=== PATIENT | female | born 1955 | race African-American/Black ===

== ENCOUNTER 2017-08-26 17:41 | Inpatient (IN) ==
[2017-08-26] MEDS ORDERED: VANCOMYCIN INJ 1,000 MG in SODIUM CHLORIDE 0.9% 250 ML IV STA (18:27)
[2017-08-26] MEDS ORDERED: hydrALAZINE 20 MG/1 ML VIAL IV STA (18:32)
[2017-08-26] MEDS ORDERED: ONDANSETRON 4 MG/2 ML VIAL IV STA (18:32)
[2017-08-26] MEDS ORDERED: MORPHINE 4 MG/1 ML VIAL IV STA (18:32)
[2017-08-26] MEDS ORDERED: FUROSEMIDE 100 MG/10 ML VIAL IV STA (18:32)
[2017-08-26] MEDS ORDERED: VANCOMYCIN 1,000 MG VIAL ONE (18:50)
[2017-08-26 19:29] LABS: Basophils % 0.1 % (0.0-0.8); Eosinophils # 0.1 10*3/uL (0.0-0.87); Eosinophils % 0.9 % (0.00-10.9); Hematocrit 36.9 VOL% (35.7-47.0); Hemoglobin 12.7 GM/DL (12.0-16.0); Immature Granulocytes % 0.4 %; Immature Granulocytes Absolute 0.03 #; Lymphocytes # 2.6 10*3/uL (1.4-4.0); Lymphocytes % 30.2 % (21.3-54.2); Mean Corpuscular HGB Conc 34.4 GM/DL (32-36); Mean Corpuscular Hemoglobin 32 PG (27-34); Mean Corpuscular Volume 91.6 FL (87-102); Mean Platelet Volume 13.3 FL (9.6-12.0); Monocytes # 0.8 10*3/uL (0.11-0.8); Monocytes % 9.1 % (1.7-12.7); Neutrophils # 5.1 10*3/uL (1.4-7.4); Neutrophils % 59.3 % (38.7-73.9); Platelet Count 223 T/CUMM (130-400); Red Blood Count 4.03 MC/CUMM (3.8-5.5); White Blood Count 8.6 T/CUMM (4-12)
[2017-08-26 19:38] LABS: INR 0.9; PT Patient Result 9.6 SECS
[2017-08-26 19:47] LABS: Apearance,Urine CLEAR (Clear); Bilirubin,Urine Negative (Negative); Blood, Urine Small mg/dL (Negative); Glucose,Urine (UA) >=500 mg/dL (Negative); Hyaline Casts,Urine 1 /LPF (0-3); Ketones,Urine Negative (Negative); Nitrite,Urine Negative (Negative); Protein,Urine 100 MG/DL; RBC,Urine 4 /HPF (0-4); Squamous Epithelial Cell,Urine Occasional /HPF (0-10); Urine Color Straw (Yellow); Urine Specific Gravity 1.015 (1.001-1.035); Urine Urobilinogen < 2.0 EU/DL (0.2-1.0); WBC,Urine 2 /HPF (0-6)
[2017-08-26 19:53] LABS: Alanine Aminotransferase 13 U/L (13-56); Albumin 2.9 G/DL (3.4-5.0); Alkaline Phosphatase 123 U/L (45-117); Aspartate Amino Transferase 9 U/L (0-37); Blood Urea Nitrogen 31 MG/DL (7-18); Calcium 9.2 MG/DL (8.5-10.1); Osmolality,Calculated 299.2 MOS/KG (273-304); Potassium 3.8 MMOL/L (3.5-5.1); Sodium 134 MMOL/L (136-145); Total Protein 7.8 G/DL (6.4-8.3); Troponin I Only < 0.015 NG/ML (0.00-0.045)
[2017-08-26 20:04] LABS: Glucose 547 MG/DL (74-106)
[2017-08-26] MEDS ORDERED: INSULIN REGULAR 100 UNIT/ML IV STA (20:08)
[2017-08-26] MEDS ORDERED: SODIUM CHLORIDE 0.9% 500 ML IV STA (20:09)
[2017-08-26] MEDS ORDERED: GLUCAGON 1 MG VIAL IM PRN (20:30)
[2017-08-26] MEDS ORDERED: DEXTROSE 50% 25 GM/50 ML VIAL IV PRN (20:30)
[2017-08-26] MEDS ORDERED: NITROGLYCERIN SL 0.4 MG TABLET SL PRN (20:32)
[2017-08-26] MEDS ORDERED: ENOXAPARIN 30 MG/0.3 ML SYRINGE SUBCUT SCH (21:00)
[2017-08-26] MEDS: SODIUM CHLORIDE 0.9% 1,000 ML IV SCH (21:45)
[2017-08-27] MEDS: INSULIN GLARGINE 100 UNIT/ML SUBCUT SCH ×2 (01:03→20:13)
[2017-08-27] MEDS: LOVASTATIN 20 MG TABLET PO SCH ×2 (01:10→20:12)
[2017-08-27] MEDS: CLINDAMYCIN INJ 600 MG in PREMIX 1 EACH IV SCH ×4 (01:10→20:11)
[2017-08-27] MEDS: INSULIN REGULAR 100 UNIT/ML SUBCUT SCH ×7 (01:11→22:14)
[2017-08-27] MEDS: CLOPIDOGREL 75 MG TABLET PO SCH ×2 (01:11→20:12)
[2017-08-27 05:49] LABS: Basophils % 0.2 % (0.0-0.8); Eosinophils # 0.1 10*3/uL (0.0-0.87); Eosinophils % 0.8 % (0.00-10.9); Hematocrit 34.5 VOL% (35.7-47.0); Hemoglobin 11.8 GM/DL (12.0-16.0); Immature Granulocytes % 0.5 %; Immature Granulocytes Absolute 0.04 #; Lymphocytes # 3.2 10*3/uL (1.4-4.0); Lymphocytes % 37.6 % (21.3-54.2); Mean Corpuscular HGB Conc 34.2 GM/DL (32-36); Mean Corpuscular Hemoglobin 31 PG (27-34); Mean Corpuscular Volume 91.5 FL (87-102); Mean Platelet Volume 13.3 FL (9.6-12.0); Monocytes # 0.7 10*3/uL (0.11-0.8); Monocytes % 8.5 % (1.7-12.7); Neutrophils # 4.5 10*3/uL (1.4-7.4); Neutrophils % 52.4 % (38.7-73.9); Platelet Count 227 T/CUMM (130-400); Red Blood Count 3.77 MC/CUMM (3.8-5.5); Red Cell Distribution Width 12.2 % (9.3-17.3); White Blood Count 8.6 T/CUMM (4-12)
[2017-08-27 06:08] LABS: Calcium 8.7 MG/DL (8.5-10.1); Osmolality,Calculated 292.5 MOS/KG (273-304); Potassium 3.6 MMOL/L (3.5-5.1)
[2017-08-27] MEDS: SODIUM CHLORIDE 0.9% 1,000 ML IV SCH ×4 (06:12→23:25)
[2017-08-27] MEDS: INSULIN LISPRO 100 UNIT/ML SUBCUT SCH ×3 (08:40→17:17)
[2017-08-27] MEDS: PANTOPRAZOLE 40 MG TABLET PO SCH (08:42)
[2017-08-27] MEDS: ISOSORBIDE MONONITRATE 30 MG TABLET PO SCH (08:42)
[2017-08-27] MEDS: ASPIRIN EC 81 MG TABLET PO SCH (08:42)
[2017-08-27] MEDS: ENOXAPARIN 40 MG/0.4 ML SYRINGE SUBCUT SCH (20:13)
[2017-08-28] MEDS: INSULIN REGULAR 100 UNIT/ML SUBCUT SCH ×6 (03:29→22:26)
[2017-08-28] MEDS: CLINDAMYCIN INJ 600 MG in PREMIX 1 EACH IV SCH ×3 (04:28→21:12)
[2017-08-28 06:26] LABS: Basophils % 0.1 % (0.0-0.8); Eosinophils # 0.1 10*3/uL (0.0-0.87); Eosinophils % 1.3 % (0.00-10.9); Hematocrit 33.8 VOL% (35.7-47.0); Hemoglobin 11.6 GM/DL (12.0-16.0); Immature Granulocytes % 0.2 %; Immature Granulocytes Absolute 0.02 #; Lymphocytes % 36.6 % (21.3-54.2); Mean Corpuscular HGB Conc 34.3 GM/DL (32-36); Mean Corpuscular Hemoglobin 31 PG (27-34); Mean Corpuscular Volume 90.9 FL (87-102); Mean Platelet Volume 13.6 FL (9.6-12.0); Monocytes # 0.8 10*3/uL (0.11-0.8); Monocytes % 9.3 % (1.7-12.7); NRBC # 0.02 10*3/uL; Neutrophils # 4.3 10*3/uL (1.4-7.4); Neutrophils % 52.5 % (38.7-73.9); Platelet Count 232 T/CUMM (130-400); Red Blood Count 3.72 MC/CUMM (3.8-5.5); Red Cell Distribution Width 12.6 % (9.3-17.3); White Blood Count 8.3 T/CUMM (4-12)
[2017-08-28 06:53] LABS: Calcium 8.4 MG/DL (8.5-10.1); Osmolality,Calculated 286.1 MOS/KG (273-304); Potassium 3.5 MMOL/L (3.5-5.1)
[2017-08-28] MEDS: ISOSORBIDE MONONITRATE 30 MG TABLET PO SCH (09:36)
[2017-08-28] MEDS: ASPIRIN EC 81 MG TABLET PO SCH (09:36)
[2017-08-28] MEDS: PANTOPRAZOLE 40 MG TABLET PO SCH (09:36)
[2017-08-28] MEDS: SODIUM CHLORIDE 0.9% 1,000 ML IV SCH (09:36)
[2017-08-28] MEDS: INSULIN LISPRO 100 UNIT/ML SUBCUT SCH ×3 (09:36→17:51)
[2017-08-28] MEDS: COLLAGENASE OINT 30 GM TUBE TOP SCH (12:58)
[2017-08-28] MEDS: LOVASTATIN 20 MG TABLET PO SCH (21:06)
[2017-08-28] MEDS: ENOXAPARIN 40 MG/0.4 ML SYRINGE SUBCUT SCH (21:06)
[2017-08-28] MEDS: CLOPIDOGREL 75 MG TABLET PO SCH (21:06)
[2017-08-28] MEDS: INSULIN GLARGINE 100 UNIT/ML SUBCUT SCH (21:07)
[2017-08-29] MEDS: INSULIN REGULAR 100 UNIT/ML SUBCUT SCH ×6 (02:22→22:12)
[2017-08-29] MEDS: CLINDAMYCIN INJ 600 MG in PREMIX 1 EACH IV SCH ×3 (04:41→20:40)
[2017-08-29 05:36] LABS: Basophils % 0.2 % (0.0-0.8); Eosinophils % 1.6 % (0.00-10.9); Hematocrit 33.7 VOL% (35.7-47.0); Hemoglobin 11.3 GM/DL (12.0-16.0); Immature Granulocytes % 0.4 %; Lymphocytes % 37.2 % (21.3-54.2); Mean Corpuscular HGB Conc 33.5 GM/DL (32-36); Mean Corpuscular Hemoglobin 31 PG (27-34); Mean Corpuscular Volume 93.4 FL (87-102); Mean Platelet Volume 13.2 FL (9.6-12.0); Monocytes % 8.9 % (1.7-12.7); Neutrophils % 51.7 % (38.7-73.9); Platelet Count 233 T/CUMM (130-400); Red Blood Count 3.61 MC/CUMM (3.8-5.5); Red Cell Distribution Width 12.5 % (9.3-17.3); White Blood Count 9.4 T/CUMM (4-12)
[2017-08-29 05:37] LABS: Eosinophils # 0.2 10*3/uL (0.0-0.87); Immature Granulocytes Absolute 0.04 #; Lymphocytes # 3.5 10*3/uL (1.4-4.0); Monocytes # 0.8 10*3/uL (0.11-0.8); Neutrophils # 4.8 10*3/uL (1.4-7.4)
[2017-08-29 06:05] LABS: Calcium 8.2 MG/DL (8.5-10.1); Osmolality,Calculated 286.8 MOS/KG (273-304); Potassium 3.2 MMOL/L (3.5-5.1)
[2017-08-29] MEDS: DEXTROSE 50% 25 GM/50 ML VIAL IV PRN (06:18)
[2017-08-29] MEDS: ASPIRIN EC 81 MG TABLET PO SCH (08:44)
[2017-08-29] MEDS: INSULIN LISPRO 100 UNIT/ML SUBCUT SCH ×3 (08:45→16:47)
[2017-08-29] MEDS: PANTOPRAZOLE 40 MG TABLET PO SCH (08:45)
[2017-08-29] MEDS: ISOSORBIDE MONONITRATE 30 MG TABLET PO SCH (08:45)
[2017-08-29] MEDS: COLLAGENASE OINT 30 GM TUBE TOP SCH (08:45)
[2017-08-29] MEDS: POTASSIUM CHLORIDE RIDER 10 MEQ in PREMIX 1 EACH IV SCH ×4 (11:51→16:46)
[2017-08-29] MEDS ORDERED: DOCUSATE SODIUM 100 MG CAPSULE PO PRN (19:34)
[2017-08-29] MEDS: CLOPIDOGREL 75 MG TABLET PO SCH (20:39)
[2017-08-29] MEDS: ENOXAPARIN 40 MG/0.4 ML SYRINGE SUBCUT SCH (20:39)
[2017-08-29] MEDS: LOVASTATIN 20 MG TABLET PO SCH (20:39)
[2017-08-29] MEDS: INSULIN GLARGINE 100 UNIT/ML SUBCUT SCH (20:41)
[2017-08-30] MEDS: INSULIN REGULAR 100 UNIT/ML SUBCUT SCH ×6 (01:25→21:12)
[2017-08-30] MEDS: CLINDAMYCIN INJ 600 MG in PREMIX 1 EACH IV SCH ×3 (05:35→21:09)
[2017-08-30 06:40] LABS: Basophils % 0.3 % (0.0-0.8); Eosinophils # 0.2 10*3/uL (0.0-0.87); Eosinophils % 2.8 % (0.00-10.9); Hematocrit 33.1 VOL% (35.7-47.0); Hemoglobin 11.3 GM/DL (12.0-16.0); Immature Granulocytes % 0.1 %; Immature Granulocytes Absolute 0.01 #; Lymphocytes # 3.1 10*3/uL (1.4-4.0); Mean Corpuscular HGB Conc 34.1 GM/DL (32-36); Mean Corpuscular Hemoglobin 31 PG (27-34); Mean Corpuscular Volume 90.4 FL (87-102); Mean Platelet Volume 12.9 FL (9.6-12.0); Monocytes # 0.7 10*3/uL (0.11-0.8); Monocytes % 10.4 % (1.7-12.7); Neutrophils % 42.4 % (38.7-73.9); Platelet Count 262 T/CUMM (130-400); Red Blood Count 3.66 MC/CUMM (3.8-5.5); Red Cell Distribution Width 12.8 % (9.3-17.3); White Blood Count 7.1 T/CUMM (4-12)
[2017-08-30 06:56] LABS: Calcium 8.4 MG/DL (8.5-10.1); Osmolality,Calculated 290.8 MOS/KG (273-304); Potassium 4.2 MMOL/L (3.5-5.1)
[2017-08-30] MEDS ORDERED: fentaNYL 100 MCG/2 ML VIAL IV ONE (08:29)
[2017-08-30] MEDS ORDERED: DIAZEPAM 5 MG TABLET PO ONE (08:29)
[2017-08-30] MEDS ORDERED: MIDAZOLAM 2 MG/2 ML VIAL IV ONE (08:29)
[2017-08-30] MEDS: INSULIN LISPRO 100 UNIT/ML SUBCUT SCH ×3 (08:52→17:13)
[2017-08-30] MEDS: ISOSORBIDE MONONITRATE 30 MG TABLET PO SCH (08:58)
[2017-08-30] MEDS: PANTOPRAZOLE 40 MG TABLET PO SCH (08:58)
[2017-08-30] MEDS ORDERED: HEPARIN/NACL 0.9% 2 UNITS/ML 2,000 ML IV ONE (10:48)
[2017-08-30] MEDS ORDERED: fentaNYL 100 MCG/2 ML VIAL ONE (10:57)
[2017-08-30] MEDS ORDERED: MIDAZOLAM 2 MG/2 ML VIAL ONE (10:58)
[2017-08-30] MEDS: COLLAGENASE OINT 30 GM TUBE TOP SCH (11:05)
[2017-08-30] MEDS: ASPIRIN EC 81 MG TABLET PO SCH (11:05)
[2017-08-30] MEDS ORDERED: HEPARIN 5,000 UNIT/1 ML VIAL ONE (11:51)
[2017-08-30] MEDS ORDERED: HEPARIN 5,000 UNIT/1 ML VIAL IV ONE (11:55)
[2017-08-30] MEDS ORDERED: hydrALAZINE 20 MG/1 ML VIAL ONE (12:20)
[2017-08-30] MEDS ORDERED: hydrALAZINE 20 MG/1 ML VIAL IV ONE (13:00)
[2017-08-30] MEDS: ACETAMINOPHEN 325 MG TABLET PO PRN (18:46)
[2017-08-30] MEDS: INSULIN GLARGINE 100 UNIT/ML SUBCUT SCH (21:07)
[2017-08-30] MEDS: CLOPIDOGREL 75 MG TABLET PO SCH (21:10)
[2017-08-30] MEDS: ENOXAPARIN 40 MG/0.4 ML SYRINGE SUBCUT SCH (21:11)
[2017-08-30] MEDS: LOVASTATIN 20 MG TABLET PO SCH (21:11)
[2017-08-31] MEDS: INSULIN REGULAR 100 UNIT/ML SUBCUT SCH ×6 (00:33→22:19)
[2017-08-31] MEDS: CLINDAMYCIN INJ 600 MG in PREMIX 1 EACH IV SCH ×3 (05:20→22:20)
[2017-08-31] MEDS ORDERED: ALBUTEROL/IPRATROPIUM 3 ML NEB RESP TX ONE ×2 (06:00→07:00)
[2017-08-31] MEDS ORDERED: FAMOTIDINE 20 MG TABLET PO ONE ×2 (06:00→06:30)
[2017-08-31 06:05] LABS: Basophils % 0.5 % (0.0-0.8); Eosinophils # 0.1 10*3/uL (0.0-0.87); Eosinophils % 1.4 % (0.00-10.9); Hematocrit 33.8 VOL% (35.7-47.0); Hemoglobin 11.5 GM/DL (12.0-16.0); Immature Granulocytes % 0.5 %; Immature Granulocytes Absolute 0.04 #; Lymphocytes # 1.8 10*3/uL (1.4-4.0); Lymphocytes % 21.2 % (21.3-54.2); Mean Corpuscular Hemoglobin 31 PG (27-34); Mean Corpuscular Volume 91.4 FL (87-102); Mean Platelet Volume 13.3 FL (9.6-12.0); Monocytes # 0.7 10*3/uL (0.11-0.8); Monocytes % 8.4 % (1.7-12.7); Neutrophils # 5.7 10*3/uL (1.4-7.4); Platelet Count 281 T/CUMM (130-400); Red Cell Distribution Width 13.2 % (9.3-17.3); White Blood Count 8.4 T/CUMM (4-12)
[2017-08-31 06:36] LABS: Calcium 8.4 MG/DL (8.5-10.1); Osmolality,Calculated 286.3 MOS/KG (273-304); Potassium 4.1 MMOL/L (3.5-5.1)
[2017-08-31] MEDS ORDERED: DIAZEPAM 5 MG TABLET PO ONE (07:00)
[2017-08-31] MEDS: ONDANSETRON 4 MG/2 ML VIAL IV PRN ×3 (08:12→22:34)
[2017-08-31] MEDS: FAMOTIDINE 20 MG/2 ML VIAL IV ONE ×2 (08:12→09:55)
[2017-08-31] MEDS ORDERED: LIDOCAINE 1% 20 ML VIAL ONE (08:30)
[2017-08-31] MEDS ORDERED: BUPIVACAINE 0.5% 50 ML VIAL ONE (09:11)
[2017-08-31] MEDS ORDERED: PROPOFOL 200 MG/20 ML VIAL IV ONE (09:46)
[2017-08-31] MEDS ORDERED: MIDAZOLAM 2 MG/2 ML VIAL ONE (09:47)
[2017-08-31] MEDS: INSULIN LISPRO 100 UNIT/ML SUBCUT SCH ×3 (09:56→17:16)
[2017-08-31] MEDS: ASPIRIN EC 81 MG TABLET PO SCH (10:46)
[2017-08-31] MEDS: PANTOPRAZOLE 40 MG TABLET PO SCH (10:46)
[2017-08-31] MEDS: ISOSORBIDE MONONITRATE 30 MG TABLET PO SCH (10:46)
[2017-08-31] MEDS: COLLAGENASE OINT 30 GM TUBE TOP SCH (10:46)
[2017-08-31] MEDS ORDERED: GLUCAGON 1 MG VIAL IM PRN (14:32)
[2017-08-31] MEDS ORDERED: DEXTROSE 50% 25 GM/50 ML VIAL IV PRN (14:32)
[2017-08-31] MEDS: LOVASTATIN 20 MG TABLET PO SCH (22:19)
[2017-08-31] MEDS: INSULIN GLARGINE 100 UNIT/ML SUBCUT SCH (22:20)
[2017-08-31] MEDS: ENOXAPARIN 40 MG/0.4 ML SYRINGE SUBCUT SCH (22:22)
[2017-08-31] MEDS: CLOPIDOGREL 75 MG TABLET PO SCH (22:22)
[2017-09-01] MEDS: INSULIN REGULAR 100 UNIT/ML SUBCUT SCH ×6 (00:33→21:04)
[2017-09-01] MEDS: ACETAMINOPHEN 325 MG TABLET PO PRN (00:33)
[2017-09-01 04:36] LABS: Basophils % 0.3 % (0.0-0.8); Eosinophils # 0.1 10*3/uL (0.0-0.87); Eosinophils % 0.9 % (0.00-10.9); Hemoglobin 9.8 GM/DL (12.0-16.0); Immature Granulocytes % 0.3 %; Immature Granulocytes Absolute 0.02 #; Lymphocytes # 1.4 10*3/uL (1.4-4.0); Lymphocytes % 20.3 % (21.3-54.2); Mean Corpuscular HGB Conc 32.7 GM/DL (32-36); Mean Corpuscular Hemoglobin 30 PG (27-34); Mean Corpuscular Volume 93.2 FL (87-102); Mean Platelet Volume 12.6 FL (9.6-12.0); Monocytes # 0.8 10*3/uL (0.11-0.8); Monocytes % 11.7 % (1.7-12.7); Neutrophils # 4.6 10*3/uL (1.4-7.4); Neutrophils % 66.5 % (38.7-73.9); Platelet Count 252 T/CUMM (130-400); Red Blood Count 3.22 MC/CUMM (3.8-5.5); White Blood Count 6.9 T/CUMM (4-12)
[2017-09-01] MEDS: CLINDAMYCIN INJ 600 MG in PREMIX 1 EACH IV SCH ×3 (05:31→21:21)
[2017-09-01] MEDS: ONDANSETRON 4 MG/2 ML VIAL IV PRN ×4 (06:54→21:18)
[2017-09-01 07:10] LABS: Calcium 8.2 MG/DL (8.5-10.1); Osmolality,Calculated 280.3 MOS/KG (273-304)
[2017-09-01] MEDS: DEXTROSE 50% 25 GM/50 ML VIAL IV PRN (07:33)
[2017-09-01] MEDS: INSULIN LISPRO 100 UNIT/ML SUBCUT SCH ×3 (08:06→16:57)
[2017-09-01] MEDS: PANTOPRAZOLE 40 MG TABLET PO SCH (08:12)
[2017-09-01] MEDS: ISOSORBIDE MONONITRATE 30 MG TABLET PO SCH (08:12)
[2017-09-01] MEDS: ASPIRIN EC 81 MG TABLET PO SCH (08:12)
[2017-09-01] MEDS: COLLAGENASE OINT 30 GM TUBE TOP SCH (09:03)
[2017-09-01] MEDS: SODIUM HYPOCHLORITE 0.25% IRRIG 473 ML BOTTLE TOP SCH (09:03)
[2017-09-01 13:01] LABS: Basophils % 0.2 % (0.0-0.8); Eosinophils # 0.1 10*3/uL (0.0-0.87); Eosinophils % 1.2 % (0.00-10.9); Hematocrit 29.6 VOL% (35.7-47.0); Hemoglobin 10.1 GM/DL (12.0-16.0); Immature Granulocytes % 0.4 %; Immature Granulocytes Absolute 0.03 #; Lymphocytes # 1.3 10*3/uL (1.4-4.0); Lymphocytes % 15.7 % (21.3-54.2); Mean Corpuscular HGB Conc 34.1 GM/DL (32-36); Mean Corpuscular Hemoglobin 31 PG (27-34); Mean Corpuscular Volume 90.5 FL (87-102); Monocytes % 11.8 % (1.7-12.7); Neutrophils # 5.9 10*3/uL (1.4-7.4); Neutrophils % 70.7 % (38.7-73.9); Platelet Count 251 T/CUMM (130-400); Red Blood Count 3.27 MC/CUMM (3.8-5.5); Red Cell Distribution Width 13.1 % (9.3-17.3); White Blood Count 8.4 T/CUMM (4-12)
[2017-09-01] MEDS: CLOPIDOGREL 75 MG TABLET PO SCH (21:16)
[2017-09-01] MEDS: LOVASTATIN 20 MG TABLET PO SCH (21:16)
[2017-09-01] MEDS: ENOXAPARIN 40 MG/0.4 ML SYRINGE SUBCUT SCH (21:18)
[2017-09-01] MEDS: INSULIN GLARGINE 100 UNIT/ML SUBCUT SCH (21:24)
[2017-09-02] MEDS: ONDANSETRON 4 MG/2 ML VIAL IV PRN ×2 (00:54→08:14)
[2017-09-02] MEDS: INSULIN REGULAR 100 UNIT/ML SUBCUT SCH ×4 (00:55→11:59)
[2017-09-02] MEDS: CLINDAMYCIN INJ 600 MG in PREMIX 1 EACH IV SCH ×2 (04:32→13:02)
[2017-09-02] MEDS: INSULIN LISPRO 100 UNIT/ML SUBCUT SCH ×2 (07:52→11:58)
[2017-09-02] MEDS: ASPIRIN EC 81 MG TABLET PO SCH (08:14)
[2017-09-02] MEDS: ISOSORBIDE MONONITRATE 30 MG TABLET PO SCH (08:14)
[2017-09-02] MEDS: PANTOPRAZOLE 40 MG TABLET PO SCH (08:14)
[2017-09-02] MEDS: COLLAGENASE OINT 30 GM TUBE TOP SCH (09:01)
[2017-09-02] MEDS: SODIUM HYPOCHLORITE 0.25% IRRIG 473 ML BOTTLE TOP SCH (09:01)
[2017-09-02 12:42] VITALS: BP 141/86
== END 2017-09-02 13:25 | disposition home or self-care (01) | DRG 364 ==
LOC: N.ED 17:41 → N.EDINP 17:41 → N.2E 21:21 → SUATTDRO 08-28 12:56
PROVIDERS: ADMIT Internal Medicine; ATTEND Internal Medicine Nephrology

== ENCOUNTER 2017-10-05 16:21 | Inpatient (IN) ==
[2017-10-05 18:20] LABS: Basophils % 0.2 % (0.0-0.8); Eosinophils # 0.1 10*3/uL (0.0-0.87); Eosinophils % 0.3 % (0.00-10.9); Hematocrit 26.5 VOL% (35.7-47.0); Immature Granulocytes % 0.9 %; Immature Granulocytes Absolute 0.16 #; Lymphocytes # 1.9 10*3/uL (1.4-4.0); Lymphocytes % 10.7 % (21.3-54.2); Mean Corpuscular Hemoglobin 31 PG (27-34); Mean Corpuscular Volume 89.8 FL (87-102); Mean Platelet Volume 13.2 FL (9.6-12.0); Monocytes # 1.3 10*3/uL (0.11-0.8); Monocytes % 7.6 % (1.7-12.7); Neutrophils # 14.1 10*3/uL (1.4-7.4); Neutrophils % 80.3 % (38.7-73.9); Platelet Count 319 T/CUMM (130-400); Red Blood Count 2.95 MC/CUMM (3.8-5.5); Red Cell Distribution Width 13.1 % (9.3-17.3); White Blood Count 17.5 T/CUMM (4-12)
[2017-10-05 18:41] LABS: Albumin 1.7 G/DL (3.4-5.0); Bilirubin,Total 0.6 MG/DL (0.2-1.0); Calcium 8.8 MG/DL (8.5-10.1); Osmolality,Calculated 282.1 MOS/KG (273-304); Potassium 3.4 MMOL/L (3.5-5.1); Total Protein 7.2 G/DL (6.4-8.3)
[2017-10-05] MEDS ORDERED: LABETALOL 20 MG/4 ML SYRINGE IV STA (19:46)
[2017-10-05] MEDS ORDERED: FUROSEMIDE 20 MG/2 ML VIAL IV STA (19:57)
[2017-10-05] MEDS ORDERED: FUROSEMIDE 40 MG/4 ML VIAL IV STA (20:01)
[2017-10-05] MEDS ORDERED: LABETALOL 100 MG/20 ML VIAL IV ONE (20:09)
[2017-10-05 20:46] LABS: Apearance,Urine Slightly Hazy (Clear); Bilirubin,Urine Negative (Negative); Blood, Urine Small mg/dL (Negative); Glucose,Urine (UA) >=500 mg/dL (Negative); Ketones,Urine Negative (Negative); Mucus,Urine Occasional /LPF (Occasional); Nitrite,Urine Negative (Negative); Protein,Urine >=500 MG/DL; RBC,Urine 1 /HPF (0-4); Squamous Epithelial Cell,Urine Occasional /HPF (0-10); Urine Color Yellow (Yellow); Urine Specific Gravity 1.017 (1.001-1.035); Urine Urobilinogen < 2.0 EU/DL (0.2-1.0); WBC,Urine 1 /HPF (0-6)
[2017-10-05] MEDS: ALBUTEROL/IPRATROPIUM 3 ML NEB RESP TX SCH (20:49)
[2017-10-05 21:03] LABS: Lactic Acid 2.4 MMOL/L (0.4-2.0)
[2017-10-05] MEDS ORDERED: MORPHINE 4 MG/1 ML VIAL IV STA (21:31)
[2017-10-05] MEDS ORDERED: ACETAMINOPHEN 325 MG TABLET PO ONE (21:31)
[2017-10-05] MEDS ORDERED: ACETAMINOPHEN 325 MG TABLET ONE (21:38)
[2017-10-05] MEDS ORDERED: LABETALOL 20 MG/4 ML SYRINGE IV PRN (21:38)
[2017-10-05] MEDS ORDERED: MORPHINE 4 MG/1 ML VIAL ONE (21:39)
[2017-10-05] MEDS ORDERED: GLUCAGON 1 MG VIAL IM PRN (22:41)
[2017-10-05] MEDS ORDERED: NITROGLYCERIN SL 0.4 MG TABLET SL PRN (22:41)
[2017-10-06] MEDS: CLOPIDOGREL 75 MG TABLET PO SCH ×2 (00:42→20:48)
[2017-10-06] MEDS: INSULIN GLARGINE 100 UNIT/ML SUBCUT SCH ×4 (00:42→20:56)
[2017-10-06] MEDS: GABAPENTIN 600 MG TABLET PO SCH ×2 (00:42→20:47)
[2017-10-06] MEDS: hydrALAZINE 25 MG TABLET PO SCH ×2 (00:42→08:42)
[2017-10-06] MEDS: FUROSEMIDE 40 MG/4 ML VIAL IV SCH ×2 (00:43→08:42)
[2017-10-06] MEDS: CARVEDILOL 12.5 MG TABLET PO SCH ×3 (00:43→20:48)
[2017-10-06] MEDS: LOVASTATIN 20 MG TABLET PO SCH ×2 (00:43→20:47)
[2017-10-06] MEDS: CLINDAMYCIN INJ 600 MG in PREMIX 1 EACH IV SCH ×4 (00:53→23:37)
[2017-10-06] MEDS: ALBUTEROL/IPRATROPIUM 3 ML NEB RESP TX SCH ×4 (01:07→19:32)
[2017-10-06] MEDS: MEROPENEM 500 MG in SODIUM CHLORIDE 0.9% 100 ML IV SCH ×3 (01:28→20:45)
[2017-10-06 05:34] LABS: Basophils % 0.1 % (0.0-0.8); Eosinophils % 0.2 % (0.00-10.9); Hematocrit 23.7 VOL% (35.7-47.0); Hemoglobin 7.9 GM/DL (12.0-16.0); Immature Granulocytes % 0.9 %; Immature Granulocytes Absolute 0.14 #; Lymphocytes % 13.5 % (21.3-54.2); Mean Corpuscular HGB Conc 33.3 GM/DL (32-36); Mean Corpuscular Hemoglobin 30 PG (27-34); Mean Corpuscular Volume 89.8 FL (87-102); Mean Platelet Volume 13.5 FL (9.6-12.0); Monocytes % 6.5 % (1.7-12.7); Neutrophils # 11.8 10*3/uL (1.4-7.4); Neutrophils % 78.8 % (38.7-73.9); Platelet Count 284 T/CUMM (130-400); Red Blood Count 2.64 MC/CUMM (3.8-5.5); Red Cell Distribution Width 12.9 % (9.3-17.3)
[2017-10-06 05:59] LABS: Hypochromasia 1+; Lymphocytes 10 % (20-55); Ovalocytes Slight; Platelet Estimate Adequate; Segmented Neutrophils 84 % (50-85); Total Cells Counted 100
[2017-10-06 06:27] LABS: Potassium 3.6 MMOL/L (3.5-5.1)
[2017-10-06 06:29] LABS: Calcium 8.2 MG/DL (8.5-10.1)
[2017-10-06 06:34] LABS: Osmolality,Calculated 285.1 MOS/KG (273-304)
[2017-10-06 06:57] LABS: Vitamin B12 1290 PG/ML (211-911)
[2017-10-06 07:20] LABS: Sedimentation Rate-Westergren 126 MM/HR (0-30)
[2017-10-06] MEDS ORDERED: hydrALAZINE 10 MG TABLET ONE (07:56)
[2017-10-06] MEDS: INSULIN LISPRO 100 UNIT/ML SUBCUT SCH ×3 (08:41→16:41)
[2017-10-06] MEDS: CITALOPRAM 20 MG TABLET PO SCH (08:42)
[2017-10-06] MEDS: ASPIRIN EC 325 MG TABLET PO SCH (08:42)
[2017-10-06] MEDS: ISOSORBIDE MONONITRATE 30 MG TABLET PO SCH (08:42)
[2017-10-06] MEDS ORDERED: CLOPIDOGREL 75 MG TABLET PO SCH (09:00)
[2017-10-06] MEDS ORDERED: ASPIRIN EC 81 MG TABLET PO SCH (09:00)
[2017-10-06] MEDS ORDERED: INSULIN GLARGINE 100 UNIT/ML SUBCUT ONE (11:00)
[2017-10-06] MEDS: SODIUM HYPOCHLORITE 0.25% IRRIG 473 ML BOTTLE TOP SCH (12:35)
[2017-10-06] MEDS: COLLAGENASE OINT 30 GM TUBE TOP SCH (12:35)
[2017-10-06] MEDS: ASCORBIC ACID 500 MG TABLET PO SCH ×2 (12:35→20:48)
[2017-10-06] MEDS: POTASSIUM CHLORIDE INJ 10 MEQ in SODIUM CHLORIDE 0.9% 1,000 ML IV SCH (13:02)
[2017-10-07] MEDS: ALBUTEROL/IPRATROPIUM 3 ML NEB RESP TX SCH ×5 (00:15→23:42)
[2017-10-07] MEDS: DEXTROSE 50% 25 GM/50 ML VIAL IV PRN ×2 (03:35→16:58)
[2017-10-07] MEDS: POTASSIUM CHLORIDE INJ 10 MEQ in SODIUM CHLORIDE 0.9% 1,000 ML IV SCH ×2 (03:54→21:37)
[2017-10-07 04:57] LABS: Basophils % 0.2 % (0.0-0.8); Eosinophils # 0.2 10*3/uL (0.0-0.87); Eosinophils % 1.3 % (0.00-10.9); Hematocrit 24.5 VOL% (35.7-47.0); Hemoglobin 8.3 GM/DL (12.0-16.0); Immature Granulocytes % 0.6 %; Immature Granulocytes Absolute 0.08 #; Lymphocytes # 1.6 10*3/uL (1.4-4.0); Lymphocytes % 12.2 % (21.3-54.2); Mean Corpuscular HGB Conc 33.9 GM/DL (32-36); Mean Corpuscular Hemoglobin 30 PG (27-34); Mean Corpuscular Volume 88.8 FL (87-102); Mean Platelet Volume 13.3 FL (9.6-12.0); Monocytes % 7.6 % (1.7-12.7); Neutrophils # 9.9 10*3/uL (1.4-7.4); Neutrophils % 78.1 % (38.7-73.9); Platelet Count 297 T/CUMM (130-400); Red Blood Count 2.76 MC/CUMM (3.8-5.5); Red Cell Distribution Width 13.4 % (9.3-17.3); White Blood Count 12.7 T/CUMM (4-12)
[2017-10-07 05:25] LABS: Calcium 8.2 MG/DL (8.5-10.1); Osmolality,Calculated 269.9 MOS/KG (273-304); Potassium 3.4 MMOL/L (3.5-5.1)
[2017-10-07] MEDS: CLINDAMYCIN INJ 600 MG in PREMIX 1 EACH IV SCH ×3 (05:27→22:10)
[2017-10-07 05:39] LABS: Band Neutrophils 3 % (0-10); Burr Cells Slight; Eosinophils 1 % (0-10); Hypochromasia 1+; Lymphocytes 12 % (20-55); Ovalocytes Slight; Platelet Estimate Adequate; Segmented Neutrophils 70 % (50-85); Total Cells Counted 100
[2017-10-07] MEDS ORDERED: INSULIN GLARGINE 100 UNIT/ML SUBCUT SCH (09:00)
[2017-10-07] MEDS: INSULIN LISPRO 100 UNIT/ML SUBCUT SCH ×4 (09:08→21:37)
[2017-10-07] MEDS: ASCORBIC ACID 500 MG TABLET PO SCH ×2 (09:08→21:36)
[2017-10-07] MEDS: ISOSORBIDE MONONITRATE 30 MG TABLET PO SCH (09:09)
[2017-10-07] MEDS: CARVEDILOL 12.5 MG TABLET PO SCH ×2 (09:09→21:36)
[2017-10-07] MEDS: CITALOPRAM 20 MG TABLET PO SCH (09:09)
[2017-10-07] MEDS: ASPIRIN EC 325 MG TABLET PO SCH (09:09)
[2017-10-07] MEDS: MEROPENEM 500 MG in SODIUM CHLORIDE 0.9% 100 ML IV SCH ×2 (10:08→21:37)
[2017-10-07] MEDS: COLLAGENASE OINT 30 GM TUBE TOP SCH (10:10)
[2017-10-07] MEDS: SODIUM HYPOCHLORITE 0.25% IRRIG 473 ML BOTTLE TOP SCH (10:10)
[2017-10-07] MEDS ORDERED: GLUCAGON 1 MG VIAL IM PRN (10:51)
[2017-10-07] MEDS ORDERED: DEXTROSE 50% 25 GM/50 ML VIAL IV PRN (10:51)
[2017-10-07] MEDS: LOVASTATIN 20 MG TABLET PO SCH (21:36)
[2017-10-07] MEDS: CLOPIDOGREL 75 MG TABLET PO SCH (21:36)
[2017-10-07] MEDS: GABAPENTIN 600 MG TABLET PO SCH (21:36)
[2017-10-07] MEDS: INSULIN GLARGINE 100 UNIT/ML SUBCUT SCH (21:37)
[2017-10-08 05:21] LABS: Calcium 7.8 MG/DL (8.5-10.1); Osmolality,Calculated 264.9 MOS/KG (273-304); Potassium 4.1 MMOL/L (3.5-5.1)
[2017-10-08] MEDS: CLINDAMYCIN INJ 600 MG in PREMIX 1 EACH IV SCH ×3 (05:45→23:35)
[2017-10-08] MEDS: ALBUTEROL/IPRATROPIUM 3 ML NEB RESP TX SCH ×3 (07:00→19:23)
[2017-10-08] MEDS: INSULIN LISPRO 100 UNIT/ML SUBCUT SCH ×3 (08:39→17:39)
[2017-10-08] MEDS: ASCORBIC ACID 500 MG TABLET PO SCH ×2 (08:40→22:04)
[2017-10-08] MEDS: CARVEDILOL 12.5 MG TABLET PO SCH ×2 (08:40→22:05)
[2017-10-08] MEDS: CITALOPRAM 20 MG TABLET PO SCH (08:40)
[2017-10-08] MEDS: ISOSORBIDE MONONITRATE 30 MG TABLET PO SCH (08:40)
[2017-10-08] MEDS: ASPIRIN EC 325 MG TABLET PO SCH (08:40)
[2017-10-08] MEDS: MEROPENEM 500 MG in SODIUM CHLORIDE 0.9% 100 ML IV SCH ×2 (08:43→22:04)
[2017-10-08] MEDS: SODIUM HYPOCHLORITE 0.25% IRRIG 473 ML BOTTLE TOP SCH (08:47)
[2017-10-08] MEDS ORDERED: INSULIN GLARGINE 100 UNIT/ML SUBCUT SCH (09:00)
[2017-10-08 09:30] LABS: Hemoglobin A1 (Alkaline) 97.8 % (96.5-98.5); Hemoglobin A2 (Alkaline) 2.2 % (1.5-3.5)
[2017-10-08] MEDS: COLLAGENASE OINT 30 GM TUBE TOP SCH (10:32)
[2017-10-08] MEDS: POTASSIUM CHLORIDE INJ 10 MEQ in SODIUM CHLORIDE 0.9% 1,000 ML IV SCH (15:34)
[2017-10-08] MEDS: INSULIN GLARGINE 100 UNIT/ML SUBCUT SCH (22:03)
[2017-10-08] MEDS: GABAPENTIN 600 MG TABLET PO SCH (22:04)
[2017-10-08] MEDS: CLOPIDOGREL 75 MG TABLET PO SCH (22:05)
[2017-10-08] MEDS: LOVASTATIN 20 MG TABLET PO SCH (22:05)
[2017-10-09] MEDS: ALBUTEROL/IPRATROPIUM 3 ML NEB RESP TX SCH ×4 (00:34→20:46)
[2017-10-09 03:54] LABS: Basophils % 0.1 % (0.0-0.8); Eosinophils # 0.1 10*3/uL (0.0-0.87); Eosinophils % 0.9 % (0.00-10.9); Immature Granulocytes % 0.7 %; Immature Granulocytes Absolute 0.09 #; Lymphocytes # 3.1 10*3/uL (1.4-4.0); Lymphocytes % 22.7 % (21.3-54.2); Mean Corpuscular HGB Conc 33.3 GM/DL (32-36); Mean Corpuscular Hemoglobin 30 PG (27-34); Mean Corpuscular Volume 89.7 FL (87-102); Mean Platelet Volume 12.8 FL (9.6-12.0); Monocytes # 1.2 10*3/uL (0.11-0.8); Monocytes % 8.4 % (1.7-12.7); Neutrophils # 9.2 10*3/uL (1.4-7.4); Neutrophils % 67.2 % (38.7-73.9); Platelet Count 301 T/CUMM (130-400); Red Blood Count 2.34 MC/CUMM (3.8-5.5); Red Cell Distribution Width 13.8 % (9.3-17.3); White Blood Count 13.6 T/CUMM (4-12)
[2017-10-09] MEDS: POTASSIUM CHLORIDE INJ 10 MEQ in SODIUM CHLORIDE 0.9% 1,000 ML IV SCH ×2 (04:06→21:38)
[2017-10-09 04:14] LABS: Osmolality,Calculated 266.1 MOS/KG (273-304); Potassium 4.5 MMOL/L (3.5-5.1)
[2017-10-09 04:56] LABS: Band Neutrophils 1 % (0-10); Eosinophils 1 % (0-10); Hypochromasia 1+; Lymphocytes 26 % (20-55); Ovalocytes Slight; Platelet Estimate Adequate; Segmented Neutrophils 62 % (50-85); Total Cells Counted 100
[2017-10-09] MEDS: ISOSORBIDE MONONITRATE 30 MG TABLET PO SCH (08:20)
[2017-10-09] MEDS: ASCORBIC ACID 500 MG TABLET PO SCH ×2 (08:20→21:37)
[2017-10-09] MEDS: ASPIRIN EC 81 MG TABLET PO SCH (08:20)
[2017-10-09] MEDS: CITALOPRAM 20 MG TABLET PO SCH (08:20)
[2017-10-09] MEDS: INSULIN LISPRO 100 UNIT/ML SUBCUT SCH ×3 (08:21→16:00)
[2017-10-09] MEDS: CLINDAMYCIN INJ 600 MG in PREMIX 1 EACH IV SCH ×3 (08:21→23:22)
[2017-10-09] MEDS: CARVEDILOL 12.5 MG TABLET PO SCH ×2 (08:21→21:32)
[2017-10-09] MEDS: SODIUM HYPOCHLORITE 0.25% IRRIG 473 ML BOTTLE TOP SCH (08:22)
[2017-10-09] MEDS ORDERED: SODIUM CHLORIDE 0.9% 1,000 ML IV PRN (08:50)
[2017-10-09] MEDS: MEROPENEM 500 MG in SODIUM CHLORIDE 0.9% 100 ML IV SCH ×2 (10:12→21:38)
[2017-10-09] MEDS: COLLAGENASE OINT 30 GM TUBE TOP SCH (10:12)
[2017-10-09] MEDS: INSULIN GLARGINE 100 UNIT/ML SUBCUT SCH (21:32)
[2017-10-09] MEDS: LOVASTATIN 20 MG TABLET PO SCH (21:38)
[2017-10-09] MEDS: GABAPENTIN 600 MG TABLET PO SCH (21:38)
[2017-10-09] MEDS: CLOPIDOGREL 75 MG TABLET PO SCH (21:38)
[2017-10-10] MEDS: ALBUTEROL/IPRATROPIUM 3 ML NEB RESP TX SCH ×4 (00:45→19:11)
[2017-10-10] MEDS: POTASSIUM CHLORIDE INJ 10 MEQ in SODIUM CHLORIDE 0.9% 1,000 ML IV SCH (03:59)
[2017-10-10 04:24] LABS: Basophils % 0.1 % (0.0-0.8); Eosinophils # 0.1 10*3/uL (0.0-0.87); Eosinophils % 0.6 % (0.00-10.9); Hemoglobin 8.1 GM/DL (12.0-16.0); Immature Granulocytes % 1.4 %; Lymphocytes # 2.4 10*3/uL (1.4-4.0); Lymphocytes % 17.2 % (21.3-54.2); Mean Corpuscular HGB Conc 33.8 GM/DL (32-36); Mean Corpuscular Hemoglobin 30 PG (27-34); Mean Corpuscular Volume 88.2 FL (87-102); Mean Platelet Volume 12.4 FL (9.6-12.0); Monocytes # 1.3 10*3/uL (0.11-0.8); Monocytes % 9.3 % (1.7-12.7); Neutrophils # 9.9 10*3/uL (1.4-7.4); Neutrophils % 71.4 % (38.7-73.9); Platelet Count 316 T/CUMM (130-400); Red Blood Count 2.72 MC/CUMM (3.8-5.5); White Blood Count 13.9 T/CUMM (4-12)
[2017-10-10 05:04] LABS: Calcium 7.9 MG/DL (8.5-10.1); Osmolality,Calculated 260.8 MOS/KG (273-304); Potassium 5.6 MMOL/L (3.5-5.1)
[2017-10-10] MEDS: CLINDAMYCIN INJ 600 MG in PREMIX 1 EACH IV SCH ×3 (05:13→21:23)
[2017-10-10] MEDS: ASPIRIN EC 81 MG TABLET PO SCH (09:15)
[2017-10-10] MEDS: MEROPENEM 500 MG in SODIUM CHLORIDE 0.9% 100 ML IV SCH ×2 (09:15→22:42)
[2017-10-10] MEDS: ASCORBIC ACID 500 MG TABLET PO SCH ×2 (09:15→21:25)
[2017-10-10] MEDS: CITALOPRAM 20 MG TABLET PO SCH (09:15)
[2017-10-10] MEDS: CARVEDILOL 12.5 MG TABLET PO SCH ×2 (09:15→21:25)
[2017-10-10] MEDS: ISOSORBIDE MONONITRATE 30 MG TABLET PO SCH (09:15)
[2017-10-10] MEDS: SODIUM HYPOCHLORITE 0.25% IRRIG 473 ML BOTTLE TOP SCH (12:03)
[2017-10-10] MEDS: COLLAGENASE OINT 30 GM TUBE TOP SCH (12:03)
[2017-10-10] MEDS: INSULIN LISPRO 100 UNIT/ML SUBCUT SCH ×2 (12:03→16:47)
[2017-10-10] MEDS: INSULIN GLARGINE 100 UNIT/ML SUBCUT SCH (20:58)
[2017-10-10] MEDS: CLOPIDOGREL 75 MG TABLET PO SCH (21:25)
[2017-10-10] MEDS: LOVASTATIN 20 MG TABLET PO SCH (21:25)
[2017-10-10] MEDS: GABAPENTIN 600 MG TABLET PO SCH (21:26)
[2017-10-10] MEDS ORDERED: SODIUM CHLORIDE 1 GM TABLET PO ONE (21:30)
[2017-10-10] MEDS ORDERED: ONDANSETRON 4 MG/2 ML VIAL ONE (21:40)
[2017-10-11] MEDS: ALBUTEROL/IPRATROPIUM 3 ML NEB RESP TX SCH ×4 (00:34→19:20)
[2017-10-11 05:15] LABS: Basophils % 0.2 % (0.0-0.8); Eosinophils # 0.2 10*3/uL (0.0-0.87); Eosinophils % 1.4 % (0.00-10.9); Hematocrit 24.7 VOL% (35.7-47.0); Hemoglobin 8.3 GM/DL (12.0-16.0); Immature Granulocytes % 2.2 %; Immature Granulocytes Absolute 0.28 #; Lymphocytes # 2.7 10*3/uL (1.4-4.0); Lymphocytes % 21.9 % (21.3-54.2); Mean Corpuscular HGB Conc 33.6 GM/DL (32-36); Mean Corpuscular Hemoglobin 30 PG (27-34); Mean Corpuscular Volume 89.5 FL (87-102); Monocytes # 1.3 10*3/uL (0.11-0.8); Monocytes % 10.2 % (1.7-12.7); Neutrophils % 64.1 % (38.7-73.9); Platelet Count 338 T/CUMM (130-400); Red Blood Count 2.76 MC/CUMM (3.8-5.5); Red Cell Distribution Width 13.8 % (9.3-17.3); White Blood Count 12.5 T/CUMM (4-12)
[2017-10-11 05:58] LABS: Osmolality,Calculated 261.9 MOS/KG (273-304); Potassium 5.9 MMOL/L (3.5-5.1)
[2017-10-11] MEDS: CLINDAMYCIN INJ 600 MG in PREMIX 1 EACH IV SCH ×3 (06:26→22:19)
[2017-10-11] MEDS: INSULIN LISPRO 100 UNIT/ML SUBCUT SCH ×3 (08:52→17:11)
[2017-10-11] MEDS: MEROPENEM 500 MG in SODIUM CHLORIDE 0.9% 100 ML IV SCH ×2 (10:23→21:36)
[2017-10-11] MEDS: SODIUM CHLORIDE 0.9% 1,000 ML IV SCH ×2 (10:23→21:36)
[2017-10-11] MEDS: CITALOPRAM 20 MG TABLET PO SCH (10:27)
[2017-10-11] MEDS: ASPIRIN EC 81 MG TABLET PO SCH (10:27)
[2017-10-11] MEDS: ASCORBIC ACID 500 MG TABLET PO SCH ×2 (10:27→21:34)
[2017-10-11] MEDS: ISOSORBIDE MONONITRATE 30 MG TABLET PO SCH (10:27)
[2017-10-11] MEDS: SODIUM POLYSTYRENE SULFATE 15 GM/60 ML BOTTLE PO SCH ×3 (10:27→22:42)
[2017-10-11] MEDS: CARVEDILOL 12.5 MG TABLET PO SCH ×2 (10:27→21:35)
[2017-10-11] MEDS: SODIUM HYPOCHLORITE 0.25% IRRIG 473 ML BOTTLE TOP SCH (10:28)
[2017-10-11] MEDS: COLLAGENASE OINT 30 GM TUBE TOP SCH (10:28)
[2017-10-11 11:17] LABS: Amorphous Crystals,Urine Occasional /HPF (Few); Apearance,Urine Slightly Hazy (Clear); Bilirubin,Urine Negative (Negative); Blood, Urine Negative (Negative); Glucose,Urine (UA) 50 mg/dL (Negative); Ketones,Urine Negative (Negative); Mucus,Urine Occasional /LPF (Occasional); Nitrite,Urine Negative (Negative); Protein,Urine 100 MG/DL; RBC,Urine 3 /HPF (0-4); Squamous Epithelial Cell,Urine Occasional /HPF (0-10); Urine Color Yellow (Yellow); Urine Specific Gravity 1.013 (1.001-1.035); Urine Urobilinogen < 2.0 EU/DL (0.2-1.0)
[2017-10-11] MEDS: ONDANSETRON 4 MG TABLET PO PRN ×2 (17:15→21:35)
[2017-10-11 17:50] LABS: Osmolality,Calculated 260.3 MOS/KG (273-304); Potassium 5.8 MMOL/L (3.5-5.1)
[2017-10-11] MEDS ORDERED: SODIUM CHLORIDE 1 GM TABLET PO ONE (20:53)
[2017-10-11 21:19] LABS: Calcium 7.5 MG/DL (8.5-10.1); Osmolality,Calculated 267.6 MOS/KG (273-304); Potassium 5.3 MMOL/L (3.5-5.1)
[2017-10-11 21:25] LABS: Apearance,Urine CLOUDY (Clear); Bacteria,Urine Moderate /HPF (Few); Bilirubin,Urine Negative (Negative); Blood, Urine Negative (Negative); Glucose,Urine (UA) 150 mg/dL (Negative); Ketones,Urine Negative (Negative); Nitrite,Urine Negative (Negative); Protein,Urine 100 MG/DL; RBC,Urine 4 /HPF (0-4); Squamous Epithelial Cell,Urine Occasional /HPF (0-10); Urine Color Yellow (Yellow); Urine Urobilinogen < 2.0 EU/DL (0.2-1.0); WBC,Urine 9 /HPF (0-6)
[2017-10-11] MEDS: CLOPIDOGREL 75 MG TABLET PO SCH (21:34)
[2017-10-11] MEDS: LOVASTATIN 20 MG TABLET PO SCH (21:34)
[2017-10-11] MEDS: INSULIN GLARGINE 100 UNIT/ML SUBCUT SCH (21:35)
[2017-10-11] MEDS: GABAPENTIN 600 MG TABLET PO SCH (21:35)
[2017-10-11 22:12] LABS: Hepatitis A Ab IgM Quant 0.25 Index; Hepatitis A Ab IgM Result Negative (Negative); Hepatitis B Core IgM Quant < 0.05 Index; Hepatitis B Core IgM Result Negative (Negative); Hepatitis B Surface Ag Quant < 0.10 Index; Hepatitis B Surface Ag Result Negative (Negative); Hepatitis C Virus Ab Quant 0.02 Index; Hepatitis C Virus Ab Result Negative (Negative)
[2017-10-12] MEDS: ALBUTEROL/IPRATROPIUM 3 ML NEB RESP TX SCH ×4 (00:33→19:37)
[2017-10-12] MEDS: SODIUM CHLORIDE 0.9% 1,000 ML IV SCH ×4 (01:56→23:03)
[2017-10-12] MEDS: SODIUM POLYSTYRENE SULFATE 15 GM/60 ML BOTTLE PO SCH ×2 (05:01→05:08)
[2017-10-12 05:43] LABS: Basophils % 0.1 % (0.0-0.8); Eosinophils # 0.1 10*3/uL (0.0-0.87); Eosinophils % 1.2 % (0.00-10.9); Hematocrit 24.1 VOL% (35.7-47.0); Hemoglobin 8.2 GM/DL (12.0-16.0); Immature Granulocytes % 1.8 %; Immature Granulocytes Absolute 0.19 #; Lymphocytes # 1.9 10*3/uL (1.4-4.0); Lymphocytes % 17.9 % (21.3-54.2); Mean Corpuscular Hemoglobin 30 PG (27-34); Mean Corpuscular Volume 88.3 FL (87-102); Mean Platelet Volume 11.7 FL (9.6-12.0); Monocytes # 0.9 10*3/uL (0.11-0.8); Monocytes % 8.1 % (1.7-12.7); Neutrophils # 7.6 10*3/uL (1.4-7.4); Neutrophils % 70.9 % (38.7-73.9); Platelet Count 394 T/CUMM (130-400); Red Blood Count 2.73 MC/CUMM (3.8-5.5); Red Cell Distribution Width 13.4 % (9.3-17.3); White Blood Count 10.7 T/CUMM (4-12)
[2017-10-12 05:59] LABS: Calcium 7.8 MG/DL (8.5-10.1); Osmolality,Calculated 266.6 MOS/KG (273-304); Potassium 4.7 MMOL/L (3.5-5.1)
[2017-10-12] MEDS: CLINDAMYCIN INJ 600 MG in PREMIX 1 EACH IV SCH ×3 (06:22→21:59)
[2017-10-12] MEDS: INSULIN LISPRO 100 UNIT/ML SUBCUT SCH ×3 (08:43→17:14)
[2017-10-12] MEDS: MEROPENEM 500 MG in SODIUM CHLORIDE 0.9% 100 ML IV SCH ×2 (10:09→21:01)
[2017-10-12] MEDS: ISOSORBIDE MONONITRATE 30 MG TABLET PO SCH (10:10)
[2017-10-12] MEDS: ASCORBIC ACID 500 MG TABLET PO SCH ×2 (10:10→21:00)
[2017-10-12] MEDS: CARVEDILOL 12.5 MG TABLET PO SCH ×2 (10:11→21:00)
[2017-10-12] MEDS: COLLAGENASE OINT 30 GM TUBE TOP SCH (10:11)
[2017-10-12] MEDS: ASPIRIN EC 81 MG TABLET PO SCH (10:11)
[2017-10-12] MEDS: CITALOPRAM 20 MG TABLET PO SCH (10:11)
[2017-10-12] MEDS: SODIUM HYPOCHLORITE 0.25% IRRIG 473 ML BOTTLE TOP SCH (10:11)
[2017-10-12] MEDS: FUROSEMIDE 40 MG/4 ML VIAL IV SCH (16:31)
[2017-10-12] MEDS: INSULIN GLARGINE 100 UNIT/ML SUBCUT SCH (20:14)
[2017-10-12] MEDS: GABAPENTIN 600 MG TABLET PO SCH (21:00)
[2017-10-12] MEDS: CLOPIDOGREL 75 MG TABLET PO SCH (21:00)
[2017-10-12] MEDS: LOVASTATIN 20 MG TABLET PO SCH (21:00)
[2017-10-12] MEDS ORDERED: ONDANSETRON 4 MG/2 ML VIAL ONE (21:11)
[2017-10-12] MEDS: ONDANSETRON 4 MG/2 ML VIAL IV PRN (21:13)
[2017-10-13] MEDS: ALBUTEROL/IPRATROPIUM 3 ML NEB RESP TX SCH ×4 (00:27→19:52)
[2017-10-13 04:15] LABS: Basophils % 0.1 % (0.0-0.8); Eosinophils # 0.2 10*3/uL (0.0-0.87); Eosinophils % 1.5 % (0.00-10.9); Hematocrit 23.7 VOL% (35.7-47.0); Immature Granulocytes Absolute 0.12 #; Lymphocytes # 2.1 10*3/uL (1.4-4.0); Lymphocytes % 18.7 % (21.3-54.2); Mean Corpuscular HGB Conc 33.8 GM/DL (32-36); Mean Corpuscular Hemoglobin 30 PG (27-34); Mean Corpuscular Volume 88.1 FL (87-102); Mean Platelet Volume 11.3 FL (9.6-12.0); Monocytes # 1.1 10*3/uL (0.11-0.8); Monocytes % 9.5 % (1.7-12.7); Neutrophils # 7.9 10*3/uL (1.4-7.4); Neutrophils % 69.2 % (38.7-73.9); Platelet Count 415 T/CUMM (130-400); Red Blood Count 2.69 MC/CUMM (3.8-5.5); Red Cell Distribution Width 13.7 % (9.3-17.3); White Blood Count 11.4 T/CUMM (4-12)
[2017-10-13 04:48] LABS: Calcium 7.5 MG/DL (8.5-10.1); Osmolality,Calculated 274.1 MOS/KG (273-304); Potassium 4.3 MMOL/L (3.5-5.1)
[2017-10-13] MEDS: CLINDAMYCIN INJ 600 MG in PREMIX 1 EACH IV SCH ×3 (05:30→22:52)
[2017-10-13] MEDS: CARVEDILOL 12.5 MG TABLET PO SCH ×2 (08:11→21:15)
[2017-10-13] MEDS: INSULIN LISPRO 100 UNIT/ML SUBCUT SCH ×3 (08:12→16:36)
[2017-10-13] MEDS: ASPIRIN EC 81 MG TABLET PO SCH (08:12)
[2017-10-13] MEDS: CITALOPRAM 20 MG TABLET PO SCH (08:12)
[2017-10-13] MEDS: ASCORBIC ACID 500 MG TABLET PO SCH ×2 (08:12→21:15)
[2017-10-13] MEDS: ISOSORBIDE MONONITRATE 30 MG TABLET PO SCH (08:12)
[2017-10-13] MEDS: FUROSEMIDE 40 MG/4 ML VIAL IV SCH (08:13)
[2017-10-13] MEDS: MEROPENEM 500 MG in SODIUM CHLORIDE 0.9% 100 ML IV SCH ×2 (08:18→21:15)
[2017-10-13] MEDS: COLLAGENASE OINT 30 GM TUBE TOP SCH (08:21)
[2017-10-13] MEDS: SODIUM HYPOCHLORITE 0.25% IRRIG 473 ML BOTTLE TOP SCH (08:21)
[2017-10-13] MEDS: SODIUM CHLORIDE 0.9% 1,000 ML IV SCH (12:49)
[2017-10-13] MEDS: INSULIN GLARGINE 100 UNIT/ML SUBCUT SCH (21:10)
[2017-10-13] MEDS: LOVASTATIN 20 MG TABLET PO SCH (21:14)
[2017-10-13] MEDS: CLOPIDOGREL 75 MG TABLET PO SCH (21:14)
[2017-10-13] MEDS: GABAPENTIN 600 MG TABLET PO SCH (21:15)
[2017-10-14] MEDS: ALBUTEROL/IPRATROPIUM 3 ML NEB RESP TX SCH ×4 (00:56→20:04)
[2017-10-14] MEDS: SODIUM CHLORIDE 0.9% 1,000 ML IV SCH (02:03)
[2017-10-14 05:03] LABS: Basophils % 0.2 % (0.0-0.8); Eosinophils # 0.2 10*3/uL (0.0-0.87); Eosinophils % 1.6 % (0.00-10.9); Hemoglobin 8.6 GM/DL (12.0-16.0); Immature Granulocytes % 1.5 %; Immature Granulocytes Absolute 0.15 #; Mean Corpuscular HGB Conc 34.4 GM/DL (32-36); Mean Corpuscular Hemoglobin 30 PG (27-34); Mean Corpuscular Volume 87.1 FL (87-102); Mean Platelet Volume 11.3 FL (9.6-12.0); Monocytes % 10.1 % (1.7-12.7); Neutrophils # 6.4 10*3/uL (1.4-7.4); Neutrophils % 65.6 % (38.7-73.9); Platelet Count 458 T/CUMM (130-400); Red Blood Count 2.87 MC/CUMM (3.8-5.5); Red Cell Distribution Width 13.6 % (9.3-17.3); White Blood Count 9.7 T/CUMM (4-12)
[2017-10-14 05:21] LABS: Calcium 7.6 MG/DL (8.5-10.1); Osmolality,Calculated 271.4 MOS/KG (273-304); Potassium 4.2 MMOL/L (3.5-5.1)
[2017-10-14] MEDS: CLINDAMYCIN INJ 600 MG in PREMIX 1 EACH IV SCH ×3 (05:36→22:53)
[2017-10-14] MEDS: ASCORBIC ACID 500 MG TABLET PO SCH ×2 (08:19→21:50)
[2017-10-14] MEDS: ISOSORBIDE MONONITRATE 30 MG TABLET PO SCH (08:19)
[2017-10-14] MEDS: CITALOPRAM 20 MG TABLET PO SCH (08:19)
[2017-10-14] MEDS: INSULIN LISPRO 100 UNIT/ML SUBCUT SCH ×3 (08:19→17:10)
[2017-10-14] MEDS: CARVEDILOL 12.5 MG TABLET PO SCH ×2 (08:20→21:50)
[2017-10-14] MEDS: ASPIRIN EC 81 MG TABLET PO SCH (08:20)
[2017-10-14] MEDS: MEROPENEM 500 MG in SODIUM CHLORIDE 0.9% 100 ML IV SCH ×2 (08:26→21:49)
[2017-10-14] MEDS ORDERED: FUROSEMIDE 40 MG/4 ML VIAL IV SCH (09:00)
[2017-10-14] MEDS: COLLAGENASE OINT 30 GM TUBE TOP SCH (09:17)
[2017-10-14] MEDS: SODIUM HYPOCHLORITE 0.25% IRRIG 473 ML BOTTLE TOP SCH (09:17)
[2017-10-14] MEDS: GABAPENTIN 600 MG TABLET PO SCH (21:49)
[2017-10-14] MEDS: CLOPIDOGREL 75 MG TABLET PO SCH (21:49)
[2017-10-14] MEDS: LOVASTATIN 20 MG TABLET PO SCH (21:50)
[2017-10-14] MEDS: INSULIN GLARGINE 100 UNIT/ML SUBCUT SCH (21:50)
[2017-10-15] MEDS: ALBUTEROL/IPRATROPIUM 3 ML NEB RESP TX SCH ×4 (00:15→18:57)
[2017-10-15] MEDS: LABETALOL 100 MG/20 ML VIAL IV PRN ×2 (00:59→16:50)
[2017-10-15] MEDS: hydrALAZINE 20 MG/1 ML VIAL IV PRN (02:23)
[2017-10-15] MEDS: SODIUM CHLORIDE 0.9% 1,000 ML IV SCH ×2 (02:31→21:43)
[2017-10-15 04:59] LABS: Basophils % 0.2 % (0.0-0.8); Eosinophils # 0.1 10*3/uL (0.0-0.87); Eosinophils % 1.2 % (0.00-10.9); Hemoglobin 7.9 GM/DL (12.0-16.0); Immature Granulocytes % 0.9 %; Immature Granulocytes Absolute 0.11 #; Lymphocytes # 2.3 10*3/uL (1.4-4.0); Lymphocytes % 19.5 % (21.3-54.2); Mean Corpuscular HGB Conc 32.9 GM/DL (32-36); Mean Corpuscular Hemoglobin 29 PG (27-34); Mean Corpuscular Volume 89.2 FL (87-102); Mean Platelet Volume 10.7 FL (9.6-12.0); Monocytes # 1.1 10*3/uL (0.11-0.8); Monocytes % 9.3 % (1.7-12.7); Neutrophils % 68.9 % (38.7-73.9); Platelet Count 474 T/CUMM (130-400); Red Blood Count 2.69 MC/CUMM (3.8-5.5); White Blood Count 11.6 T/CUMM (4-12)
[2017-10-15] MEDS: CLINDAMYCIN INJ 600 MG in PREMIX 1 EACH IV SCH ×3 (05:00→23:16)
[2017-10-15 05:06] LABS: Calcium 7.9 MG/DL (8.5-10.1); Osmolality,Calculated 275.8 MOS/KG (273-304); Potassium 4.2 MMOL/L (3.5-5.1)
[2017-10-15] MEDS: ISOSORBIDE MONONITRATE 30 MG TABLET PO SCH (09:27)
[2017-10-15] MEDS: ASCORBIC ACID 500 MG TABLET PO SCH ×2 (09:27→21:32)
[2017-10-15] MEDS: CITALOPRAM 20 MG TABLET PO SCH (09:27)
[2017-10-15] MEDS: CARVEDILOL 12.5 MG TABLET PO SCH ×2 (09:27→21:32)
[2017-10-15] MEDS: INSULIN LISPRO 100 UNIT/ML SUBCUT SCH ×3 (09:27→16:50)
[2017-10-15] MEDS: ASPIRIN EC 81 MG TABLET PO SCH (09:27)
[2017-10-15] MEDS: MEROPENEM 500 MG in SODIUM CHLORIDE 0.9% 100 ML IV SCH ×2 (09:28→21:31)
[2017-10-15] MEDS ORDERED: SODIUM CHLORIDE 0.9% 1,000 ML IV PRN (10:37)
[2017-10-15] MEDS: COLLAGENASE OINT 30 GM TUBE TOP SCH (14:25)
[2017-10-15] MEDS: SODIUM HYPOCHLORITE 0.25% IRRIG 473 ML BOTTLE TOP SCH (14:25)
[2017-10-15 18:22] LABS: Hematocrit 27.4 VOL% (35.7-47.0); Hemoglobin 9.3 GM/DL (12.0-16.0)
[2017-10-15] MEDS: INSULIN GLARGINE 100 UNIT/ML SUBCUT SCH (21:31)
[2017-10-15] MEDS: CLOPIDOGREL 75 MG TABLET PO SCH (21:32)
[2017-10-15] MEDS: LOVASTATIN 20 MG TABLET PO SCH (21:32)
[2017-10-15] MEDS: GABAPENTIN 600 MG TABLET PO SCH (21:33)
[2017-10-15] MEDS: ONDANSETRON 4 MG/2 ML VIAL IV PRN (23:35)
[2017-10-16] MEDS: ALBUTEROL/IPRATROPIUM 3 ML NEB RESP TX SCH ×4 (00:20→19:35)
[2017-10-16 05:26] LABS: Basophils % 0.3 % (0.0-0.8); Eosinophils # 0.2 10*3/uL (0.0-0.87); Eosinophils % 1.9 % (0.00-10.9); Hematocrit 25.3 VOL% (35.7-47.0); Hemoglobin 8.9 GM/DL (12.0-16.0); Immature Granulocytes % 1.1 %; Immature Granulocytes Absolute 0.11 #; Lymphocytes # 2.3 10*3/uL (1.4-4.0); Lymphocytes % 22.9 % (21.3-54.2); Mean Corpuscular HGB Conc 35.2 GM/DL (32-36); Mean Corpuscular Hemoglobin 31 PG (27-34); Mean Corpuscular Volume 87.2 FL (87-102); Monocytes # 0.9 10*3/uL (0.11-0.8); Monocytes % 9.2 % (1.7-12.7); Neutrophils # 6.4 10*3/uL (1.4-7.4); Neutrophils % 64.6 % (38.7-73.9); Platelet Count 482 T/CUMM (130-400); Red Cell Distribution Width 13.9 % (9.3-17.3); White Blood Count 9.9 T/CUMM (4-12)
[2017-10-16] MEDS: CLINDAMYCIN INJ 600 MG in PREMIX 1 EACH IV SCH (06:07)
[2017-10-16] MEDS: ISOSORBIDE MONONITRATE 30 MG TABLET PO SCH (09:29)
[2017-10-16] MEDS: ASPIRIN EC 81 MG TABLET PO SCH (09:29)
[2017-10-16] MEDS: INSULIN LISPRO 100 UNIT/ML SUBCUT SCH ×3 (09:29→16:54)
[2017-10-16] MEDS: MEROPENEM 500 MG in SODIUM CHLORIDE 0.9% 100 ML IV SCH (09:30)
[2017-10-16] MEDS: ASCORBIC ACID 500 MG TABLET PO SCH ×2 (09:30→21:17)
[2017-10-16] MEDS: CARVEDILOL 12.5 MG TABLET PO SCH ×2 (09:30→21:18)
[2017-10-16] MEDS: CITALOPRAM 20 MG TABLET PO SCH (09:30)
[2017-10-16] MEDS: COLLAGENASE OINT 30 GM TUBE TOP SCH (10:23)
[2017-10-16] MEDS: SODIUM CHLORIDE 0.9% 1,000 ML IV SCH (10:23)
[2017-10-16] MEDS: SODIUM HYPOCHLORITE 0.25% IRRIG 473 ML BOTTLE TOP SCH (10:23)
[2017-10-16] MEDS: GLIMEPIRIDE 4 MG TABLET PO SCH ×2 (14:07→16:54)
[2017-10-16] MEDS: DOXYCYCLINE HYCLATE 100 MG CAPSULE PO SCH (21:17)
[2017-10-16] MEDS: CLOPIDOGREL 75 MG TABLET PO SCH (21:17)
[2017-10-16] MEDS: LOVASTATIN 20 MG TABLET PO SCH (21:17)
[2017-10-16] MEDS: GABAPENTIN 600 MG TABLET PO SCH (21:17)
[2017-10-16] MEDS: INSULIN GLARGINE 100 UNIT/ML SUBCUT SCH (21:18)
[2017-10-16] MEDS: hydrALAZINE 20 MG/1 ML VIAL IV PRN (21:18)
[2017-10-17] MEDS: ALBUTEROL/IPRATROPIUM 3 ML NEB RESP TX SCH ×4 (00:41→19:12)
[2017-10-17] MEDS: SODIUM CHLORIDE 0.9% 1,000 ML IV SCH (07:29)
[2017-10-17] MEDS: INSULIN LISPRO 100 UNIT/ML SUBCUT SCH ×3 (07:45→16:37)
[2017-10-17] MEDS: ASCORBIC ACID 500 MG TABLET PO SCH ×2 (08:18→22:35)
[2017-10-17] MEDS: CARVEDILOL 12.5 MG TABLET PO SCH ×2 (08:18→22:35)
[2017-10-17] MEDS: CITALOPRAM 20 MG TABLET PO SCH (08:18)
[2017-10-17] MEDS: GLIMEPIRIDE 4 MG TABLET PO SCH ×2 (08:18→16:38)
[2017-10-17] MEDS: ISOSORBIDE MONONITRATE 30 MG TABLET PO SCH (08:18)
[2017-10-17] MEDS: ASPIRIN EC 81 MG TABLET PO SCH (08:18)
[2017-10-17] MEDS: DOXYCYCLINE HYCLATE 100 MG CAPSULE PO SCH ×2 (08:18→22:34)
[2017-10-17] MEDS: SODIUM HYPOCHLORITE 0.25% IRRIG 473 ML BOTTLE TOP SCH (08:19)
[2017-10-17] MEDS: COLLAGENASE OINT 30 GM TUBE TOP SCH (08:19)
[2017-10-17 10:44] LABS: Calcium 8.2 MG/DL (8.5-10.1)
[2017-10-17 10:45] LABS: Osmolality,Calculated 281.1 MOS/KG (273-304); Potassium 4.6 MMOL/L (3.5-5.1)
[2017-10-17] MEDS: INSULIN GLARGINE 100 UNIT/ML SUBCUT SCH (22:32)
[2017-10-17] MEDS: CLOPIDOGREL 75 MG TABLET PO SCH (22:35)
[2017-10-17] MEDS: LOVASTATIN 20 MG TABLET PO SCH (22:35)
[2017-10-17] MEDS: GABAPENTIN 600 MG TABLET PO SCH (22:35)
[2017-10-18] MEDS: ALBUTEROL/IPRATROPIUM 3 ML NEB RESP TX SCH ×4 (00:33→19:16)
[2017-10-18] MEDS: hydrALAZINE 25 MG TABLET PO SCH ×4 (01:26→22:16)
[2017-10-18] MEDS: COLLAGENASE OINT 30 GM TUBE TOP SCH (08:21)
[2017-10-18] MEDS: CARVEDILOL 12.5 MG TABLET PO SCH ×2 (08:21→22:16)
[2017-10-18] MEDS: DOXYCYCLINE HYCLATE 100 MG CAPSULE PO SCH ×2 (08:21→22:17)
[2017-10-18] MEDS: CITALOPRAM 20 MG TABLET PO SCH (08:21)
[2017-10-18] MEDS: ASPIRIN EC 81 MG TABLET PO SCH (08:21)
[2017-10-18] MEDS: ASCORBIC ACID 500 MG TABLET PO SCH ×2 (08:21→22:17)
[2017-10-18] MEDS: SODIUM HYPOCHLORITE 0.25% IRRIG 473 ML BOTTLE TOP SCH (08:21)
[2017-10-18] MEDS: INSULIN LISPRO 100 UNIT/ML SUBCUT SCH ×3 (08:22→17:13)
[2017-10-18] MEDS: GLIMEPIRIDE 4 MG TABLET PO SCH (08:23)
[2017-10-18] MEDS: ISOSORBIDE MONONITRATE 30 MG TABLET PO SCH (08:23)
[2017-10-18 09:29] LABS: Apearance,Urine Cloudy (Clear); Bilirubin,Urine Negative (Negative); Blood, Urine Large mg/dL (Negative); Glucose,Urine (UA) Negative (Negative); Ketones,Urine Negative (Negative); Nitrite,Urine Negative (Negative); Protein,Urine 100 MG/DL; RBC,Urine 1301 /HPF (0-4); Urine Color Amber (Yellow); Urine Urobilinogen 0.2 EU/DL (0.2-1.0); WBC,Urine 265 /HPF (0-6)
[2017-10-18 12:20] LABS: Basophils % 0.2 % (0.0-0.8); Eosinophils # 0.2 10*3/uL (0.0-0.87); Eosinophils % 1.5 % (0.00-10.9); Hematocrit 23.7 VOL% (35.7-47.0); Immature Granulocytes % 0.5 %; Immature Granulocytes Absolute 0.06 #; Lymphocytes # 1.7 10*3/uL (1.4-4.0); Lymphocytes % 14.6 % (21.3-54.2); Mean Corpuscular HGB Conc 33.8 GM/DL (32-36); Mean Corpuscular Hemoglobin 30 PG (27-34); Mean Corpuscular Volume 89.4 FL (87-102); Mean Platelet Volume 9.6 FL (9.6-12.0); Monocytes # 0.7 10*3/uL (0.11-0.8); Monocytes % 6.3 % (1.7-12.7); Neutrophils # 8.9 10*3/uL (1.4-7.4); Neutrophils % 76.9 % (38.7-73.9); Platelet Count 507 T/CUMM (130-400); Red Blood Count 2.65 MC/CUMM (3.8-5.5); Red Cell Distribution Width 14.4 % (9.3-17.3); White Blood Count 11.5 T/CUMM (4-12)
[2017-10-18] MEDS: LOVASTATIN 20 MG TABLET PO SCH (22:16)
[2017-10-18] MEDS: CLOPIDOGREL 75 MG TABLET PO SCH (22:16)
[2017-10-18] MEDS: GABAPENTIN 300 MG CAPSULE PO SCH (22:17)
[2017-10-18] MEDS: INSULIN GLARGINE 100 UNIT/ML SUBCUT SCH (22:28)
[2017-10-19] MEDS: ALBUTEROL/IPRATROPIUM 3 ML NEB RESP TX SCH ×4 (02:06→19:23)
[2017-10-19] MEDS: INSULIN LISPRO 100 UNIT/ML SUBCUT SCH ×3 (08:55→16:50)
[2017-10-19] MEDS: CITALOPRAM 20 MG TABLET PO SCH (09:39)
[2017-10-19] MEDS: GLIMEPIRIDE 4 MG TABLET PO SCH (09:39)
[2017-10-19] MEDS: hydrALAZINE 25 MG TABLET PO SCH ×3 (09:40→22:53)
[2017-10-19] MEDS: CARVEDILOL 12.5 MG TABLET PO SCH ×2 (09:40→22:54)
[2017-10-19] MEDS: DOXYCYCLINE HYCLATE 100 MG CAPSULE PO SCH ×2 (09:40→22:55)
[2017-10-19] MEDS: ISOSORBIDE MONONITRATE 30 MG TABLET PO SCH (09:41)
[2017-10-19] MEDS: ASCORBIC ACID 500 MG TABLET PO SCH ×2 (09:41→22:54)
[2017-10-19] MEDS: ASPIRIN EC 81 MG TABLET PO SCH (09:41)
[2017-10-19] MEDS: ONDANSETRON 4 MG TABLET PO PRN (09:49)
[2017-10-19] MEDS: COLLAGENASE OINT 30 GM TUBE TOP SCH (11:50)
[2017-10-19] MEDS: NYSTATIN 500,000 UNIT/5 ML UDCUP SWISH/SWAL SCH ×4 (11:50→22:53)
[2017-10-19] MEDS: CLINDAMYCIN 300 MG CAPSULE PO SCH ×4 (11:50→22:54)
[2017-10-19] MEDS: SODIUM HYPOCHLORITE 0.25% IRRIG 473 ML BOTTLE TOP SCH (11:50)
[2017-10-19] MEDS: LOVASTATIN 20 MG TABLET PO SCH (22:54)
[2017-10-19] MEDS: GABAPENTIN 300 MG CAPSULE PO SCH (22:54)
[2017-10-19] MEDS: CLOPIDOGREL 75 MG TABLET PO SCH (22:55)
[2017-10-19] MEDS: INSULIN GLARGINE 100 UNIT/ML SUBCUT SCH (23:05)
[2017-10-20] MEDS: ALBUTEROL/IPRATROPIUM 3 ML NEB RESP TX SCH ×3 (00:26→14:05)
[2017-10-20 04:55] LABS: Calcium 8.9 MG/DL (8.5-10.1); Osmolality,Calculated 290.4 MOS/KG (273-304); Potassium 4.7 MMOL/L (3.5-5.1)
[2017-10-20] MEDS: INSULIN LISPRO 100 UNIT/ML SUBCUT SCH ×2 (07:59→12:40)
[2017-10-20] MEDS: ASPIRIN EC 81 MG TABLET PO SCH (09:26)
[2017-10-20] MEDS: hydrALAZINE 25 MG TABLET PO SCH (09:27)
[2017-10-20] MEDS: GLIMEPIRIDE 4 MG TABLET PO SCH (09:27)
[2017-10-20] MEDS: CARVEDILOL 12.5 MG TABLET PO SCH (09:27)
[2017-10-20] MEDS: ISOSORBIDE MONONITRATE 30 MG TABLET PO SCH (09:27)
[2017-10-20] MEDS: ASCORBIC ACID 500 MG TABLET PO SCH (09:27)
[2017-10-20] MEDS: DOXYCYCLINE HYCLATE 100 MG CAPSULE PO SCH (09:27)
[2017-10-20] MEDS: CLINDAMYCIN 300 MG CAPSULE PO SCH ×2 (09:27→12:40)
[2017-10-20] MEDS: NYSTATIN 500,000 UNIT/5 ML UDCUP SWISH/SWAL SCH ×2 (09:27→12:40)
[2017-10-20] MEDS: CITALOPRAM 20 MG TABLET PO SCH (09:27)
[2017-10-20] MEDS: COLLAGENASE OINT 30 GM TUBE TOP SCH (12:40)
[2017-10-20] MEDS: SODIUM HYPOCHLORITE 0.25% IRRIG 473 ML BOTTLE TOP SCH (12:40)
[2017-10-20 13:10] VITALS: BP 140/60
== END 2017-10-20 14:56 | disposition home health service (06) | DRG 420 ==
LOC: N.ED 16:21 → SUATTDRO 20:25 → N.EDINP 20:25 → N.TELEN 21:36
PROVIDERS: ADMIT Internal Medicine; ATTEND Internal Medicine

== ENCOUNTER 2018-01-09 13:33 | Inpatient (IN) ==
[2018-01-09] MEDS ORDERED: SODIUM CHLORIDE 0.9% 500 ML IV STA (14:08)
[2018-01-09] MEDS ORDERED: ONDANSETRON 4 MG/2 ML VIAL IV STA ×2 (14:08→17:05)
[2018-01-09 15:33] LABS: Apearance,Urine CLEAR (Clear); Bacteria,Urine Occasional /HPF (Few); Bilirubin,Urine Negative (Negative); Blood, Urine Negative (Negative); Glucose,Urine (UA) 150 mg/dL (Negative); Hyaline Casts,Urine 29 /LPF (0-3); Ketones,Urine 5 mg/dL (Negative); Mucus,Urine Occasional /LPF (Occasional); Nitrite,Urine Negative (Negative); Protein,Urine >=500 MG/DL; RBC,Urine 4 /HPF (0-4); Squamous Epithelial Cell,Urine Occasional /HPF (0-10); Urine Color Yellow (Yellow); Urine Specific Gravity 1.014 (1.001-1.035); Urine Urobilinogen < 2.0 EU/DL (0.2-1.0); WBC,Urine 4 /HPF (0-6)
[2018-01-09 15:43] LABS: Basophils % 0.3 % (0.0-0.8); Eosinophils % 0.5 % (0.00-10.9); Hematocrit 27.2 VOL% (35.7-47.0); Hemoglobin 8.5 GM/DL (12.0-16.0); Immature Granulocytes % 0.5 %; Immature Granulocytes Absolute 0.03 #; Lymphocytes # 1.2 10*3/uL (1.4-4.0); Lymphocytes % 18.9 % (21.3-54.2); Mean Corpuscular HGB Conc 31.3 GM/DL (32-36); Mean Corpuscular Hemoglobin 30 PG (27-34); Mean Corpuscular Volume 94.4 FL (87-102); Mean Platelet Volume 10.8 FL (9.6-12.0); Monocytes # 0.6 10*3/uL (0.11-0.8); Monocytes % 10.1 % (1.7-12.7); Neutrophils # 4.3 10*3/uL (1.4-7.4); Neutrophils % 69.7 % (38.7-73.9); Platelet Count 344 T/CUMM (130-400); Red Blood Count 2.88 MC/CUMM (3.8-5.5); Red Cell Distribution Width 20.2 % (9.3-17.3); White Blood Count 6.1 T/CUMM (4-12)
[2018-01-09] MEDS ORDERED: hydrALAZINE 20 MG/1 ML VIAL IV STA ×3 (16:04→20:35)
[2018-01-09 16:07] LABS: Albumin 2.6 G/DL (3.4-5.0); Bilirubin,Total 0.7 MG/DL (0.2-1.0); Calcium 8.8 MG/DL (8.5-10.1); Osmolality,Calculated 296.7 MOS/KG (273-304); Potassium 3.8 MMOL/L (3.5-5.1); Total Protein 7.2 G/DL (6.4-8.3)
[2018-01-09] MEDS ORDERED: SODIUM CHLORIDE 0.9% 1,000 ML IV STA (16:23)
[2018-01-09] MEDS ORDERED: cloNIDine 0.1 MG TABLET PO STA (17:05)
[2018-01-09] MEDS ORDERED: PROMETHAZINE 25 MG/1 ML VIAL IM STA (17:23)
[2018-01-09] MEDS ORDERED: NITROGLYCERIN SL 0.4 MG TABLET SL PRN (22:00)
[2018-01-09] MEDS ORDERED: DEXTROSE 50% 25 GM/50 ML VIAL IV PRN (22:00)
[2018-01-09] MEDS ORDERED: ALBUTEROL 2.5 MG/3 ML NEB RESP TX PRN (22:00)
[2018-01-09] MEDS ORDERED: GLUCAGON 1 MG VIAL IM PRN (22:00)
[2018-01-09] MEDS ORDERED: ALBUTEROL/IPRATROPIUM 3 ML NEB RESP TX PRN (22:00)
[2018-01-09] MEDS ORDERED: ACETAMINOPHEN 325 MG TABLET PO PRN (22:00)
[2018-01-09] MEDS ORDERED: SODIUM CHLORIDE 0.9% 1,000 ML IV SCH (22:00)
[2018-01-09] MEDS ORDERED: ONDANSETRON 4 MG/2 ML VIAL IV PRN (22:00)
[2018-01-09] MEDS: ASCORBIC ACID 500 MG TABLET PO SCH (22:51)
[2018-01-09] MEDS: CARVEDILOL 25 MG TABLET PO SCH (22:51)
[2018-01-09] MEDS: cloNIDine 0.1 MG TABLET PO PRN (22:51)
[2018-01-10 01:04] LABS: Basophils % 0.3 % (0.0-0.8); Eosinophils # 0.1 10*3/uL (0.0-0.87); Eosinophils % 1.3 % (0.00-10.9); Hematocrit 25.3 VOL% (35.7-47.0); Hemoglobin 7.7 GM/DL (12.0-16.0); Immature Granulocytes % 0.3 %; Immature Granulocytes Absolute 0.02 #; Lymphocytes % 33.2 % (21.3-54.2); Mean Corpuscular HGB Conc 30.4 GM/DL (32-36); Mean Corpuscular Hemoglobin 29 PG (27-34); Mean Corpuscular Volume 94.1 FL (87-102); Mean Platelet Volume 10.7 FL (9.6-12.0); Monocytes # 0.8 10*3/uL (0.11-0.8); Monocytes % 13.2 % (1.7-12.7); Neutrophils # 3.1 10*3/uL (1.4-7.4); Neutrophils % 51.7 % (38.7-73.9); Platelet Count 322 T/CUMM (130-400); Red Blood Count 2.69 MC/CUMM (3.8-5.5); Red Cell Distribution Width 20.4 % (9.3-17.3); White Blood Count 6.1 T/CUMM (4-12)
[2018-01-10 01:30] LABS: Albumin 2.2 G/DL (3.4-5.0); Bilirubin,Total 0.5 MG/DL (0.2-1.0); Calcium 8.2 MG/DL (8.5-10.1); Osmolality,Calculated 298.3 MOS/KG (273-304); Potassium 3.6 MMOL/L (3.5-5.1); Risk Ratio 2.37; Total Protein 6.6 G/DL (6.4-8.3); VLDL CHOLESTEROL 15.8 MG/DL
[2018-01-10] MEDS: cloNIDine 0.1 MG TABLET PO PRN (05:53)
[2018-01-10] MEDS ORDERED: niCARdipine 25 MG/10 ML VIAL IV ONE (07:56)
[2018-01-10] MEDS ORDERED: niCARdipine INJ 25 MG in SODIUM CHLORIDE 0.9% 240 ML IV PRN (07:56)
[2018-01-10] MEDS: ASCORBIC ACID 500 MG TABLET PO SCH ×2 (09:50→20:27)
[2018-01-10] MEDS: CLOPIDOGREL 75 MG TABLET PO SCH (09:50)
[2018-01-10] MEDS: CARVEDILOL 25 MG TABLET PO SCH ×2 (09:50→20:27)
[2018-01-10] MEDS: METOCLOPRAMIDE 5 MG TABLET PO SCH ×3 (09:50→16:57)
[2018-01-10] MEDS: CITALOPRAM 20 MG TABLET PO SCH (09:50)
[2018-01-10] MEDS: NYSTATIN 500,000 UNIT/5 ML UDCUP SWISH/SWAL SCH ×4 (09:51→20:27)
[2018-01-10] MEDS: cloNIDine 0.1 MG TABLET PO SCH ×3 (09:51→20:28)
[2018-01-10] MEDS: ASPIRIN EC 81 MG TABLET PO SCH (09:51)
[2018-01-10] MEDS: SODIUM HYPOCHLORITE 0.25% IRRIG 473 ML BOTTLE TOP SCH (09:51)
[2018-01-10] MEDS: ENOXAPARIN 40 MG/0.4 ML SYRINGE SUBCUT SCH (09:52)
[2018-01-10] MEDS: INSULIN LISPRO 100 UNIT/ML SUBCUT SCH ×4 (09:53→22:19)
[2018-01-10] MEDS: ISOSORBIDE MONONITRATE 60 MG TABLET PO SCH (09:53)
[2018-01-10] MEDS: COLLAGENASE OINT 30 GM TUBE TOP SCH (09:54)
[2018-01-10] MEDS ORDERED: FUROSEMIDE 40 MG/4 ML VIAL IV ONE (15:06)
[2018-01-10 17:24] LABS: Apearance,Urine CLOUDY (Clear); Bacteria,Urine Many /HPF (Few); Bilirubin,Urine Negative (Negative); Blood, Urine Negative (Negative); Glucose,Urine (UA) Negative (Negative); Hyaline Casts,Urine 4 /LPF (0-3); Ketones,Urine 5 mg/dL (Negative); Mucus,Urine Occasional /LPF (Occasional); Nitrite,Urine Negative (Negative); Protein,Urine >=500 MG/DL; Squamous Epithelial Cell,Urine Occasional /HPF (0-10); Urine Color Amber (Yellow); Urine Specific Gravity 1.014 (1.001-1.035); Urine Urobilinogen < 2.0 EU/DL (0.2-1.0); WBC,Urine 3 /HPF (0-6)
[2018-01-10] MEDS: LOVASTATIN 20 MG TABLET PO SCH (20:27)
[2018-01-10] MEDS: GABAPENTIN 300 MG CAPSULE PO SCH (20:27)
[2018-01-11 03:47] LABS: Basophils % 0.6 % (0.0-0.8); Eosinophils # 0.2 10*3/uL (0.0-0.87); Eosinophils % 3.1 % (0.00-10.9); Hematocrit 24.8 VOL% (35.7-47.0); Hemoglobin 7.7 GM/DL (12.0-16.0); Immature Granulocytes % 0.2 %; Immature Granulocytes Absolute 0.01 #; Lymphocytes # 1.9 10*3/uL (1.4-4.0); Lymphocytes % 37.3 % (21.3-54.2); Mean Corpuscular Hemoglobin 29 PG (27-34); Mean Corpuscular Volume 94.7 FL (87-102); Mean Platelet Volume 11.2 FL (9.6-12.0); Monocytes # 0.8 10*3/uL (0.11-0.8); Monocytes % 14.9 % (1.7-12.7); Neutrophils # 2.3 10*3/uL (1.4-7.4); Neutrophils % 43.9 % (38.7-73.9); Platelet Count 321 T/CUMM (130-400); Red Blood Count 2.62 MC/CUMM (3.8-5.5); Red Cell Distribution Width 20.3 % (9.3-17.3); White Blood Count 5.2 T/CUMM (4-12)
[2018-01-11 03:59] LABS: Calcium 8.3 MG/DL (8.5-10.1); Osmolality,Calculated 293.4 MOS/KG (273-304); Potassium 3.2 MMOL/L (3.5-5.1)
[2018-01-11] MEDS: CARVEDILOL 25 MG TABLET PO SCH ×2 (08:16→20:44)
[2018-01-11] MEDS: CITALOPRAM 20 MG TABLET PO SCH (08:16)
[2018-01-11] MEDS: NYSTATIN 500,000 UNIT/5 ML UDCUP SWISH/SWAL SCH ×4 (08:16→20:42)
[2018-01-11] MEDS: ASPIRIN EC 81 MG TABLET PO SCH (08:16)
[2018-01-11] MEDS: ASCORBIC ACID 500 MG TABLET PO SCH ×2 (08:16→20:43)
[2018-01-11] MEDS: cloNIDine 0.1 MG TABLET PO SCH ×3 (08:16→20:44)
[2018-01-11] MEDS: INSULIN LISPRO 100 UNIT/ML SUBCUT SCH ×4 (08:17→20:43)
[2018-01-11] MEDS: METOCLOPRAMIDE 5 MG TABLET PO SCH ×3 (08:17→17:09)
[2018-01-11] MEDS: CLOPIDOGREL 75 MG TABLET PO SCH (08:17)
[2018-01-11] MEDS: ISOSORBIDE MONONITRATE 60 MG TABLET PO SCH (08:17)
[2018-01-11] MEDS: ENOXAPARIN 40 MG/0.4 ML SYRINGE SUBCUT SCH (08:18)
[2018-01-11] MEDS: SODIUM HYPOCHLORITE 0.25% IRRIG 473 ML BOTTLE TOP SCH (08:18)
[2018-01-11] MEDS: COLLAGENASE OINT 30 GM TUBE TOP SCH (08:26)
[2018-01-11 10:00] LABS: % Iron Saturation 19.9 % (18-50)
[2018-01-11] MEDS: POTASSIUM CHLORIDE 20 MEQ TABLET PO SCH ×4 (10:01→20:44)
[2018-01-11 11:04] LABS: Protein/Creatinine Ratio,Urine 8.4 RATIO
[2018-01-11] MEDS: LOVASTATIN 20 MG TABLET PO SCH (20:44)
[2018-01-11] MEDS: GABAPENTIN 300 MG CAPSULE PO SCH (20:44)
[2018-01-12 04:22] LABS: Calcium 8.1 MG/DL (8.5-10.1); Osmolality,Calculated 290.6 MOS/KG (273-304); Potassium 4.3 MMOL/L (3.5-5.1)
[2018-01-12] MEDS: INSULIN LISPRO 100 UNIT/ML SUBCUT SCH ×4 (07:38→21:35)
[2018-01-12] MEDS: CITALOPRAM 20 MG TABLET PO SCH (08:20)
[2018-01-12] MEDS: NYSTATIN 500,000 UNIT/5 ML UDCUP SWISH/SWAL SCH ×4 (08:20→21:34)
[2018-01-12] MEDS: SODIUM HYPOCHLORITE 0.25% IRRIG 473 ML BOTTLE TOP SCH (08:20)
[2018-01-12] MEDS: ISOSORBIDE MONONITRATE 60 MG TABLET PO SCH (08:20)
[2018-01-12] MEDS: METOCLOPRAMIDE 5 MG TABLET PO SCH ×3 (08:20→17:48)
[2018-01-12] MEDS: CLOPIDOGREL 75 MG TABLET PO SCH (08:20)
[2018-01-12] MEDS: ASCORBIC ACID 500 MG TABLET PO SCH ×2 (08:20→21:34)
[2018-01-12] MEDS: COLLAGENASE OINT 30 GM TUBE TOP SCH (08:20)
[2018-01-12] MEDS: ENOXAPARIN 40 MG/0.4 ML SYRINGE SUBCUT SCH (08:21)
[2018-01-12] MEDS: ASPIRIN EC 81 MG TABLET PO SCH (08:21)
[2018-01-12] MEDS: CARVEDILOL 25 MG TABLET PO SCH ×2 (08:21→21:35)
[2018-01-12] MEDS: cloNIDine 0.1 MG TABLET PO SCH ×3 (08:21→21:35)
[2018-01-12] MEDS: GABAPENTIN 300 MG CAPSULE PO SCH (21:35)
[2018-01-12] MEDS: LOVASTATIN 20 MG TABLET PO SCH (22:02)
[2018-01-13] MEDS: INSULIN LISPRO 100 UNIT/ML SUBCUT SCH ×4 (09:30→21:14)
[2018-01-13] MEDS: ISOSORBIDE MONONITRATE 60 MG TABLET PO SCH (09:30)
[2018-01-13] MEDS: METOCLOPRAMIDE 5 MG TABLET PO SCH ×3 (09:30→18:30)
[2018-01-13] MEDS: ASCORBIC ACID 500 MG TABLET PO SCH ×2 (09:31→21:12)
[2018-01-13] MEDS: CLOPIDOGREL 75 MG TABLET PO SCH (09:31)
[2018-01-13] MEDS: ASPIRIN EC 81 MG TABLET PO SCH (09:31)
[2018-01-13] MEDS: NYSTATIN 500,000 UNIT/5 ML UDCUP SWISH/SWAL SCH ×4 (09:31→21:12)
[2018-01-13] MEDS: cloNIDine 0.1 MG TABLET PO SCH ×3 (09:31→21:12)
[2018-01-13] MEDS: ENOXAPARIN 40 MG/0.4 ML SYRINGE SUBCUT SCH (09:32)
[2018-01-13] MEDS: CARVEDILOL 25 MG TABLET PO SCH ×2 (09:32→21:12)
[2018-01-13] MEDS: CITALOPRAM 20 MG TABLET PO SCH (09:33)
[2018-01-13] MEDS ORDERED: GLUCAGON 1 MG VIAL IM PRN (15:05)
[2018-01-13] MEDS ORDERED: DEXTROSE 50% 25 GM/50 ML VIAL IV PRN (15:05)
[2018-01-13] MEDS: SODIUM HYPOCHLORITE 0.25% IRRIG 473 ML BOTTLE TOP SCH (17:10)
[2018-01-13] MEDS: COLLAGENASE OINT 30 GM TUBE TOP SCH (17:10)
[2018-01-13] MEDS: LOVASTATIN 20 MG TABLET PO SCH (21:11)
[2018-01-13] MEDS: GABAPENTIN 300 MG CAPSULE PO SCH (21:12)
[2018-01-13] MEDS: INSULIN GLARGINE 100 UNIT/ML SUBCUT SCH (21:13)
[2018-01-14 03:14] LABS: Basophils % 0.4 % (0.0-0.8); Eosinophils # 0.2 10*3/uL (0.0-0.87); Eosinophils % 3.7 % (0.00-10.9); Hematocrit 26.1 VOL% (35.7-47.0); Hemoglobin 8.2 GM/DL (12.0-16.0); Immature Granulocytes % 0.4 %; Immature Granulocytes Absolute 0.02 #; Lymphocytes # 1.9 10*3/uL (1.4-4.0); Lymphocytes % 36.2 % (21.3-54.2); Mean Corpuscular HGB Conc 31.4 GM/DL (32-36); Mean Corpuscular Hemoglobin 30 PG (27-34); Mean Corpuscular Volume 96.3 FL (87-102); Mean Platelet Volume 11.1 FL (9.6-12.0); Monocytes # 0.6 10*3/uL (0.11-0.8); Monocytes % 11.9 % (1.7-12.7); Neutrophils # 2.5 10*3/uL (1.4-7.4); Neutrophils % 47.4 % (38.7-73.9); Platelet Count 314 T/CUMM (130-400); Red Blood Count 2.71 MC/CUMM (3.8-5.5); Red Cell Distribution Width 21.1 % (9.3-17.3); White Blood Count 5.2 T/CUMM (4-12)
[2018-01-14 03:29] LABS: % Iron Saturation 17.6 % (18-50); Ferritin 137.1 ng/ml (8-252); Osmolality,Calculated 293.8 MOS/KG (273-304); Potassium 3.9 MMOL/L (3.5-5.1)
[2018-01-14 03:39] LABS: Folate 12.1 NG/ML (5.4-24.0); Vitamin B12 1082 PG/ML (211-911)
[2018-01-14 04:33] LABS: Sedimentation Rate-Westergren 78 MM/HR (0-30)
[2018-01-14] MEDS: ISOSORBIDE MONONITRATE 60 MG TABLET PO SCH (09:14)
[2018-01-14] MEDS: ASPIRIN EC 81 MG TABLET PO SCH (09:15)
[2018-01-14] MEDS: CARVEDILOL 25 MG TABLET PO SCH ×2 (09:15→21:36)
[2018-01-14] MEDS: INSULIN LISPRO 100 UNIT/ML SUBCUT SCH ×4 (09:15→21:36)
[2018-01-14] MEDS: ASCORBIC ACID 500 MG TABLET PO SCH ×2 (09:15→21:36)
[2018-01-14] MEDS: NYSTATIN 500,000 UNIT/5 ML UDCUP SWISH/SWAL SCH ×4 (09:15→21:37)
[2018-01-14] MEDS: CITALOPRAM 20 MG TABLET PO SCH (09:15)
[2018-01-14] MEDS: cloNIDine 0.1 MG TABLET PO SCH (09:15)
[2018-01-14] MEDS: METOCLOPRAMIDE 5 MG TABLET PO SCH ×3 (09:15→17:26)
[2018-01-14] MEDS: CLOPIDOGREL 75 MG TABLET PO SCH (09:15)
[2018-01-14] MEDS: ENOXAPARIN 40 MG/0.4 ML SYRINGE SUBCUT SCH (09:16)
[2018-01-14] MEDS: SODIUM HYPOCHLORITE 0.25% IRRIG 473 ML BOTTLE TOP SCH (10:21)
[2018-01-14] MEDS: COLLAGENASE OINT 30 GM TUBE TOP SCH (10:21)
[2018-01-14 11:53] LABS: Hemoglobin A1 (Alkaline) 97.4 % (96.5-98.5); Hemoglobin A2 (Alkaline) 2.6 % (1.5-3.5)
[2018-01-14] MEDS ORDERED: ERGOCALCIFEROL 50,000 UNIT CAPSULE PO SCH (13:00)
[2018-01-14] MEDS: DOXAZOSIN 1 MG TABLET PO SCH ×2 (17:26→21:36)
[2018-01-14] MEDS: INSULIN GLARGINE 100 UNIT/ML SUBCUT SCH (21:36)
[2018-01-14] MEDS: GABAPENTIN 300 MG CAPSULE PO SCH (21:36)
[2018-01-14] MEDS: LOVASTATIN 20 MG TABLET PO SCH (21:53)
[2018-01-15 04:10] LABS: Basophils % 0.4 % (0.0-0.8); Eosinophils # 0.1 10*3/uL (0.0-0.87); Eosinophils % 1.7 % (0.00-10.9); Hematocrit 25.3 VOL% (35.7-47.0); Hemoglobin 7.9 GM/DL (12.0-16.0); Immature Granulocytes % 0.2 %; Immature Granulocytes Absolute 0.01 #; Lymphocytes # 1.5 10*3/uL (1.4-4.0); Lymphocytes % 28.2 % (21.3-54.2); Mean Corpuscular HGB Conc 31.2 GM/DL (32-36); Mean Corpuscular Hemoglobin 30 PG (27-34); Mean Corpuscular Volume 96.2 FL (87-102); Mean Platelet Volume 11.2 FL (9.6-12.0); Monocytes # 0.6 10*3/uL (0.11-0.8); Monocytes % 12.1 % (1.7-12.7); Neutrophils % 57.4 % (38.7-73.9); Platelet Count 283 T/CUMM (130-400); Red Blood Count 2.63 MC/CUMM (3.8-5.5); Red Cell Distribution Width 21.2 % (9.3-17.3); White Blood Count 5.3 T/CUMM (4-12)
[2018-01-15 04:37] LABS: Calcium 8.1 MG/DL (8.5-10.1); Potassium 3.7 MMOL/L (3.5-5.1)
[2018-01-15] MEDS: INSULIN LISPRO 100 UNIT/ML SUBCUT SCH ×4 (08:19→22:03)
[2018-01-15] MEDS: METOCLOPRAMIDE 5 MG TABLET PO SCH ×3 (08:20→17:12)
[2018-01-15] MEDS: DOXAZOSIN 1 MG TABLET PO SCH ×3 (08:21→22:01)
[2018-01-15] MEDS: ASPIRIN EC 81 MG TABLET PO SCH (08:21)
[2018-01-15] MEDS: CITALOPRAM 20 MG TABLET PO SCH (08:21)
[2018-01-15] MEDS: CARVEDILOL 25 MG TABLET PO SCH ×2 (08:22→22:03)
[2018-01-15] MEDS: ENOXAPARIN 40 MG/0.4 ML SYRINGE SUBCUT SCH (08:22)
[2018-01-15] MEDS: ISOSORBIDE MONONITRATE 60 MG TABLET PO SCH (08:22)
[2018-01-15] MEDS: NYSTATIN 500,000 UNIT/5 ML UDCUP SWISH/SWAL SCH ×4 (08:22→22:03)
[2018-01-15] MEDS: ASCORBIC ACID 500 MG TABLET PO SCH ×2 (08:23→22:03)
[2018-01-15] MEDS: CLOPIDOGREL 75 MG TABLET PO SCH (08:23)
[2018-01-15] MEDS: SODIUM HYPOCHLORITE 0.25% IRRIG 473 ML BOTTLE TOP SCH (11:28)
[2018-01-15] MEDS: COLLAGENASE OINT 30 GM TUBE TOP SCH (11:29)
[2018-01-15] MEDS ORDERED: MAGNESIUM CITRATE 300 ML BOTTLE PO ONE (12:19)
[2018-01-15] MEDS: DOCUSATE SODIUM 100 MG CAPSULE PO SCH ×2 (12:29→22:02)
[2018-01-15] MEDS: POLYETHYLENE GLYCOL POWDER 17 GM PACK PO SCH ×2 (12:29→22:01)
[2018-01-15] MEDS: LACTULOSE 20 GM/30 ML UDCUP PO SCH ×2 (14:58→22:01)
[2018-01-15] MEDS: INSULIN GLARGINE 100 UNIT/ML SUBCUT SCH (22:01)
[2018-01-15] MEDS: GABAPENTIN 300 MG CAPSULE PO SCH (22:01)
[2018-01-15] MEDS: LOVASTATIN 20 MG TABLET PO SCH (22:02)
[2018-01-16 04:07] LABS: Basophils % 0.3 % (0.0-0.8); Eosinophils # 0.1 10*3/uL (0.0-0.87); Eosinophils % 3.6 % (0.00-10.9); Hematocrit 25.4 VOL% (35.7-47.0); Hemoglobin 7.8 GM/DL (12.0-16.0); Immature Granulocytes % 0.3 %; Immature Granulocytes Absolute 0.01 #; Lymphocytes # 1.5 10*3/uL (1.4-4.0); Lymphocytes % 37.4 % (21.3-54.2); Mean Corpuscular HGB Conc 30.7 GM/DL (32-36); Mean Corpuscular Hemoglobin 30 PG (27-34); Mean Corpuscular Volume 96.9 FL (87-102); Mean Platelet Volume 11.3 FL (9.6-12.0); Monocytes # 0.7 10*3/uL (0.11-0.8); Monocytes % 17.3 % (1.7-12.7); Neutrophils # 1.6 10*3/uL (1.4-7.4); Neutrophils % 41.1 % (38.7-73.9); Platelet Count 256 T/CUMM (130-400); Red Blood Count 2.62 MC/CUMM (3.8-5.5); Red Cell Distribution Width 21.2 % (9.3-17.3); White Blood Count 3.9 T/CUMM (4-12)
[2018-01-16 04:34] LABS: Calcium 8.2 MG/DL (8.5-10.1); Osmolality,Calculated 287.1 MOS/KG (273-304); Potassium 4.1 MMOL/L (3.5-5.1)
[2018-01-16 04:52] LABS: Eosinophils 3 % (0-10); Hypochromasia 1+; Lymphocytes 31 % (20-55); Ovalocytes Slight; Platelet Estimate Adequate; Segmented Neutrophils 44 % (50-85); Total Cells Counted 100
[2018-01-16] MEDS: ISOSORBIDE MONONITRATE 60 MG TABLET PO SCH (09:12)
[2018-01-16] MEDS: DOXAZOSIN 1 MG TABLET PO SCH (09:12)
[2018-01-16] MEDS: CLOPIDOGREL 75 MG TABLET PO SCH (09:13)
[2018-01-16] MEDS: DOCUSATE SODIUM 100 MG CAPSULE PO SCH (09:14)
[2018-01-16] MEDS: ASCORBIC ACID 500 MG TABLET PO SCH (09:14)
[2018-01-16] MEDS: ASPIRIN EC 81 MG TABLET PO SCH (09:15)
[2018-01-16] MEDS: CARVEDILOL 25 MG TABLET PO SCH (09:15)
[2018-01-16] MEDS: METOCLOPRAMIDE 5 MG TABLET PO SCH ×2 (09:16→13:00)
[2018-01-16] MEDS: CITALOPRAM 20 MG TABLET PO SCH (09:16)
[2018-01-16] MEDS: ENOXAPARIN 40 MG/0.4 ML SYRINGE SUBCUT SCH (09:17)
[2018-01-16] MEDS: INSULIN LISPRO 100 UNIT/ML SUBCUT SCH ×2 (09:25→12:59)
[2018-01-16] MEDS: POLYETHYLENE GLYCOL POWDER 17 GM PACK PO SCH (09:26)
[2018-01-16] MEDS: LACTULOSE 20 GM/30 ML UDCUP PO SCH (09:26)
[2018-01-16] MEDS: NYSTATIN 500,000 UNIT/5 ML UDCUP SWISH/SWAL SCH ×2 (09:26→15:24)
[2018-01-16] MEDS ORDERED: DOXAZOSIN 1 MG TABLET PO SCH (10:53)
[2018-01-16 12:35] VITALS: BP 162/91
[2018-01-16] MEDS: COLLAGENASE OINT 30 GM TUBE TOP SCH (14:20)
[2018-01-16] MEDS: SODIUM HYPOCHLORITE 0.25% IRRIG 473 ML BOTTLE TOP SCH (14:20)
== END 2018-01-16 15:24 | DRG 199 ==
LOC: N.ED 13:33 → SUATTDRO 20:35 → N.EDINP 20:35 → N.CC 21:20 → N.TELES 01-12 10:46
PROVIDERS: ADMIT Family Medicine; ATTEND Hospitalist

== ENCOUNTER 2018-02-01 13:16 | Inpatient (IN) ==
[2018-02-01] MEDS ORDERED: ALBUTEROL/IPRATROPIUM 3 ML NEB RESP TX STA (14:00)
[2018-02-01] MEDS ORDERED: FUROSEMIDE 40 MG/4 ML VIAL IV STA (14:03)
[2018-02-01 15:30] LABS: Basophils % 0.2 % (0.0-0.8); Eosinophils % 0.5 % (0.00-10.9); Hematocrit 25.1 VOL% (35.7-47.0); Hemoglobin 7.7 GM/DL (12.0-16.0); Immature Granulocytes % 0.5 %; Immature Granulocytes Absolute 0.03 #; Lymphocytes # 0.7 10*3/uL (1.4-4.0); Lymphocytes % 11.1 % (21.3-54.2); Mean Corpuscular HGB Conc 30.7 GM/DL (32-36); Mean Corpuscular Hemoglobin 30 PG (27-34); Mean Corpuscular Volume 97.7 FL (87-102); Mean Platelet Volume 10.9 FL (9.6-12.0); Monocytes # 0.5 10*3/uL (0.11-0.8); Monocytes % 7.9 % (1.7-12.7); Neutrophils % 79.8 % (38.7-73.9); Platelet Count 342 T/CUMM (130-400); Red Blood Count 2.57 MC/CUMM (3.8-5.5); Red Cell Distribution Width 19.2 % (9.3-17.3); White Blood Count 6.3 T/CUMM (4-12)
[2018-02-01 15:39] LABS: INR 1.1; PT Patient Result 11.8 SECS; Partial Thromboplastin Time 27.2 SECS (0-40)
[2018-02-01 15:43] LABS: Alanine Aminotransferase 41 U/L (13-56); Albumin 2.4 G/DL (3.4-5.0); Alkaline Phosphatase 389 U/L (45-117); Aspartate Amino Transferase 42 U/L (0-37); Bilirubin,Total < 0.39 MG/DL (0.2-1.0); Blood Urea Nitrogen 37 MG/DL (7-18); Calcium 8.4 MG/DL (8.5-10.1); Glucose 413 MG/DL (74-106); Osmolality,Calculated 302.5 MOS/KG (273-304); Potassium 4.7 MMOL/L (3.5-5.1); Sodium 139 MMOL/L (136-145); Total Protein 7.5 G/DL (6.4-8.3); Troponin I < 0.015 NG/ML (0.00-0.045)
[2018-02-01 16:05] LABS: Amorphous Crystals,Urine Occasional /HPF (Few); Apearance,Urine CLOUDY (Clear); Bacteria,Urine Many /HPF (Few); Bilirubin,Urine Negative (Negative); Blood, Urine Negative (Negative); Glucose,Urine (UA) 50 mg/dL (Negative); Hyaline Casts,Urine 21 /LPF (0-3); Ketones,Urine Negative (Negative); Mucus,Urine Occasional /LPF (Occasional); Nitrite,Urine Negative (Negative); Protein,Urine 100 MG/DL; RBC,Urine 3 /HPF (0-4); Squamous Epithelial Cell,Urine Few /HPF (0-10); Urine Color Amber (Yellow); Urine Specific Gravity 1.016 (1.001-1.035); Urine Urobilinogen < 2.0 EU/DL (0.2-1.0); WBC,Urine 4 /HPF (0-6)
[2018-02-01] MEDS ORDERED: hydrALAZINE 20 MG/1 ML VIAL IV STA ×2 (16:38→16:39)
[2018-02-01] MEDS ORDERED: ACETAMINOPHEN 325 MG TABLET PO PRN (16:41)
[2018-02-01] MEDS ORDERED: NITROGLYCERIN SL 0.4 MG TABLET SL PRN (16:41)
[2018-02-01] MEDS ORDERED: MAGNESIUM SULF RIDER 4 GM in PREMIX 1 EACH IV PRN (16:41)
[2018-02-01] MEDS ORDERED: SODIUM CHLORIDE 0.9% 1,000 ML IV PRN (16:51)
[2018-02-01] MEDS ORDERED: GLUCAGON 1 MG VIAL IM PRN (16:56)
[2018-02-01] MEDS ORDERED: DEXTROSE 50% 25 GM/50 ML VIAL IV PRN (16:56)
[2018-02-01] MEDS ORDERED: FUROSEMIDE 40 MG/4 ML VIAL IV SCH (17:00)
[2018-02-01] MEDS ORDERED: INSULIN GLARGINE 100 UNIT/ML SUBCUT SCH (21:00)
[2018-02-01] MEDS: ERGOCALCIFEROL 50,000 UNIT CAPSULE PO SCH (21:38)
[2018-02-01] MEDS: DOCUSATE SODIUM 100 MG CAPSULE PO SCH (21:44)
[2018-02-01] MEDS: INSULIN REGULAR 100 UNIT/ML SUBCUT SCH (21:44)
[2018-02-01] MEDS: DOXAZOSIN 1 MG TABLET PO SCH (21:44)
[2018-02-01] MEDS: SIMVASTATIN 20 MG TABLET PO SCH (21:44)
[2018-02-01] MEDS: CARVEDILOL 25 MG TABLET PO SCH (21:44)
[2018-02-01] MEDS: ASCORBIC ACID 500 MG TABLET PO SCH (21:44)
[2018-02-01] MEDS: POLYETHYLENE GLYCOL POWDER 17 GM PACK PO SCH (21:45)
[2018-02-01] MEDS: INSULIN GLARGINE 100 UNIT/ML SUBCUT SCH (21:45)
[2018-02-01] MEDS: GABAPENTIN 300 MG CAPSULE PO SCH (21:45)
[2018-02-02 04:40] LABS: Basophils % 0.4 % (0.0-0.8); Eosinophils # 0.1 10*3/uL (0.0-0.87); Eosinophils % 2.2 % (0.00-10.9); Hematocrit 26.8 VOL% (35.7-47.0); Hemoglobin 8.5 GM/DL (12.0-16.0); Immature Granulocytes % 0.4 %; Immature Granulocytes Absolute 0.02 #; Lymphocytes # 1.6 10*3/uL (1.4-4.0); Lymphocytes % 29.7 % (21.3-54.2); Mean Corpuscular HGB Conc 31.7 GM/DL (32-36); Mean Corpuscular Hemoglobin 30 PG (27-34); Mean Corpuscular Volume 94.7 FL (87-102); Monocytes # 0.6 10*3/uL (0.11-0.8); Monocytes % 11.4 % (1.7-12.7); Neutrophils # 3.1 10*3/uL (1.4-7.4); Neutrophils % 55.9 % (38.7-73.9); Platelet Count 298 T/CUMM (130-400); Red Blood Count 2.83 MC/CUMM (3.8-5.5); Red Cell Distribution Width 18.6 % (9.3-17.3); White Blood Count 5.5 T/CUMM (4-12)
[2018-02-02] MEDS: INSULIN REGULAR 100 UNIT/ML SUBCUT SCH ×4 (07:22→20:35)
[2018-02-02 07:52] LABS: Calcium 8.6 MG/DL (8.5-10.1); Osmolality,Calculated 293.4 MOS/KG (273-304); Potassium 4.4 MMOL/L (3.5-5.1)
[2018-02-02] MEDS: SODIUM HYPOCHLORITE 0.25% IRRIG 473 ML BOTTLE TOP SCH (08:06)
[2018-02-02] MEDS: COLLAGENASE OINT 30 GM TUBE TOP SCH (08:06)
[2018-02-02] MEDS: INSULIN GLARGINE 100 UNIT/ML SUBCUT SCH ×2 (08:07→20:35)
[2018-02-02] MEDS: INSULIN NPH 100 UNIT/ML SUBCUT SCH ×3 (08:07→16:20)
[2018-02-02] MEDS: POLYETHYLENE GLYCOL POWDER 17 GM PACK PO SCH ×2 (08:07→20:33)
[2018-02-02] MEDS: CARVEDILOL 25 MG TABLET PO SCH ×2 (08:08→16:43)
[2018-02-02] MEDS: CITALOPRAM 20 MG TABLET PO SCH (08:08)
[2018-02-02] MEDS: ASCORBIC ACID 500 MG TABLET PO SCH ×2 (08:08→20:35)
[2018-02-02] MEDS: DOXAZOSIN 1 MG TABLET PO SCH ×2 (08:08→20:35)
[2018-02-02] MEDS: DOCUSATE SODIUM 100 MG CAPSULE PO SCH ×2 (08:08→20:35)
[2018-02-02] MEDS: CLOPIDOGREL 75 MG TABLET PO SCH (08:08)
[2018-02-02] MEDS: ISOSORBIDE MONONITRATE 30 MG TABLET PO SCH (08:09)
[2018-02-02] MEDS: METOCLOPRAMIDE 10 MG TABLET PO SCH ×3 (08:09→16:43)
[2018-02-02] MEDS: PANTOPRAZOLE 40 MG TABLET PO SCH (08:09)
[2018-02-02] MEDS: FUROSEMIDE 40 MG/4 ML VIAL IV SCH ×2 (08:11→16:44)
[2018-02-02] MEDS: ASPIRIN EC 81 MG TABLET PO SCH (11:02)
[2018-02-02] MEDS: GABAPENTIN 300 MG CAPSULE PO SCH (20:35)
[2018-02-02] MEDS: SIMVASTATIN 20 MG TABLET PO SCH (20:35)
[2018-02-03 05:04] LABS: Basophils % 0.4 % (0.0-0.8); Eosinophils # 0.2 10*3/uL (0.0-0.87); Eosinophils % 3.6 % (0.00-10.9); Hematocrit 25.8 VOL% (35.7-47.0); Hemoglobin 8.1 GM/DL (12.0-16.0); Immature Granulocytes % 0.4 %; Immature Granulocytes Absolute 0.02 #; Lymphocytes # 1.7 10*3/uL (1.4-4.0); Lymphocytes % 29.8 % (21.3-54.2); Mean Corpuscular HGB Conc 31.4 GM/DL (32-36); Mean Corpuscular Hemoglobin 30 PG (27-34); Mean Corpuscular Volume 94.9 FL (87-102); Mean Platelet Volume 10.8 FL (9.6-12.0); Monocytes # 0.7 10*3/uL (0.11-0.8); Monocytes % 12.3 % (1.7-12.7); Neutrophils % 53.5 % (38.7-73.9); Platelet Count 297 T/CUMM (130-400); Red Blood Count 2.72 MC/CUMM (3.8-5.5); Red Cell Distribution Width 18.5 % (9.3-17.3); White Blood Count 5.6 T/CUMM (4-12)
[2018-02-03 05:38] LABS: Calcium 8.5 MG/DL (8.5-10.1); Osmolality,Calculated 293.8 MOS/KG (273-304); Potassium 4.1 MMOL/L (3.5-5.1)
[2018-02-03] MEDS: INSULIN NPH 100 UNIT/ML SUBCUT SCH ×3 (07:33→15:53)
[2018-02-03] MEDS: INSULIN REGULAR 100 UNIT/ML SUBCUT SCH ×4 (07:33→21:27)
[2018-02-03] MEDS: CARVEDILOL 25 MG TABLET PO SCH ×2 (07:43→16:52)
[2018-02-03] MEDS: FUROSEMIDE 40 MG/4 ML VIAL IV SCH ×2 (07:43→16:02)
[2018-02-03] MEDS: METOCLOPRAMIDE 10 MG TABLET PO SCH ×3 (07:43→16:01)
[2018-02-03] MEDS: CLOPIDOGREL 75 MG TABLET PO SCH (09:14)
[2018-02-03] MEDS: POLYETHYLENE GLYCOL POWDER 17 GM PACK PO SCH ×2 (09:14→21:33)
[2018-02-03] MEDS: CITALOPRAM 20 MG TABLET PO SCH (09:14)
[2018-02-03] MEDS: ASCORBIC ACID 500 MG TABLET PO SCH ×2 (09:14→21:23)
[2018-02-03] MEDS: ASPIRIN EC 81 MG TABLET PO SCH (09:15)
[2018-02-03] MEDS: COLLAGENASE OINT 30 GM TUBE TOP SCH (09:15)
[2018-02-03] MEDS: DOCUSATE SODIUM 100 MG CAPSULE PO SCH ×2 (09:15→21:26)
[2018-02-03] MEDS: SODIUM HYPOCHLORITE 0.25% IRRIG 473 ML BOTTLE TOP SCH (09:15)
[2018-02-03] MEDS: PANTOPRAZOLE 40 MG TABLET PO SCH (09:15)
[2018-02-03] MEDS: ISOSORBIDE MONONITRATE 30 MG TABLET PO SCH (09:15)
[2018-02-03] MEDS: DOXAZOSIN 1 MG TABLET PO SCH ×2 (09:17→21:23)
[2018-02-03] MEDS: INSULIN GLARGINE 100 UNIT/ML SUBCUT SCH ×2 (09:26→21:33)
[2018-02-03] MEDS: SIMVASTATIN 20 MG TABLET PO SCH (21:22)
[2018-02-03] MEDS: GABAPENTIN 300 MG CAPSULE PO SCH (21:23)
[2018-02-04 05:29] LABS: Basophils % 0.3 % (0.0-0.8); Eosinophils # 0.2 10*3/uL (0.0-0.87); Eosinophils % 3.2 % (0.00-10.9); Hemoglobin 8.3 GM/DL (12.0-16.0); Immature Granulocytes % 0.2 %; Immature Granulocytes Absolute 0.01 #; Lymphocytes # 1.2 10*3/uL (1.4-4.0); Lymphocytes % 19.3 % (21.3-54.2); Mean Corpuscular HGB Conc 31.9 GM/DL (32-36); Mean Corpuscular Hemoglobin 30 PG (27-34); Mean Corpuscular Volume 95.2 FL (87-102); Mean Platelet Volume 10.8 FL (9.6-12.0); Monocytes # 0.7 10*3/uL (0.11-0.8); Monocytes % 11.1 % (1.7-12.7); Neutrophils # 4.1 10*3/uL (1.4-7.4); Neutrophils % 65.9 % (38.7-73.9); Platelet Count 303 T/CUMM (130-400); Red Blood Count 2.73 MC/CUMM (3.8-5.5); Red Cell Distribution Width 18.4 % (9.3-17.3); White Blood Count 6.2 T/CUMM (4-12)
[2018-02-04 06:10] LABS: Calcium 8.7 MG/DL (8.5-10.1); Osmolality,Calculated 296.1 MOS/KG (273-304); Potassium 4.4 MMOL/L (3.5-5.1)
[2018-02-04] MEDS: INSULIN NPH 100 UNIT/ML SUBCUT SCH ×3 (09:50→15:56)
[2018-02-04] MEDS: METOCLOPRAMIDE 10 MG TABLET PO SCH ×3 (09:51→17:11)
[2018-02-04] MEDS: INSULIN REGULAR 100 UNIT/ML SUBCUT SCH ×4 (09:51→21:59)
[2018-02-04] MEDS: CARVEDILOL 25 MG TABLET PO SCH ×2 (09:52→17:11)
[2018-02-04] MEDS: FUROSEMIDE 40 MG/4 ML VIAL IV SCH ×2 (09:52→17:11)
[2018-02-04] MEDS: ASPIRIN EC 81 MG TABLET PO SCH (09:53)
[2018-02-04] MEDS: DOXAZOSIN 1 MG TABLET PO SCH (09:53)
[2018-02-04] MEDS: CITALOPRAM 20 MG TABLET PO SCH (09:54)
[2018-02-04] MEDS: DOCUSATE SODIUM 100 MG CAPSULE PO SCH ×2 (09:54→21:59)
[2018-02-04] MEDS: SODIUM HYPOCHLORITE 0.25% IRRIG 473 ML BOTTLE TOP SCH (09:54)
[2018-02-04] MEDS: PANTOPRAZOLE 40 MG TABLET PO SCH (09:55)
[2018-02-04] MEDS: POLYETHYLENE GLYCOL POWDER 17 GM PACK PO SCH ×2 (09:55→21:59)
[2018-02-04] MEDS: CLOPIDOGREL 75 MG TABLET PO SCH (09:55)
[2018-02-04] MEDS: INSULIN GLARGINE 100 UNIT/ML SUBCUT SCH ×2 (09:55→21:59)
[2018-02-04] MEDS: ISOSORBIDE MONONITRATE 30 MG TABLET PO SCH (09:55)
[2018-02-04] MEDS: COLLAGENASE OINT 30 GM TUBE TOP SCH (09:56)
[2018-02-04] MEDS: ASCORBIC ACID 500 MG TABLET PO SCH ×2 (09:56→21:51)
[2018-02-04 20:04] LABS: ABG Base Excess 2.3 MMOL/L (-2.5-2.5); ABG HCO3 29.2 MMOL/L (20-26); ABG Oxygen Saturation 82.7 % (95-100); ABG PCO2 56.2 MM HG (35-48); ABG PH 7.333 (7.35-7.45); ABG PO2 54.4 MM HG (80-95); ABG TCO2 30.9 MMOL/L (23-27)
[2018-02-04] MEDS: GABAPENTIN 300 MG CAPSULE PO SCH (21:51)
[2018-02-04] MEDS: SIMVASTATIN 20 MG TABLET PO SCH (21:51)
[2018-02-05] MEDS: DOXAZOSIN 1 MG TABLET PO SCH ×3 (03:31→21:40)
[2018-02-05 05:06] LABS: Basophils % 0.2 % (0.0-0.8); Eosinophils # 0.1 10*3/uL (0.0-0.87); Eosinophils % 0.6 % (0.00-10.9); Hematocrit 27.6 VOL% (35.7-47.0); Hemoglobin 8.7 GM/DL (12.0-16.0); Immature Granulocytes % 0.5 %; Immature Granulocytes Absolute 0.04 #; Lymphocytes % 12.3 % (21.3-54.2); Mean Corpuscular HGB Conc 31.5 GM/DL (32-36); Mean Corpuscular Hemoglobin 30 PG (27-34); Mean Corpuscular Volume 95.2 FL (87-102); Monocytes # 0.6 10*3/uL (0.11-0.8); Monocytes % 7.8 % (1.7-12.7); Neutrophils # 6.5 10*3/uL (1.4-7.4); Neutrophils % 78.6 % (38.7-73.9); Platelet Count 329 T/CUMM (130-400); White Blood Count 8.2 T/CUMM (4-12)
[2018-02-05 05:39] LABS: Calcium 8.9 MG/DL (8.5-10.1); Osmolality,Calculated 290.3 MOS/KG (273-304); Potassium 4.3 MMOL/L (3.5-5.1)
[2018-02-05] MEDS: METOCLOPRAMIDE 10 MG TABLET PO SCH ×3 (10:09→17:06)
[2018-02-05] MEDS: INSULIN REGULAR 100 UNIT/ML SUBCUT SCH ×4 (10:09→22:06)
[2018-02-05] MEDS: ASPIRIN EC 81 MG TABLET PO SCH (10:10)
[2018-02-05] MEDS: CARVEDILOL 25 MG TABLET PO SCH ×2 (10:10→16:58)
[2018-02-05] MEDS: ASCORBIC ACID 500 MG TABLET PO SCH ×2 (10:10→21:41)
[2018-02-05] MEDS: metOLazone 5 MG TABLET PO SCH (10:10)
[2018-02-05] MEDS: FUROSEMIDE 40 MG/4 ML VIAL IV SCH ×2 (10:10→16:59)
[2018-02-05] MEDS: PANTOPRAZOLE 40 MG TABLET PO SCH (10:11)
[2018-02-05] MEDS: CITALOPRAM 20 MG TABLET PO SCH (10:11)
[2018-02-05] MEDS: CLOPIDOGREL 75 MG TABLET PO SCH (10:11)
[2018-02-05] MEDS: ISOSORBIDE MONONITRATE 30 MG TABLET PO SCH (10:11)
[2018-02-05] MEDS: DOCUSATE SODIUM 100 MG CAPSULE PO SCH ×2 (10:12→22:06)
[2018-02-05] MEDS: POLYETHYLENE GLYCOL POWDER 17 GM PACK PO SCH ×2 (10:12→22:06)
[2018-02-05] MEDS: INSULIN NPH 100 UNIT/ML SUBCUT SCH (11:11)
[2018-02-05] MEDS: COLLAGENASE OINT 30 GM TUBE TOP SCH (14:30)
[2018-02-05] MEDS: SODIUM HYPOCHLORITE 0.25% IRRIG 473 ML BOTTLE TOP SCH (14:30)
[2018-02-05] MEDS: SIMVASTATIN 20 MG TABLET PO SCH (21:41)
[2018-02-05] MEDS: GABAPENTIN 300 MG CAPSULE PO SCH (21:41)
[2018-02-06 04:56] LABS: Microalbum/Creat Ratio Random 667.3 RATIO (0-30)
[2018-02-06 05:11] LABS: Basophils % 0.4 % (0.0-0.8); Eosinophils # 0.2 10*3/uL (0.0-0.87); Eosinophils % 4.3 % (0.00-10.9); Hematocrit 24.9 VOL% (35.7-47.0); Hemoglobin 7.9 GM/DL (12.0-16.0); Immature Granulocytes % 0.5 %; Immature Granulocytes Absolute 0.03 #; Lymphocytes # 1.5 10*3/uL (1.4-4.0); Lymphocytes % 26.6 % (21.3-54.2); Mean Corpuscular HGB Conc 31.7 GM/DL (32-36); Mean Corpuscular Hemoglobin 30 PG (27-34); Mean Platelet Volume 11.1 FL (9.6-12.0); Monocytes # 0.6 10*3/uL (0.11-0.8); Monocytes % 10.6 % (1.7-12.7); Neutrophils # 3.2 10*3/uL (1.4-7.4); Neutrophils % 57.6 % (38.7-73.9); Platelet Count 292 T/CUMM (130-400); Red Blood Count 2.62 MC/CUMM (3.8-5.5); White Blood Count 5.6 T/CUMM (4-12)
[2018-02-06 05:25] LABS: Calcium 7.9 MG/DL (8.5-10.1); Osmolality,Calculated 294.3 MOS/KG (273-304)
[2018-02-06 05:34] LABS: Calcium 8.4 MG/DL (8.5-10.1); Osmolality,Calculated 290.5 MOS/KG (273-304)
[2018-02-06] MEDS: INSULIN REGULAR 100 UNIT/ML SUBCUT SCH ×4 (08:16→21:50)
[2018-02-06] MEDS: ASCORBIC ACID 500 MG TABLET PO SCH ×2 (08:17→21:43)
[2018-02-06] MEDS: CITALOPRAM 20 MG TABLET PO SCH (08:17)
[2018-02-06] MEDS: ISOSORBIDE MONONITRATE 30 MG TABLET PO SCH (08:17)
[2018-02-06] MEDS: DOCUSATE SODIUM 100 MG CAPSULE PO SCH ×2 (08:17→21:44)
[2018-02-06] MEDS: DOXAZOSIN 1 MG TABLET PO SCH ×2 (08:17→21:43)
[2018-02-06] MEDS: PANTOPRAZOLE 40 MG TABLET PO SCH (08:18)
[2018-02-06] MEDS: METOCLOPRAMIDE 10 MG TABLET PO SCH ×3 (08:18→16:25)
[2018-02-06] MEDS: CARVEDILOL 25 MG TABLET PO SCH ×2 (08:18→16:25)
[2018-02-06] MEDS: ASPIRIN EC 81 MG TABLET PO SCH (08:18)
[2018-02-06] MEDS: metOLazone 5 MG TABLET PO SCH (08:18)
[2018-02-06] MEDS: POLYETHYLENE GLYCOL POWDER 17 GM PACK PO SCH ×2 (08:18→21:44)
[2018-02-06] MEDS: CLOPIDOGREL 75 MG TABLET PO SCH (08:18)
[2018-02-06] MEDS: SODIUM HYPOCHLORITE 0.25% IRRIG 473 ML BOTTLE TOP SCH (08:19)
[2018-02-06] MEDS: COLLAGENASE OINT 30 GM TUBE TOP SCH (08:19)
[2018-02-06] MEDS: FUROSEMIDE 40 MG/4 ML VIAL IV SCH ×2 (09:11→16:26)
[2018-02-06] MEDS: SIMVASTATIN 20 MG TABLET PO SCH (21:44)
[2018-02-06] MEDS: GABAPENTIN 300 MG CAPSULE PO SCH (21:44)
[2018-02-07 05:07] LABS: Basophils % 0.2 % (0.0-0.8); Eosinophils # 0.3 10*3/uL (0.0-0.87); Eosinophils % 5.7 % (0.00-10.9); Hemoglobin 8.1 GM/DL (12.0-16.0); Immature Granulocytes % 0.4 %; Immature Granulocytes Absolute 0.02 #; Lymphocytes # 1.4 10*3/uL (1.4-4.0); Lymphocytes % 27.6 % (21.3-54.2); Mean Corpuscular HGB Conc 32.4 GM/DL (32-36); Mean Corpuscular Hemoglobin 30 PG (27-34); Mean Corpuscular Volume 93.6 FL (87-102); Mean Platelet Volume 11.1 FL (9.6-12.0); Monocytes # 0.6 10*3/uL (0.11-0.8); Monocytes % 12.7 % (1.7-12.7); Neutrophils # 2.6 10*3/uL (1.4-7.4); Neutrophils % 53.4 % (38.7-73.9); Platelet Count 282 T/CUMM (130-400); Red Blood Count 2.67 MC/CUMM (3.8-5.5); Red Cell Distribution Width 17.4 % (9.3-17.3); White Blood Count 4.9 T/CUMM (4-12)
[2018-02-07 05:26] LABS: Calcium 8.6 MG/DL (8.5-10.1); Osmolality,Calculated 288.7 MOS/KG (273-304); Potassium 3.6 MMOL/L (3.5-5.1)
[2018-02-07 05:29] LABS: Calcium 8.8 MG/DL (8.5-10.1); Osmolality,Calculated 291.5 MOS/KG (273-304); Potassium 3.6 MMOL/L (3.5-5.1)
[2018-02-07] MEDS: INSULIN REGULAR 100 UNIT/ML SUBCUT SCH ×4 (07:53→20:49)
[2018-02-07] MEDS: METOCLOPRAMIDE 10 MG TABLET PO SCH ×3 (07:54→16:13)
[2018-02-07] MEDS: FUROSEMIDE 40 MG/4 ML VIAL IV SCH ×2 (07:54→16:13)
[2018-02-07] MEDS: POLYETHYLENE GLYCOL POWDER 17 GM PACK PO SCH ×2 (08:01→20:49)
[2018-02-07] MEDS: ASPIRIN EC 81 MG TABLET PO SCH (08:01)
[2018-02-07] MEDS: DOXAZOSIN 1 MG TABLET PO SCH ×2 (08:01→20:48)
[2018-02-07] MEDS: CITALOPRAM 20 MG TABLET PO SCH (08:01)
[2018-02-07] MEDS: CLOPIDOGREL 75 MG TABLET PO SCH (08:02)
[2018-02-07] MEDS: DOCUSATE SODIUM 100 MG CAPSULE PO SCH ×2 (08:02→20:48)
[2018-02-07] MEDS: PANTOPRAZOLE 40 MG TABLET PO SCH (08:02)
[2018-02-07] MEDS: CARVEDILOL 25 MG TABLET PO SCH ×2 (08:02→16:13)
[2018-02-07] MEDS: ISOSORBIDE MONONITRATE 30 MG TABLET PO SCH (08:02)
[2018-02-07] MEDS: ASCORBIC ACID 500 MG TABLET PO SCH ×2 (08:02→20:48)
[2018-02-07] MEDS: COLLAGENASE OINT 30 GM TUBE TOP SCH (08:04)
[2018-02-07] MEDS: SODIUM HYPOCHLORITE 0.25% IRRIG 473 ML BOTTLE TOP SCH (08:04)
[2018-02-07] MEDS: POTASSIUM CHLORIDE 20 MEQ TABLET PO SCH (13:30)
[2018-02-07] MEDS: GABAPENTIN 300 MG CAPSULE PO SCH (20:48)
[2018-02-07] MEDS: SIMVASTATIN 20 MG TABLET PO SCH (20:49)
[2018-02-08 04:14] LABS: Basophils % 0.2 % (0.0-0.8); Eosinophils # 0.3 10*3/uL (0.0-0.87); Eosinophils % 5.8 % (0.00-10.9); Hematocrit 26.6 VOL% (35.7-47.0); Hemoglobin 8.7 GM/DL (12.0-16.0); Immature Granulocytes % 0.4 %; Immature Granulocytes Absolute 0.02 #; Lymphocytes # 1.2 10*3/uL (1.4-4.0); Lymphocytes % 21.8 % (21.3-54.2); Mean Corpuscular HGB Conc 32.7 GM/DL (32-36); Mean Corpuscular Hemoglobin 31 PG (27-34); Mean Corpuscular Volume 93.3 FL (87-102); Mean Platelet Volume 10.6 FL (9.6-12.0); Monocytes # 0.5 10*3/uL (0.11-0.8); Monocytes % 9.7 % (1.7-12.7); Neutrophils # 3.3 10*3/uL (1.4-7.4); Neutrophils % 62.1 % (38.7-73.9); Platelet Count 287 T/CUMM (130-400); Red Blood Count 2.85 MC/CUMM (3.8-5.5); Red Cell Distribution Width 17.2 % (9.3-17.3); White Blood Count 5.4 T/CUMM (4-12)
[2018-02-08 04:41] LABS: Osmolality,Calculated 286.7 MOS/KG (273-304); Potassium 3.6 MMOL/L (3.5-5.1)
[2018-02-08 04:42] LABS: Calcium 8.7 MG/DL (8.5-10.1); Osmolality,Calculated 290.5 MOS/KG (273-304); Potassium 3.6 MMOL/L (3.5-5.1)
[2018-02-08] MEDS: FUROSEMIDE 40 MG/4 ML VIAL IV SCH ×2 (09:00→17:00)
[2018-02-08] MEDS: INSULIN REGULAR 100 UNIT/ML SUBCUT SCH ×4 (09:02→22:10)
[2018-02-08] MEDS: DOXAZOSIN 1 MG TABLET PO SCH ×2 (09:02→22:09)
[2018-02-08] MEDS: ASCORBIC ACID 500 MG TABLET PO SCH ×2 (09:03→22:08)
[2018-02-08] MEDS: CLOPIDOGREL 75 MG TABLET PO SCH (09:03)
[2018-02-08] MEDS: CITALOPRAM 20 MG TABLET PO SCH (09:03)
[2018-02-08] MEDS: PANTOPRAZOLE 40 MG TABLET PO SCH (09:03)
[2018-02-08] MEDS: ISOSORBIDE MONONITRATE 30 MG TABLET PO SCH (09:03)
[2018-02-08] MEDS: ASPIRIN EC 81 MG TABLET PO SCH (09:03)
[2018-02-08] MEDS: DOCUSATE SODIUM 100 MG CAPSULE PO SCH ×2 (09:03→22:10)
[2018-02-08] MEDS: CARVEDILOL 25 MG TABLET PO SCH ×2 (09:03→17:00)
[2018-02-08] MEDS: POTASSIUM CHLORIDE 20 MEQ TABLET PO SCH (09:03)
[2018-02-08] MEDS: POLYETHYLENE GLYCOL POWDER 17 GM PACK PO SCH ×2 (09:04→22:08)
[2018-02-08] MEDS: METOCLOPRAMIDE 10 MG TABLET PO SCH ×3 (09:04→17:00)
[2018-02-08] MEDS: INSULIN GLARGINE 100 UNIT/ML SUBCUT SCH (12:46)
[2018-02-08] MEDS: COLLAGENASE OINT 30 GM TUBE TOP SCH (12:47)
[2018-02-08] MEDS: SODIUM HYPOCHLORITE 0.25% IRRIG 473 ML BOTTLE TOP SCH (12:47)
[2018-02-08] MEDS: ERGOCALCIFEROL 50,000 UNIT CAPSULE PO SCH (17:00)
[2018-02-08] MEDS: SIMVASTATIN 20 MG TABLET PO SCH (22:09)
[2018-02-08] MEDS: GABAPENTIN 300 MG CAPSULE PO SCH (22:09)
[2018-02-09 03:28] LABS: Basophils % 0.2 % (0.0-0.8); Eosinophils # 0.3 10*3/uL (0.0-0.87); Eosinophils % 5.1 % (0.00-10.9); Hematocrit 25.6 VOL% (35.7-47.0); Hemoglobin 8.3 GM/DL (12.0-16.0); Immature Granulocytes % 0.2 %; Immature Granulocytes Absolute 0.01 #; Lymphocytes # 1.3 10*3/uL (1.4-4.0); Lymphocytes % 26.3 % (21.3-54.2); Mean Corpuscular HGB Conc 32.4 GM/DL (32-36); Mean Corpuscular Hemoglobin 30 PG (27-34); Mean Corpuscular Volume 92.4 FL (87-102); Mean Platelet Volume 10.9 FL (9.6-12.0); Monocytes # 0.6 10*3/uL (0.11-0.8); Monocytes % 11.5 % (1.7-12.7); Neutrophils # 2.8 10*3/uL (1.4-7.4); Neutrophils % 56.7 % (38.7-73.9); Platelet Count 295 T/CUMM (130-400); Red Blood Count 2.77 MC/CUMM (3.8-5.5); White Blood Count 4.9 T/CUMM (4-12)
[2018-02-09 03:46] LABS: Calcium 8.7 MG/DL (8.5-10.1); Osmolality,Calculated 285.5 MOS/KG (273-304); Potassium 3.4 MMOL/L (3.5-5.1)
[2018-02-09 03:54] LABS: Calcium 9.4 MG/DL (8.5-10.1); Osmolality,Calculated 285.5 MOS/KG (273-304); Potassium 3.4 MMOL/L (3.5-5.1)
[2018-02-09] MEDS: INSULIN GLARGINE 100 UNIT/ML SUBCUT SCH (09:58)
[2018-02-09] MEDS: DOXAZOSIN 1 MG TABLET PO SCH (09:59)
[2018-02-09] MEDS: ASPIRIN EC 81 MG TABLET PO SCH (09:59)
[2018-02-09] MEDS: DOCUSATE SODIUM 100 MG CAPSULE PO SCH ×2 (09:59→22:25)
[2018-02-09] MEDS: POTASSIUM CHLORIDE 20 MEQ TABLET PO SCH ×2 (09:59→22:50)
[2018-02-09] MEDS: FUROSEMIDE 40 MG/4 ML VIAL IV SCH ×2 (09:59→17:26)
[2018-02-09] MEDS: ASCORBIC ACID 500 MG TABLET PO SCH ×2 (10:00→22:25)
[2018-02-09] MEDS: INSULIN REGULAR 100 UNIT/ML SUBCUT SCH ×4 (10:00→22:24)
[2018-02-09] MEDS: CITALOPRAM 20 MG TABLET PO SCH (10:00)
[2018-02-09] MEDS: CARVEDILOL 25 MG TABLET PO SCH ×2 (10:00→17:28)
[2018-02-09] MEDS: CLOPIDOGREL 75 MG TABLET PO SCH (10:00)
[2018-02-09] MEDS: PANTOPRAZOLE 40 MG TABLET PO SCH (10:00)
[2018-02-09] MEDS: ISOSORBIDE MONONITRATE 30 MG TABLET PO SCH (10:00)
[2018-02-09] MEDS: METOCLOPRAMIDE 10 MG TABLET PO SCH ×3 (10:01→17:27)
[2018-02-09] MEDS: COLLAGENASE OINT 30 GM TUBE TOP SCH (10:06)
[2018-02-09] MEDS: SODIUM HYPOCHLORITE 0.25% IRRIG 473 ML BOTTLE TOP SCH (10:06)
[2018-02-09] MEDS: POLYETHYLENE GLYCOL POWDER 17 GM PACK PO SCH ×2 (10:07→22:24)
[2018-02-09] MEDS: POTASSIUM CHLORIDE 20 MEQ TABLET PO PRN ×2 (12:10→14:30)
[2018-02-09] MEDS: GABAPENTIN 300 MG CAPSULE PO SCH (22:25)
[2018-02-09] MEDS: SIMVASTATIN 20 MG TABLET PO SCH (22:25)
[2018-02-10] MEDS: DOCUSATE SODIUM 100 MG CAPSULE PO SCH ×2 (08:24→21:54)
[2018-02-10] MEDS: CITALOPRAM 20 MG TABLET PO SCH (08:25)
[2018-02-10] MEDS: POTASSIUM CHLORIDE 20 MEQ TABLET PO SCH ×2 (08:25→21:55)
[2018-02-10] MEDS: ASCORBIC ACID 500 MG TABLET PO SCH ×2 (08:25→21:54)
[2018-02-10] MEDS: ASPIRIN EC 81 MG TABLET PO SCH (08:25)
[2018-02-10] MEDS: METOCLOPRAMIDE 10 MG TABLET PO SCH ×3 (08:25→17:37)
[2018-02-10] MEDS: PANTOPRAZOLE 40 MG TABLET PO SCH (08:26)
[2018-02-10] MEDS: CARVEDILOL 25 MG TABLET PO SCH ×2 (08:26→17:37)
[2018-02-10] MEDS: ISOSORBIDE MONONITRATE 30 MG TABLET PO SCH (08:26)
[2018-02-10] MEDS: FUROSEMIDE 40 MG/4 ML VIAL IV SCH ×2 (08:27→17:37)
[2018-02-10] MEDS: INSULIN REGULAR 100 UNIT/ML SUBCUT SCH ×4 (08:27→21:55)
[2018-02-10] MEDS: INSULIN GLARGINE 100 UNIT/ML SUBCUT SCH (08:28)
[2018-02-10] MEDS: POLYETHYLENE GLYCOL POWDER 17 GM PACK PO SCH ×2 (08:29→21:54)
[2018-02-10] MEDS: CLOPIDOGREL 75 MG TABLET PO SCH (08:32)
[2018-02-10] MEDS: COLLAGENASE OINT 30 GM TUBE TOP SCH (13:30)
[2018-02-10] MEDS: SODIUM HYPOCHLORITE 0.25% IRRIG 473 ML BOTTLE TOP SCH (13:30)
[2018-02-10] MEDS: GABAPENTIN 300 MG CAPSULE PO SCH (21:54)
[2018-02-10] MEDS: SIMVASTATIN 20 MG TABLET PO SCH (21:54)
[2018-02-11] MEDS: METOCLOPRAMIDE 10 MG TABLET PO SCH ×2 (08:37→12:12)
[2018-02-11] MEDS: CITALOPRAM 20 MG TABLET PO SCH (08:37)
[2018-02-11] MEDS: ASCORBIC ACID 500 MG TABLET PO SCH (08:37)
[2018-02-11] MEDS: ISOSORBIDE MONONITRATE 30 MG TABLET PO SCH (08:38)
[2018-02-11] MEDS: ASPIRIN EC 81 MG TABLET PO SCH (08:38)
[2018-02-11] MEDS: DOCUSATE SODIUM 100 MG CAPSULE PO SCH (08:38)
[2018-02-11] MEDS: POLYETHYLENE GLYCOL POWDER 17 GM PACK PO SCH (08:39)
[2018-02-11] MEDS: SODIUM HYPOCHLORITE 0.25% IRRIG 473 ML BOTTLE TOP SCH (08:39)
[2018-02-11] MEDS: CARVEDILOL 25 MG TABLET PO SCH (08:39)
[2018-02-11] MEDS: CLOPIDOGREL 75 MG TABLET PO SCH (08:39)
[2018-02-11] MEDS: PANTOPRAZOLE 40 MG TABLET PO SCH (08:39)
[2018-02-11] MEDS: POTASSIUM CHLORIDE 20 MEQ TABLET PO SCH (08:39)
[2018-02-11] MEDS: FUROSEMIDE 40 MG/4 ML VIAL IV SCH ×2 (08:40→16:26)
[2018-02-11] MEDS: INSULIN GLARGINE 100 UNIT/ML SUBCUT SCH (08:48)
[2018-02-11] MEDS: INSULIN REGULAR 100 UNIT/ML SUBCUT SCH ×2 (08:48→12:11)
[2018-02-11] MEDS: COLLAGENASE OINT 30 GM TUBE TOP SCH (08:49)
[2018-02-11 16:27] VITALS: BP 159/75
== END 2018-02-11 17:47 | disposition home health service (06) | DRG 194 ==
LOC: N.ED 13:16 → N.EDINP 16:57 → SUATTDRO 16:57 → N.TELES 19:25
PROVIDERS: ADMIT Hospitalist; ATTEND Internal Medicine

== ENCOUNTER 2018-03-19 15:14 | Inpatient (IN) ==
[2018-03-19 16:44] LABS: Basophils % 0.3 % (0.0-0.8); Eosinophils % 0.2 % (0.00-10.9); Hematocrit 30.2 VOL% (35.7-47.0); Hemoglobin 10.1 GM/DL (12.0-16.0); Immature Granulocytes % 0.3 %; Immature Granulocytes Absolute 0.03 #; Lymphocytes # 1.2 10*3/uL (1.4-4.0); Lymphocytes % 13.1 % (21.3-54.2); Mean Corpuscular HGB Conc 33.4 GM/DL (32-36); Mean Corpuscular Hemoglobin 31 PG (27-34); Mean Corpuscular Volume 92.4 FL (87-102); Mean Platelet Volume 11.7 FL (9.6-12.0); Monocytes # 0.3 10*3/uL (0.11-0.8); Monocytes % 2.9 % (1.7-12.7); Neutrophils # 7.5 10*3/uL (1.4-7.4); Neutrophils % 83.2 % (38.7-73.9); Platelet Count 386 T/CUMM (130-400); Red Blood Count 3.27 MC/CUMM (3.8-5.5); Red Cell Distribution Width 14.5 % (9.3-17.3)
[2018-03-19 17:07] LABS: Albumin 3.3 G/DL (3.4-5.0); Bilirubin,Total 1.2 MG/DL (0.2-1.0); Osmolality,Calculated 287.4 MOS/KG (273-304); Potassium 3.7 MMOL/L (3.5-5.1); Total Protein 9.5 G/DL (6.4-8.3)
[2018-03-19] MEDS ORDERED: ONDANSETRON 4 MG/2 ML VIAL IV ONE (17:25)
[2018-03-19] MEDS ORDERED: SODIUM CHLORIDE 0.9% 1,000 ML IV STA ×2 (17:25→19:03)
[2018-03-19] MEDS ORDERED: INSULIN REGULAR 100 UNIT/ML ONE (17:30)
[2018-03-19] MEDS ORDERED: LABETALOL 20 MG/4 ML SYRINGE IV STA (17:39)
[2018-03-19] MEDS ORDERED: INSULIN REGULAR 100 UNIT/ML SUBCUT STA (17:55)
[2018-03-19] MEDS ORDERED: LORazepam 2 MG/1 ML VIAL ONE ×2 (17:58→18:00)
[2018-03-19] MEDS ORDERED: LORazepam 2 MG/1 ML VIAL IV STA (18:07)
[2018-03-19] MEDS ORDERED: INSULIN REGULAR 100 UNIT/ML IV STA (19:03)
[2018-03-19] MEDS ORDERED: niCARdipine 25 MG/10 ML VIAL IV ONE (19:37)
[2018-03-19] MEDS: niCARdipine INJ 25 MG in SODIUM CHLORIDE 0.9% 240 ML IV PRN (19:45)
[2018-03-19] MEDS ORDERED: ENALAPRIL 2.5 MG/2 ML VIAL IV PRN (21:53)
[2018-03-19] MEDS ORDERED: METOPROLOL TARTRATE 5 MG/5 ML VIAL IV PRN (21:53)
[2018-03-19] MEDS ORDERED: DEXTROSE 50% 25 GM/50 ML VIAL IV PRN (21:53)
[2018-03-19] MEDS ORDERED: ACETAMINOPHEN 325 MG TABLET PO PRN (21:53)
[2018-03-19] MEDS ORDERED: GLUCAGON 1 MG VIAL IM PRN (21:53)
[2018-03-19] MEDS: INSULIN REGULAR 100 UNIT/ML SUBCUT SCH (23:32)
[2018-03-19] MEDS: SODIUM CHLORIDE 0.9% 1,000 ML IV SCH (23:32)
[2018-03-20] MEDS: niCARdipine INJ 25 MG in SODIUM CHLORIDE 0.9% 240 ML IV PRN (00:25)
[2018-03-20] MEDS: ONDANSETRON 4 MG/2 ML VIAL IV PRN ×2 (00:55→20:47)
[2018-03-20] MEDS ORDERED: niCARdipine INJ 50 MG in SODIUM CHLORIDE 0.9% 480 ML IV PRN ×2 (01:16→11:12)
[2018-03-20 06:35] LABS: Calcium 10.1 MG/DL (8.5-10.1); Osmolality,Calculated 296.3 MOS/KG (273-304); Potassium 3.4 MMOL/L (3.5-5.1)
[2018-03-20 06:38] LABS: Troponin I 1.48 NG/ML (0.00-0.045)
[2018-03-20] MEDS: ENOXAPARIN 40 MG/0.4 ML SYRINGE SUBCUT SCH (08:41)
[2018-03-20] MEDS: PANTOPRAZOLE 40 MG TABLET PO SCH (08:41)
[2018-03-20] MEDS: INSULIN REGULAR 100 UNIT/ML SUBCUT SCH ×4 (08:42→20:42)
[2018-03-20 12:55] LABS: CKMB % 4.1 %
[2018-03-20 12:57] LABS: Troponin I 1.21 NG/ML (0.00-0.045)
[2018-03-20] MEDS: ASPIRIN EC 81 MG TABLET PO SCH (13:03)
[2018-03-20] MEDS: ASCORBIC ACID 500 MG TABLET PO SCH ×2 (13:03→20:40)
[2018-03-20] MEDS: ISOSORBIDE MONONITRATE 60 MG TABLET PO SCH (13:05)
[2018-03-20] MEDS: CARVEDILOL 25 MG TABLET PO SCH ×2 (13:05→20:40)
[2018-03-20] MEDS: CLOPIDOGREL 75 MG TABLET PO SCH (13:27)
[2018-03-20] MEDS: SODIUM CHLORIDE 0.9% 1,000 ML IV SCH ×3 (13:27→23:27)
[2018-03-20 15:30] LABS: Troponin I 0.784 NG/ML (0.00-0.045)
[2018-03-20] MEDS ORDERED: PHENYTOIN INJ 1,000 MG in SODIUM CHLORIDE 0.9% 100 ML IV ONE (16:27)
[2018-03-20] MEDS: POTASSIUM CHLORIDE 20 MEQ TABLET PO SCH (20:39)
[2018-03-20] MEDS: LOVASTATIN 20 MG TABLET PO SCH (20:39)
[2018-03-20] MEDS: PHENYTOIN ER 100 MG CAPSULE PO SCH (20:41)
[2018-03-20] MEDS ORDERED: CARVEDILOL 25 MG TABLET PO SCH (21:00)
[2018-03-20] MEDS ORDERED: INSULIN GLARGINE 100 UNIT/ML SUBCUT SCH (21:00)
[2018-03-20 23:09] LABS: Amorphous Crystals,Urine Occasional /HPF (Few); Apearance,Urine CLOUDY (Clear); Bacteria,Urine Occasional /HPF (Few); Bilirubin,Urine Negative (Negative); Blood, Urine Negative (Negative); Glucose,Urine (UA) 50 mg/dL (Negative); Hyaline Casts,Urine 61 /LPF (0-3); Ketones,Urine Negative (Negative); Mucus,Urine Occasional /LPF (Occasional); Nitrite,Urine Negative (Negative); Protein,Urine >=500 MG/DL; RBC,Urine 37 /HPF (0-4); Squamous Epithelial Cell,Urine Occasional /HPF (0-10); Urine Color Amber (Yellow); Urine Specific Gravity 1.018 (1.001-1.035); Urine Urobilinogen < 2.0 EU/DL (0.2-1.0); WBC,Urine 16 /HPF (0-6)
[2018-03-21 06:07] LABS: Basophils % 0.2 % (0.0-0.8); Hematocrit 22.5 VOL% (35.7-47.0); Immature Granulocytes % 0.4 %; Immature Granulocytes Absolute 0.04 #; Lymphocytes # 2.7 10*3/uL (1.4-4.0); Lymphocytes % 27.2 % (21.3-54.2); Mean Corpuscular Hemoglobin 31 PG (27-34); Mean Corpuscular Volume 97.8 FL (87-102); Mean Platelet Volume 11.2 FL (9.6-12.0); Monocytes # 0.8 10*3/uL (0.11-0.8); Monocytes % 8.4 % (1.7-12.7); Neutrophils # 6.4 10*3/uL (1.4-7.4); Neutrophils % 63.8 % (38.7-73.9); Red Cell Distribution Width 15.3 % (9.3-17.3)
[2018-03-21 06:23] LABS: Calcium 9.3 MG/DL (8.5-10.1); Potassium 3.7 MMOL/L (3.5-5.1)
[2018-03-21 06:28] LABS: Hemoglobin 7.2 GM/DL (12.0-16.0); Platelet Count 284 T/CUMM (130-400)
[2018-03-21] MEDS: SODIUM CHLORIDE 0.9% 1,000 ML IV SCH (06:37)
[2018-03-21] MEDS: INSULIN REGULAR 100 UNIT/ML SUBCUT SCH ×4 (08:01→20:33)
[2018-03-21] MEDS: ENOXAPARIN 40 MG/0.4 ML SYRINGE SUBCUT SCH (08:01)
[2018-03-21] MEDS: PHENYTOIN ER 100 MG CAPSULE PO SCH ×3 (08:02→20:32)
[2018-03-21] MEDS: TORSEMIDE 20 MG TABLET PO SCH (08:02)
[2018-03-21] MEDS: CLOPIDOGREL 75 MG TABLET PO SCH (08:02)
[2018-03-21] MEDS: ASCORBIC ACID 500 MG TABLET PO SCH ×2 (08:02→20:33)
[2018-03-21] MEDS: ISOSORBIDE MONONITRATE 60 MG TABLET PO SCH (08:02)
[2018-03-21] MEDS: CARVEDILOL 25 MG TABLET PO SCH ×2 (08:02→20:32)
[2018-03-21] MEDS: POTASSIUM CHLORIDE 20 MEQ TABLET PO SCH ×2 (08:02→20:33)
[2018-03-21] MEDS: PANTOPRAZOLE 40 MG TABLET PO SCH (08:02)
[2018-03-21] MEDS: ASPIRIN EC 81 MG TABLET PO SCH (08:02)
[2018-03-21] MEDS: INSULIN GLARGINE 100 UNIT/ML SUBCUT SCH (20:34)
[2018-03-21] MEDS: LOVASTATIN 20 MG TABLET PO SCH (20:34)
[2018-03-22] MEDS: hydrALAZINE 20 MG/1 ML VIAL IV PRN ×3 (04:01→16:10)
[2018-03-22 04:10] LABS: Basophils % 0.3 % (0.0-0.8); Eosinophils # 0.1 10*3/uL (0.0-0.87); Eosinophils % 1.4 % (0.00-10.9); Hematocrit 27.3 VOL% (35.7-47.0); Hemoglobin 8.6 GM/DL (12.0-16.0); Immature Granulocytes % 0.3 %; Immature Granulocytes Absolute 0.02 #; Lymphocytes # 3.1 10*3/uL (1.4-4.0); Mean Corpuscular HGB Conc 31.5 GM/DL (32-36); Mean Corpuscular Hemoglobin 31 PG (27-34); Mean Corpuscular Volume 97.8 FL (87-102); Mean Platelet Volume 11.9 FL (9.6-12.0); Monocytes # 0.7 10*3/uL (0.11-0.8); Neutrophils # 3.1 10*3/uL (1.4-7.4); Platelet Count 303 T/CUMM (130-400); Red Blood Count 2.79 MC/CUMM (3.8-5.5); Red Cell Distribution Width 14.6 % (9.3-17.3); White Blood Count 7.1 T/CUMM (4-12)
[2018-03-22 04:11] LABS: ABG Base Excess 0.2 MMOL/L (-2.5-2.5); ABG HCO3 23.3 MMOL/L (20-26); ABG Oxygen Saturation 95.5 % (95-100); ABG PCO2 31.4 MM HG (35-48); ABG PH 7.488 (7.35-7.45); ABG PO2 79.4 MM HG (80-95); ABG TCO2 24.2 MMOL/L (23-27); Allen Test Positive
[2018-03-22 04:27] LABS: Calcium 9.3 MG/DL (8.5-10.1); Osmolality,Calculated 289.3 MOS/KG (273-304); Potassium 3.4 MMOL/L (3.5-5.1)
[2018-03-22] MEDS: INSULIN REGULAR 100 UNIT/ML SUBCUT SCH ×4 (07:30→22:12)
[2018-03-22] MEDS: ASPIRIN EC 81 MG TABLET PO SCH (09:07)
[2018-03-22] MEDS: CARVEDILOL 25 MG TABLET PO SCH ×2 (09:08→22:11)
[2018-03-22] MEDS: PHENYTOIN ER 100 MG CAPSULE PO SCH ×3 (09:08→22:11)
[2018-03-22] MEDS: TORSEMIDE 20 MG TABLET PO SCH (09:08)
[2018-03-22] MEDS: POTASSIUM CHLORIDE 20 MEQ TABLET PO SCH ×2 (09:09→22:11)
[2018-03-22] MEDS: CLOPIDOGREL 75 MG TABLET PO SCH (09:09)
[2018-03-22] MEDS: ISOSORBIDE MONONITRATE 60 MG TABLET PO SCH (09:09)
[2018-03-22] MEDS: ASCORBIC ACID 500 MG TABLET PO SCH ×2 (09:10→22:11)
[2018-03-22] MEDS: PANTOPRAZOLE 40 MG TABLET PO SCH (09:10)
[2018-03-22] MEDS: ENOXAPARIN 40 MG/0.4 ML SYRINGE SUBCUT SCH (09:17)
[2018-03-22] MEDS ORDERED: MAGNESIUM SULF RIDER 50 ML IV ONE (18:48)
[2018-03-22] MEDS ORDERED: MAGNESIUM SULF RIDER 2 GM in PREMIX 1 EACH IV ONE (18:51)
[2018-03-22] MEDS: INSULIN GLARGINE 100 UNIT/ML SUBCUT SCH (22:11)
[2018-03-22] MEDS: LOVASTATIN 20 MG TABLET PO SCH ×2 (22:12→22:28)
[2018-03-22] MEDS: SIMVASTATIN 20 MG TABLET PO SCH (23:39)
[2018-03-23] MEDS ORDERED: SODIUM CHLORIDE 0.9% 500 ML IV ONE (02:55)
[2018-03-23 04:07] LABS: Basophils % 0.3 % (0.0-0.8); Eosinophils # 0.2 10*3/uL (0.0-0.87); Eosinophils % 2.7 % (0.00-10.9); Hemoglobin 8.7 GM/DL (12.0-16.0); Immature Granulocytes % 0.3 %; Immature Granulocytes Absolute 0.02 #; Lymphocytes # 2.6 10*3/uL (1.4-4.0); Lymphocytes % 38.2 % (21.3-54.2); Mean Corpuscular HGB Conc 32.2 GM/DL (32-36); Mean Corpuscular Hemoglobin 31 PG (27-34); Mean Corpuscular Volume 95.1 FL (87-102); Mean Platelet Volume 11.6 FL (9.6-12.0); Monocytes # 0.9 10*3/uL (0.11-0.8); Monocytes % 12.6 % (1.7-12.7); Neutrophils # 3.1 10*3/uL (1.4-7.4); Neutrophils % 45.9 % (38.7-73.9); Platelet Count 335 T/CUMM (130-400); Red Blood Count 2.84 MC/CUMM (3.8-5.5); Red Cell Distribution Width 14.5 % (9.3-17.3); White Blood Count 6.7 T/CUMM (4-12)
[2018-03-23 04:18] LABS: Calcium 9.3 MG/DL (8.5-10.1); Osmolality,Calculated 285.5 MOS/KG (273-304); Potassium 3.4 MMOL/L (3.5-5.1)
[2018-03-23] MEDS: INSULIN REGULAR 100 UNIT/ML SUBCUT SCH ×4 (07:25→21:34)
[2018-03-23] MEDS ORDERED: amLODIPine 10 MG TABLET PO SCH (09:00)
[2018-03-23] MEDS: POTASSIUM CHLORIDE 20 MEQ TABLET PO SCH ×2 (09:43→21:35)
[2018-03-23] MEDS: ASPIRIN EC 81 MG TABLET PO SCH (09:43)
[2018-03-23] MEDS: ASCORBIC ACID 500 MG TABLET PO SCH ×2 (09:43→21:36)
[2018-03-23] MEDS: CLOPIDOGREL 75 MG TABLET PO SCH (09:44)
[2018-03-23] MEDS: ISOSORBIDE MONONITRATE 60 MG TABLET PO SCH (09:44)
[2018-03-23] MEDS: TORSEMIDE 20 MG TABLET PO SCH (09:44)
[2018-03-23] MEDS: CARVEDILOL 25 MG TABLET PO SCH ×2 (09:45→21:34)
[2018-03-23] MEDS: LISINOPRIL 5 MG TABLET PO SCH (09:47)
[2018-03-23] MEDS: PANTOPRAZOLE 40 MG TABLET PO SCH (09:48)
[2018-03-23] MEDS: ENOXAPARIN 40 MG/0.4 ML SYRINGE SUBCUT SCH (09:52)
[2018-03-23] MEDS ORDERED: POTASSIUM CHLORIDE 20 MEQ TABLET PO ONE (11:04)
[2018-03-23] MEDS: POTASSIUM CHLORIDE RIDER 10 MEQ in PREMIX 1 EACH IV SCH (14:32)
[2018-03-23] MEDS: PHENYTOIN ER 100 MG CAPSULE PO SCH (21:34)
[2018-03-23] MEDS: INSULIN GLARGINE 100 UNIT/ML SUBCUT SCH (21:35)
[2018-03-23] MEDS: SIMVASTATIN 20 MG TABLET PO SCH (21:36)
[2018-03-23 23:18] LABS: HIV Antigen/Antibody Result Nonreactive (Nonreactive); Hepatitis B Surface Ag Quant 0.41 Index; Hepatitis B Surface Ag Result Negative (Negative); Hepatitis C Virus Ab Quant 0.08 Index; Hepatitis C Virus Ab Result Negative (Negative)
[2018-03-24 03:55] LABS: Basophils % 0.3 % (0.0-0.8); Eosinophils # 0.2 10*3/uL (0.0-0.87); Eosinophils % 2.8 % (0.00-10.9); Hematocrit 26.7 VOL% (35.7-47.0); Hemoglobin 8.6 GM/DL (12.0-16.0); Immature Granulocytes % 0.1 %; Immature Granulocytes Absolute 0.01 #; Lymphocytes # 2.1 10*3/uL (1.4-4.0); Lymphocytes % 28.8 % (21.3-54.2); Mean Corpuscular HGB Conc 32.2 GM/DL (32-36); Mean Corpuscular Hemoglobin 31 PG (27-34); Mean Corpuscular Volume 95.4 FL (87-102); Mean Platelet Volume 11.6 FL (9.6-12.0); Monocytes % 13.3 % (1.7-12.7); Neutrophils # 4.1 10*3/uL (1.4-7.4); Neutrophils % 54.7 % (38.7-73.9); Platelet Count 328 T/CUMM (130-400); Red Cell Distribution Width 14.7 % (9.3-17.3); White Blood Count 7.4 T/CUMM (4-12)
[2018-03-24 04:13] LABS: Calcium 9.1 MG/DL (8.5-10.1); Osmolality,Calculated 283.7 MOS/KG (273-304); Potassium 3.7 MMOL/L (3.5-5.1)
[2018-03-24] MEDS: INSULIN REGULAR 100 UNIT/ML SUBCUT SCH ×4 (07:40→21:29)
[2018-03-24] MEDS: CARVEDILOL 25 MG TABLET PO SCH ×2 (09:03→21:18)
[2018-03-24] MEDS: ASPIRIN EC 81 MG TABLET PO SCH (09:03)
[2018-03-24] MEDS: TORSEMIDE 20 MG TABLET PO SCH (09:04)
[2018-03-24] MEDS: POTASSIUM CHLORIDE 20 MEQ TABLET PO SCH ×2 (09:04→21:18)
[2018-03-24] MEDS: ISOSORBIDE MONONITRATE 60 MG TABLET PO SCH (09:04)
[2018-03-24] MEDS: CLOPIDOGREL 75 MG TABLET PO SCH (09:05)
[2018-03-24] MEDS: LISINOPRIL 5 MG TABLET PO SCH (09:05)
[2018-03-24] MEDS: PANTOPRAZOLE 40 MG TABLET PO SCH (09:06)
[2018-03-24] MEDS: ENOXAPARIN 40 MG/0.4 ML SYRINGE SUBCUT SCH (09:06)
[2018-03-24] MEDS: ASCORBIC ACID 500 MG TABLET PO SCH ×2 (09:06→21:18)
[2018-03-24] MEDS ORDERED: LORazepam 2 MG/1 ML VIAL IV PRN (10:22)
[2018-03-24] MEDS ORDERED: hydrALAZINE 25 MG TABLET ONE (12:18)
[2018-03-24] MEDS: POTASSIUM CHLORIDE RIDER 10 MEQ in PREMIX 1 EACH IV SCH (12:29)
[2018-03-24] MEDS: PHENYTOIN ER 100 MG CAPSULE PO SCH (21:17)
[2018-03-24] MEDS: SIMVASTATIN 20 MG TABLET PO SCH (21:18)
[2018-03-24] MEDS: INSULIN GLARGINE 100 UNIT/ML SUBCUT SCH (21:28)
[2018-03-24] MEDS: PROMETHAZINE 25 MG/1 ML VIAL IM PRN (22:02)
[2018-03-24] MEDS: ONDANSETRON 4 MG/2 ML VIAL IV PRN (23:58)
[2018-03-25 04:24] LABS: Basophils % 0.3 % (0.0-0.8); Eosinophils # 0.2 10*3/uL (0.0-0.87); Eosinophils % 2.6 % (0.00-10.9); Hemoglobin 9.2 GM/DL (12.0-16.0); Immature Granulocytes % 0.3 %; Immature Granulocytes Absolute 0.02 #; Lymphocytes # 1.9 10*3/uL (1.4-4.0); Lymphocytes % 30.4 % (21.3-54.2); Mean Corpuscular HGB Conc 31.7 GM/DL (32-36); Mean Corpuscular Hemoglobin 30 PG (27-34); Mean Corpuscular Volume 95.4 FL (87-102); Mean Platelet Volume 11.3 FL (9.6-12.0); Monocytes # 0.8 10*3/uL (0.11-0.8); Monocytes % 12.9 % (1.7-12.7); Neutrophils # 3.3 10*3/uL (1.4-7.4); Neutrophils % 53.5 % (38.7-73.9); Platelet Count 352 T/CUMM (130-400); Red Blood Count 3.04 MC/CUMM (3.8-5.5); Red Cell Distribution Width 14.7 % (9.3-17.3); White Blood Count 6.2 T/CUMM (4-12)
[2018-03-25 04:52] LABS: Calcium 9.1 MG/DL (8.5-10.1); Osmolality,Calculated 282.5 MOS/KG (273-304); Potassium 3.9 MMOL/L (3.5-5.1)
[2018-03-25] MEDS: INSULIN REGULAR 100 UNIT/ML SUBCUT SCH ×4 (08:20→21:20)
[2018-03-25] MEDS ORDERED: BISACODYL 5 MG TABLET PO ONE (08:46)
[2018-03-25] MEDS: LISINOPRIL 5 MG TABLET PO SCH (09:55)
[2018-03-25] MEDS: ASCORBIC ACID 500 MG TABLET PO SCH ×2 (09:55→21:11)
[2018-03-25] MEDS: ISOSORBIDE MONONITRATE 60 MG TABLET PO SCH (09:55)
[2018-03-25] MEDS: CLOPIDOGREL 75 MG TABLET PO SCH (09:55)
[2018-03-25] MEDS: POTASSIUM CHLORIDE 20 MEQ TABLET PO SCH ×2 (09:55→21:11)
[2018-03-25] MEDS: CARVEDILOL 25 MG TABLET PO SCH ×2 (09:55→21:11)
[2018-03-25] MEDS: PANTOPRAZOLE 40 MG TABLET PO SCH (09:55)
[2018-03-25] MEDS: TORSEMIDE 20 MG TABLET PO SCH (09:56)
[2018-03-25] MEDS: ENOXAPARIN 40 MG/0.4 ML SYRINGE SUBCUT SCH (09:56)
[2018-03-25] MEDS: ASPIRIN EC 81 MG TABLET PO SCH (09:56)
[2018-03-25] MEDS: LINEZOLID 600 MG TABLET PO SCH ×2 (12:33→21:49)
[2018-03-25] MEDS: PHENYTOIN ER 100 MG CAPSULE PO SCH (21:11)
[2018-03-25] MEDS: SIMVASTATIN 20 MG TABLET PO SCH (21:11)
[2018-03-25] MEDS: INSULIN GLARGINE 100 UNIT/ML SUBCUT SCH (21:20)
[2018-03-25] MEDS: ONDANSETRON 4 MG/2 ML VIAL IV PRN (21:49)
[2018-03-26] MEDS: ONDANSETRON 4 MG/2 ML VIAL IV PRN ×2 (04:23→08:39)
[2018-03-26 05:02] LABS: Basophils % 0.5 % (0.0-0.8); Eosinophils # 0.2 10*3/uL (0.0-0.87); Eosinophils % 3.3 % (0.00-10.9); Hematocrit 29.4 VOL% (35.7-47.0); Hemoglobin 9.5 GM/DL (12.0-16.0); Immature Granulocytes % 0.5 %; Immature Granulocytes Absolute 0.03 #; Lymphocytes % 30.8 % (21.3-54.2); Mean Corpuscular HGB Conc 32.3 GM/DL (32-36); Mean Corpuscular Hemoglobin 31 PG (27-34); Mean Corpuscular Volume 95.1 FL (87-102); Mean Platelet Volume 10.7 FL (9.6-12.0); Monocytes # 0.8 10*3/uL (0.11-0.8); Monocytes % 12.3 % (1.7-12.7); Neutrophils # 3.4 10*3/uL (1.4-7.4); Neutrophils % 52.6 % (38.7-73.9); Platelet Count 360 T/CUMM (130-400); Red Blood Count 3.09 MC/CUMM (3.8-5.5); Red Cell Distribution Width 15.1 % (9.3-17.3); White Blood Count 6.4 T/CUMM (4-12)
[2018-03-26 05:18] LABS: Calcium 9.3 MG/DL (8.5-10.1); Osmolality,Calculated 282.8 MOS/KG (273-304); Osmolality,Calculated 283.8 MOS/KG (273-304); Potassium 4.1 MMOL/L (3.5-5.1); Potassium 4.2 MMOL/L (3.5-5.1)
[2018-03-26] MEDS ORDERED: LACTULOSE 20 GM/30 ML UDCUP PO PRN (12:25)
[2018-03-26] MEDS: INSULIN REGULAR 100 UNIT/ML SUBCUT SCH ×4 (12:39→21:57)
[2018-03-26] MEDS: CARVEDILOL 25 MG TABLET PO SCH ×2 (12:40→21:51)
[2018-03-26] MEDS: DOCUSATE SODIUM 100 MG CAPSULE PO SCH ×2 (12:40→21:53)
[2018-03-26] MEDS: CLOPIDOGREL 75 MG TABLET PO SCH (12:40)
[2018-03-26] MEDS: PANTOPRAZOLE 40 MG TABLET PO SCH (12:40)
[2018-03-26] MEDS: ISOSORBIDE MONONITRATE 60 MG TABLET PO SCH (12:41)
[2018-03-26] MEDS: LINEZOLID 600 MG TABLET PO SCH ×2 (12:41→22:03)
[2018-03-26] MEDS: ENOXAPARIN 40 MG/0.4 ML SYRINGE SUBCUT SCH (12:41)
[2018-03-26] MEDS: ASPIRIN EC 81 MG TABLET PO SCH (12:41)
[2018-03-26] MEDS: ASCORBIC ACID 500 MG TABLET PO SCH ×2 (12:41→21:53)
[2018-03-26] MEDS: TORSEMIDE 20 MG TABLET PO SCH (12:41)
[2018-03-26] MEDS: LISINOPRIL 5 MG TABLET PO SCH (12:52)
[2018-03-26] MEDS: POTASSIUM CHLORIDE 20 MEQ TABLET PO SCH (12:56)
[2018-03-26] MEDS: PROMETHAZINE 25 MG/1 ML VIAL IM PRN (13:21)
[2018-03-26] MEDS ORDERED: LISINOPRIL 5 MG TABLET PO SCH (21:00)
[2018-03-26] MEDS ORDERED: INSULIN GLARGINE 100 UNIT/ML SUBCUT SCH (21:00)
[2018-03-26] MEDS: PHENYTOIN ER 100 MG CAPSULE PO SCH (21:51)
[2018-03-26] MEDS: SIMVASTATIN 20 MG TABLET PO SCH (21:51)
[2018-03-26] MEDS: INSULIN GLARGINE 100 UNIT/ML SUBCUT SCH (21:57)
[2018-03-27] MEDS: ONDANSETRON 4 MG/2 ML VIAL IV PRN ×3 (00:45→20:00)
[2018-03-27] MEDS: PROMETHAZINE 25 MG/1 ML VIAL IM PRN ×2 (02:49→09:59)
[2018-03-27 04:54] LABS: Basophils # 0.1 10*3/uL (0.0-0.2); Basophils % 0.8 % (0.0-0.8); Eosinophils # 0.1 10*3/uL (0.0-0.87); Hematocrit 31.7 VOL% (35.7-47.0); Hemoglobin 10.5 GM/DL (12.0-16.0); Immature Granulocytes % 0.2 %; Immature Granulocytes Absolute 0.01 #; Lymphocytes # 1.5 10*3/uL (1.4-4.0); Lymphocytes % 24.7 % (21.3-54.2); Mean Corpuscular HGB Conc 33.1 GM/DL (32-36); Mean Corpuscular Hemoglobin 31 PG (27-34); Mean Corpuscular Volume 93.5 FL (87-102); Mean Platelet Volume 11.4 FL (9.6-12.0); Monocytes # 0.8 10*3/uL (0.11-0.8); Monocytes % 13.7 % (1.7-12.7); Neutrophils # 3.6 10*3/uL (1.4-7.4); Neutrophils % 58.6 % (38.7-73.9); Platelet Count 430 T/CUMM (130-400); Red Blood Count 3.39 MC/CUMM (3.8-5.5); Red Cell Distribution Width 14.9 % (9.3-17.3); White Blood Count 6.1 T/CUMM (4-12)
[2018-03-27 05:05] LABS: Potassium 3.5 MMOL/L (3.5-5.1)
[2018-03-27] MEDS: CARVEDILOL 25 MG TABLET PO SCH ×2 (06:40→10:30)
[2018-03-27] MEDS ORDERED: LISINOPRIL 5 MG TABLET PO SCH (09:00)
[2018-03-27] MEDS: INSULIN REGULAR 100 UNIT/ML SUBCUT SCH ×4 (10:09→23:23)
[2018-03-27] MEDS: ENOXAPARIN 40 MG/0.4 ML SYRINGE SUBCUT SCH (10:09)
[2018-03-27] MEDS: ISOSORBIDE MONONITRATE 60 MG TABLET PO SCH (10:32)
[2018-03-27] MEDS: PANTOPRAZOLE 40 MG TABLET PO SCH (10:36)
[2018-03-27] MEDS: CLOPIDOGREL 75 MG TABLET PO SCH (10:39)
[2018-03-27] MEDS: ASPIRIN EC 81 MG TABLET PO SCH (10:40)
[2018-03-27] MEDS: DOXAZOSIN 1 MG TABLET PO SCH (10:49)
[2018-03-27] MEDS: TORSEMIDE 20 MG TABLET PO SCH (10:52)
[2018-03-27] MEDS: DOCUSATE SODIUM 100 MG CAPSULE PO SCH (10:55)
[2018-03-27] MEDS: LINEZOLID 600 MG TABLET PO SCH (10:55)
[2018-03-27] MEDS: ASCORBIC ACID 500 MG TABLET PO SCH (10:55)
[2018-03-27] MEDS ORDERED: MINERAL OIL ENEMA 133 ML BOTTLE RECTAL ONE (13:56)
[2018-03-27] MEDS ORDERED: LACTULOSE 20 GM/30 ML UDCUP PO ONE (13:57)
[2018-03-27] MEDS ORDERED: METOCLOPRAMIDE 10 MG/2 ML VIAL IV ONE (13:58)
[2018-03-27] MEDS: amLODIPine 5 MG TABLET PO SCH (14:45)
[2018-03-27] MEDS: PHENYTOIN ER 100 MG CAPSULE PO SCH (23:23)
[2018-03-27] MEDS: INSULIN GLARGINE 100 UNIT/ML SUBCUT SCH (23:23)
[2018-03-28] MEDS: DOXAZOSIN 1 MG TABLET PO SCH ×3 (01:00→23:40)
[2018-03-28] MEDS: SIMVASTATIN 20 MG TABLET PO SCH ×2 (01:00→23:41)
[2018-03-28] MEDS: DOCUSATE SODIUM 100 MG CAPSULE PO SCH ×3 (01:00→23:40)
[2018-03-28] MEDS: CARVEDILOL 25 MG TABLET PO SCH ×3 (01:00→23:41)
[2018-03-28] MEDS: LINEZOLID 600 MG TABLET PO SCH ×3 (01:00→23:41)
[2018-03-28] MEDS: ASCORBIC ACID 500 MG TABLET PO SCH ×3 (01:00→23:39)
[2018-03-28] MEDS: amLODIPine 5 MG TABLET PO SCH (01:44)
[2018-03-28 04:05] LABS: Basophils % 0.5 % (0.0-0.8); Eosinophils % 0.5 % (0.00-10.9); Hematocrit 27.7 VOL% (35.7-47.0); Hemoglobin 8.9 GM/DL (12.0-16.0); Immature Granulocytes % 0.4 %; Immature Granulocytes Absolute 0.02 #; Lymphocytes # 1.6 10*3/uL (1.4-4.0); Lymphocytes % 28.7 % (21.3-54.2); Mean Corpuscular HGB Conc 32.1 GM/DL (32-36); Mean Corpuscular Hemoglobin 31 PG (27-34); Mean Corpuscular Volume 97.2 FL (87-102); Mean Platelet Volume 11.2 FL (9.6-12.0); Monocytes # 0.9 10*3/uL (0.11-0.8); Monocytes % 16.8 % (1.7-12.7); Neutrophils % 53.1 % (38.7-73.9); Platelet Count 356 T/CUMM (130-400); Red Blood Count 2.85 MC/CUMM (3.8-5.5); Red Cell Distribution Width 15.7 % (9.3-17.3); White Blood Count 5.6 T/CUMM (4-12)
[2018-03-28 04:19] LABS: Calcium 9.5 MG/DL (8.5-10.1); Osmolality,Calculated 287.4 MOS/KG (273-304); Potassium 3.6 MMOL/L (3.5-5.1)
[2018-03-28 04:56] LABS: Hypochromasia 1+; Lymphocytes 27 % (20-55); Platelet Estimate Adequate; Segmented Neutrophils 61 % (50-85); Total Cells Counted 100
[2018-03-28] MEDS: INSULIN REGULAR 100 UNIT/ML SUBCUT SCH ×4 (08:30→23:47)
[2018-03-28] MEDS: ASPIRIN EC 81 MG TABLET PO SCH (12:46)
[2018-03-28] MEDS: ISOSORBIDE MONONITRATE 60 MG TABLET PO SCH (12:47)
[2018-03-28] MEDS: ENOXAPARIN 40 MG/0.4 ML SYRINGE SUBCUT SCH (12:47)
[2018-03-28] MEDS: TORSEMIDE 20 MG TABLET PO SCH (12:47)
[2018-03-28] MEDS: CLOPIDOGREL 75 MG TABLET PO SCH (12:48)
[2018-03-28] MEDS: PANTOPRAZOLE 40 MG TABLET PO SCH (12:48)
[2018-03-28] MEDS: PHENYTOIN ER 100 MG CAPSULE PO SCH (23:40)
[2018-03-28] MEDS: INSULIN GLARGINE 100 UNIT/ML SUBCUT SCH (23:47)
[2018-03-29 05:29] LABS: Basophils % 0.7 % (0.0-0.8); Eosinophils % 0.5 % (0.00-10.9); Hematocrit 28.7 VOL% (35.7-47.0); Hemoglobin 9.1 GM/DL (12.0-16.0); Immature Granulocytes % 0.2 %; Immature Granulocytes Absolute 0.01 #; Lymphocytes # 1.9 10*3/uL (1.4-4.0); Lymphocytes % 33.3 % (21.3-54.2); Mean Corpuscular HGB Conc 31.7 GM/DL (32-36); Mean Corpuscular Hemoglobin 31 PG (27-34); Mean Platelet Volume 11.3 FL (9.6-12.0); Monocytes # 0.7 10*3/uL (0.11-0.8); Monocytes % 12.7 % (1.7-12.7); Neutrophils % 52.6 % (38.7-73.9); Platelet Count 366 T/CUMM (130-400); Red Blood Count 2.93 MC/CUMM (3.8-5.5); Red Cell Distribution Width 15.2 % (9.3-17.3); White Blood Count 5.8 T/CUMM (4-12)
[2018-03-29 05:46] LABS: Calcium 9.4 MG/DL (8.5-10.1); Osmolality,Calculated 288.1 MOS/KG (273-304); Potassium 3.2 MMOL/L (3.5-5.1)
[2018-03-29] MEDS: INSULIN REGULAR 100 UNIT/ML SUBCUT SCH ×3 (08:19→16:32)
[2018-03-29] MEDS ORDERED: PROPOFOL 200 MG/20 ML VIAL IV ONE (09:00)
[2018-03-29] MEDS ORDERED: LIDOCAINE 2% 5 ML VIAL ONE (09:00)
[2018-03-29] MEDS ORDERED: ONDANSETRON 4 MG/2 ML VIAL ONE (09:00)
[2018-03-29] MEDS ORDERED: LABETALOL 20 MG/4 ML SYRINGE IV PRN (11:33)
[2018-03-29] MEDS: ENOXAPARIN 40 MG/0.4 ML SYRINGE SUBCUT SCH (11:35)
[2018-03-29] MEDS: POTASSIUM CHLORIDE RIDER 10 MEQ in PREMIX 1 EACH IV PRN ×4 (11:35→18:34)
[2018-03-29] MEDS: ONDANSETRON 4 MG/2 ML VIAL IV PRN ×3 (11:49→20:41)
[2018-03-29] MEDS: LINEZOLID 600 MG TABLET PO SCH (15:59)
[2018-03-29] MEDS: ASCORBIC ACID 500 MG TABLET PO SCH (15:59)
[2018-03-29] MEDS: DOXAZOSIN 1 MG TABLET PO SCH ×2 (16:02→23:50)
[2018-03-29] MEDS: CARVEDILOL 25 MG TABLET PO SCH ×2 (16:31→23:51)
[2018-03-29] MEDS: ASPIRIN EC 81 MG TABLET PO SCH (16:31)
[2018-03-29] MEDS: TORSEMIDE 20 MG TABLET PO SCH (16:31)
[2018-03-29] MEDS: DOCUSATE SODIUM 100 MG CAPSULE PO SCH (16:31)
[2018-03-29] MEDS: CLOPIDOGREL 75 MG TABLET PO SCH (16:32)
[2018-03-29] MEDS: ISOSORBIDE MONONITRATE 60 MG TABLET PO SCH (16:32)
[2018-03-29] MEDS: POTASSIUM CHLORIDE 20 MEQ TABLET PO SCH (16:32)
[2018-03-29] MEDS: PANTOPRAZOLE 40 MG TABLET PO SCH (16:33)
[2018-03-29] MEDS: PROMETHAZINE 25 MG/1 ML VIAL IM PRN (23:50)
[2018-03-29] MEDS: SIMVASTATIN 20 MG TABLET PO SCH (23:51)
[2018-03-29] MEDS: PHENYTOIN ER 100 MG CAPSULE PO SCH (23:51)
[2018-03-30] MEDS: INSULIN REGULAR 100 UNIT/ML SUBCUT SCH ×5 (00:03→22:54)
[2018-03-30] MEDS: ASCORBIC ACID 500 MG TABLET PO SCH ×3 (00:06→22:45)
[2018-03-30] MEDS: LINEZOLID 600 MG TABLET PO SCH ×2 (00:06→09:18)
[2018-03-30] MEDS: DOCUSATE SODIUM 100 MG CAPSULE PO SCH ×3 (00:06→22:45)
[2018-03-30] MEDS: PANTOPRAZOLE 40 MG VIAL IV SCH ×3 (00:08→22:45)
[2018-03-30] MEDS: INSULIN GLARGINE 100 UNIT/ML SUBCUT SCH ×2 (00:10→22:54)
[2018-03-30 06:25] LABS: Basophils % 0.4 % (0.0-0.8); Calcium 8.9 MG/DL (8.5-10.1); Eosinophils % 0.5 % (0.00-10.9); Hemoglobin 9.2 GM/DL (12.0-16.0); Immature Granulocytes % 0.3 %; Immature Granulocytes Absolute 0.02 #; Lymphocytes # 2.2 10*3/uL (1.4-4.0); Lymphocytes % 29.2 % (21.3-54.2); Mean Corpuscular HGB Conc 31.7 GM/DL (32-36); Mean Corpuscular Hemoglobin 31 PG (27-34); Mean Corpuscular Volume 96.7 FL (87-102); Mean Platelet Volume 11.1 FL (9.6-12.0); Monocytes # 0.7 10*3/uL (0.11-0.8); Monocytes % 8.9 % (1.7-12.7); Neutrophils # 4.6 10*3/uL (1.4-7.4); Neutrophils % 60.7 % (38.7-73.9); Osmolality,Calculated 287.5 MOS/KG (273-304); Platelet Count 366 T/CUMM (130-400); Potassium 3.7 MMOL/L (3.5-5.1); White Blood Count 7.5 T/CUMM (4-12)
[2018-03-30] MEDS ORDERED: DAPTOMYCIN IV SCH (09:00)
[2018-03-30] MEDS: POTASSIUM CHLORIDE RIDER 10 MEQ in PREMIX 1 EACH IV PRN ×2 (09:00→11:04)
[2018-03-30] MEDS ORDERED: SODIUM CHLORIDE 0.9% IV SCH (09:00)
[2018-03-30] MEDS: DOXAZOSIN 1 MG TABLET PO SCH (09:13)
[2018-03-30] MEDS: ISOSORBIDE MONONITRATE 60 MG TABLET PO SCH (09:13)
[2018-03-30] MEDS: POTASSIUM CHLORIDE 20 MEQ TABLET PO SCH (09:13)
[2018-03-30] MEDS: ASPIRIN EC 81 MG TABLET PO SCH (09:13)
[2018-03-30] MEDS: CARVEDILOL 25 MG TABLET PO SCH (09:13)
[2018-03-30] MEDS: CLOPIDOGREL 75 MG TABLET PO SCH (09:13)
[2018-03-30] MEDS: ENOXAPARIN 40 MG/0.4 ML SYRINGE SUBCUT SCH (09:14)
[2018-03-30] MEDS: TORSEMIDE 20 MG TABLET PO SCH (09:18)
[2018-03-30] MEDS ORDERED: SODIUM PHOSPHATE ENEMA 133 ML BOTTLE RECTAL ONE (11:29)
[2018-03-30] MEDS: POLYETHYLENE GLYCOL POWDER 17 GM PACK PO SCH (12:33)
[2018-03-30] MEDS: OXYBUTYNIN 5 MG TABLET PO SCH ×2 (12:33→22:44)
[2018-03-30] MEDS: PHENYTOIN ER 100 MG CAPSULE PO SCH (22:45)
[2018-03-31] MEDS: DOXAZOSIN 1 MG TABLET PO SCH ×3 (00:15→23:09)
[2018-03-31] MEDS: CARVEDILOL 25 MG TABLET PO SCH ×3 (00:15→23:09)
[2018-03-31 03:42] LABS: Basophils % 0.5 % (0.0-0.8); Eosinophils # 0.1 10*3/uL (0.0-0.87); Eosinophils % 1.1 % (0.00-10.9); Hematocrit 26.8 VOL% (35.7-47.0); Hemoglobin 8.6 GM/DL (12.0-16.0); Immature Granulocytes % 0.3 %; Immature Granulocytes Absolute 0.02 #; Lymphocytes # 2.1 10*3/uL (1.4-4.0); Mean Corpuscular HGB Conc 32.1 GM/DL (32-36); Mean Corpuscular Hemoglobin 31 PG (27-34); Mean Corpuscular Volume 96.4 FL (87-102); Mean Platelet Volume 11.1 FL (9.6-12.0); Monocytes # 0.6 10*3/uL (0.11-0.8); Monocytes % 8.9 % (1.7-12.7); Neutrophils # 3.8 10*3/uL (1.4-7.4); Neutrophils % 57.2 % (38.7-73.9); Platelet Count 357 T/CUMM (130-400); Red Blood Count 2.78 MC/CUMM (3.8-5.5); Red Cell Distribution Width 14.8 % (9.3-17.3); White Blood Count 6.6 T/CUMM (4-12)
[2018-03-31 04:05] LABS: Calcium 8.9 MG/DL (8.5-10.1); Osmolality,Calculated 286.7 MOS/KG (273-304)
[2018-03-31] MEDS: ISOSORBIDE MONONITRATE 60 MG TABLET PO SCH (09:08)
[2018-03-31] MEDS: CLOPIDOGREL 75 MG TABLET PO SCH (09:10)
[2018-03-31] MEDS: TORSEMIDE 20 MG TABLET PO SCH (09:10)
[2018-03-31] MEDS: DOCUSATE SODIUM 100 MG CAPSULE PO SCH ×2 (09:11→23:09)
[2018-03-31] MEDS: OXYBUTYNIN 5 MG TABLET PO SCH ×2 (09:11→23:11)
[2018-03-31] MEDS: POTASSIUM CHLORIDE 20 MEQ TABLET PO SCH (09:13)
[2018-03-31] MEDS: ASPIRIN EC 81 MG TABLET PO SCH (09:14)
[2018-03-31] MEDS: PANTOPRAZOLE 40 MG VIAL IV SCH ×2 (09:15→23:14)
[2018-03-31] MEDS: POLYETHYLENE GLYCOL POWDER 17 GM PACK PO SCH (09:15)
[2018-03-31] MEDS: ENOXAPARIN 40 MG/0.4 ML SYRINGE SUBCUT SCH (09:15)
[2018-03-31] MEDS: INSULIN REGULAR 100 UNIT/ML SUBCUT SCH ×4 (09:54→23:58)
[2018-03-31] MEDS: ASCORBIC ACID 500 MG TABLET PO SCH (09:54)
[2018-03-31] MEDS: PHENYTOIN ER 100 MG CAPSULE PO SCH (23:09)
[2018-03-31] MEDS: INSULIN GLARGINE 100 UNIT/ML SUBCUT SCH (23:59)
[2018-04-01] MEDS: ASCORBIC ACID 500 MG TABLET PO SCH ×2 (00:26→09:44)
[2018-04-01 06:29] LABS: Basophils % 0.3 % (0.0-0.8); Eosinophils # 0.2 10*3/uL (0.0-0.87); Eosinophils % 2.4 % (0.00-10.9); Hematocrit 26.8 VOL% (35.7-47.0); Hemoglobin 8.5 GM/DL (12.0-16.0); Immature Granulocytes % 0.2 %; Immature Granulocytes Absolute 0.01 #; Lymphocytes # 2.5 10*3/uL (1.4-4.0); Lymphocytes % 39.1 % (21.3-54.2); Mean Corpuscular HGB Conc 31.7 GM/DL (32-36); Mean Corpuscular Hemoglobin 31 PG (27-34); Mean Corpuscular Volume 98.2 FL (87-102); Mean Platelet Volume 11.2 FL (9.6-12.0); Monocytes # 0.6 10*3/uL (0.11-0.8); Monocytes % 9.3 % (1.7-12.7); Neutrophils # 3.1 10*3/uL (1.4-7.4); Neutrophils % 48.7 % (38.7-73.9); Platelet Count 343 T/CUMM (130-400); Red Blood Count 2.73 MC/CUMM (3.8-5.5); Red Cell Distribution Width 14.7 % (9.3-17.3); White Blood Count 6.3 T/CUMM (4-12)
[2018-04-01 06:52] LABS: Calcium 8.8 MG/DL (8.5-10.1); Osmolality,Calculated 277.4 MOS/KG (273-304); Potassium 4.2 MMOL/L (3.5-5.1)
[2018-04-01] MEDS: INSULIN REGULAR 100 UNIT/ML SUBCUT SCH ×2 (09:40→13:14)
[2018-04-01] MEDS: ASPIRIN EC 81 MG TABLET PO SCH (09:41)
[2018-04-01] MEDS: TORSEMIDE 20 MG TABLET PO SCH (09:42)
[2018-04-01] MEDS: DOCUSATE SODIUM 100 MG CAPSULE PO SCH (09:42)
[2018-04-01] MEDS: CARVEDILOL 25 MG TABLET PO SCH (09:42)
[2018-04-01] MEDS: ISOSORBIDE MONONITRATE 60 MG TABLET PO SCH (09:42)
[2018-04-01] MEDS: OXYBUTYNIN 5 MG TABLET PO SCH (09:42)
[2018-04-01] MEDS: ENOXAPARIN 40 MG/0.4 ML SYRINGE SUBCUT SCH (09:43)
[2018-04-01] MEDS: CLOPIDOGREL 75 MG TABLET PO SCH (09:43)
[2018-04-01] MEDS: POLYETHYLENE GLYCOL POWDER 17 GM PACK PO SCH (09:43)
[2018-04-01] MEDS: POTASSIUM CHLORIDE 20 MEQ TABLET PO SCH (09:43)
[2018-04-01] MEDS: DOXAZOSIN 1 MG TABLET PO SCH (09:46)
[2018-04-01] MEDS: PANTOPRAZOLE 40 MG VIAL IV SCH (09:58)
[2018-04-01 12:13] VITALS: BP 112/56
[2018-04-04] MEDS ORDERED: cloNIDine 0.2 MG/24 HR PATCH TRANSDERM SCH (09:00)
== END 2018-04-01 14:30 | disposition swing bed (61) | DRG 58 ==
LOC: N.ED 15:14 → SUATTDRO 18:49 → N.EDINP 18:49 → N.CC 21:18 → N.TELES 03-24 12:28
PROVIDERS: ADMIT Internal Medicine; ATTEND Internal Medicine Geriatric Medicine

== ENCOUNTER 2018-05-01 11:11 | Inpatient (IN) ==
[2018-05-01] MEDS ORDERED: SODIUM CHLORIDE 0.9% 500 ML IV STA (11:35)
[2018-05-01] MEDS ORDERED: ONDANSETRON 4 MG/2 ML VIAL IV STA (11:35)
[2018-05-01] MEDS ORDERED: INSULIN REGULAR 100 UNIT/ML SUBCUT STA (11:35)
[2018-05-01 12:37] LABS: Basophils % 0.2 % (0.0-0.8); Hematocrit 24.1 VOL% (35.7-47.0); Hemoglobin 7.7 GM/DL (12.0-16.0); Immature Granulocytes % 0.8 %; Lymphocytes # 1.9 10*3/uL (1.4-4.0); Lymphocytes % 14.2 % (21.3-54.2); Mean Corpuscular Hemoglobin 31 PG (27-34); Mean Corpuscular Volume 98.4 FL (87-102); Mean Platelet Volume 10.4 FL (9.6-12.0); Monocytes # 0.5 10*3/uL (0.11-0.8); Neutrophils # 10.7 10*3/uL (1.4-7.4); Neutrophils % 80.8 % (38.7-73.9); Platelet Count 599 T/CUMM (130-400); Red Blood Count 2.45 MC/CUMM (3.8-5.5); Red Cell Distribution Width 14.9 % (9.3-17.3); White Blood Count 13.3 T/CUMM (4-12)
[2018-05-01 12:52] LABS: Osmolality,Calculated 296.4 MOS/KG (273-304); Potassium 5.2 MMOL/L (3.5-5.1)
[2018-05-01] MEDS ORDERED: cloNIDine 0.1 MG TABLET PO STA (13:01)
[2018-05-01] MEDS ORDERED: ACETAMINOPHEN 325 MG TABLET PO PRN (13:24)
[2018-05-01] MEDS ORDERED: GLUCAGON 1 MG VIAL IM PRN (13:26)
[2018-05-01] MEDS ORDERED: DEXTROSE 50% 25 GM/50 ML VIAL IV PRN (13:26)
[2018-05-01] MEDS ORDERED: ENOXAPARIN 40 MG/0.4 ML SYRINGE SUBCUT SCH (13:30)
[2018-05-01 13:44] LABS: Albumin 2.9 G/DL (3.4-5.0); Bilirubin,Direct 0.19 MG/DL (0.0-0.20); Bilirubin,Indirect 0.3 MG/DL (0.0-1.0); Bilirubin,Total 0.5 MG/DL (0.2-1.0); Total Protein 8.4 G/DL (6.4-8.3)
[2018-05-01] MEDS ORDERED: NITROGLYCERIN SL 0.4 MG TABLET SL PRN (14:17)
[2018-05-01] MEDS ORDERED: LACTULOSE 20 GM/30 ML UDCUP PO PRN (14:17)
[2018-05-01] MEDS: SODIUM CHLORIDE 0.45% 1,000 ML IV SCH ×2 (15:46→23:46)
[2018-05-01] MEDS: ONDANSETRON 4 MG/2 ML VIAL IV PRN ×2 (15:51→21:25)
[2018-05-01] MEDS: cloNIDine 0.2 MG/24 HR PATCH TRANSDERM SCH (15:53)
[2018-05-01] MEDS: METOCLOPRAMIDE 5 MG TABLET PO SCH (16:11)
[2018-05-01] MEDS: niCARdipine INJ 25 MG in SODIUM CHLORIDE 0.9% 240 ML IV PRN ×2 (16:42→21:00)
[2018-05-01 16:46] LABS: Amorphous Crystals,Urine Occasional /HPF (Few); Apearance,Urine CLOUDY (Clear); Bacteria,Urine Many /HPF (Few); Bilirubin,Urine Negative (Negative); Blood, Urine Negative (Negative); Glucose,Urine (UA) 50 mg/dL (Negative); Ketones,Urine 5 mg/dL (Negative); Nitrite,Urine Negative (Negative); Protein,Urine >=500 MG/DL; RBC,Urine 6 /HPF (0-4); Squamous Epithelial Cell,Urine Occasional /HPF (0-10); Urine Color Yellow (Yellow); Urine Specific Gravity 1.008 (1.001-1.035); Urine Urobilinogen < 2.0 EU/DL (0.2-1.0); WBC,Urine 235 /HPF (0-6)
[2018-05-01 16:50] LABS: Calcium 9.8 MG/DL (8.5-10.1); Osmolality,Calculated 295.8 MOS/KG (273-304); Potassium 3.7 MMOL/L (3.5-5.1)
[2018-05-01] MEDS ORDERED: DEXTROSE 50% 25 GM/50 ML SYRINGE IV PRN (18:00)
[2018-05-01] MEDS: INSULIN LISPRO 100 UNIT/ML SUBCUT SCH (18:18)
[2018-05-01] MEDS: CARVEDILOL 25 MG TABLET PO SCH (20:39)
[2018-05-01] MEDS: PHENYTOIN ER 100 MG CAPSULE PO SCH (20:39)
[2018-05-01] MEDS: ASCORBIC ACID 500 MG TABLET PO SCH (20:39)
[2018-05-01] MEDS: DOXAZOSIN 1 MG TABLET PO SCH (20:39)
[2018-05-01] MEDS: GABAPENTIN 300 MG CAPSULE PO SCH (20:39)
[2018-05-01] MEDS: SIMVASTATIN 20 MG TABLET PO SCH (20:39)
[2018-05-01] MEDS: niCARdipine INJ 50 MG in SODIUM CHLORIDE 0.9% 480 ML IV PRN (21:00)
[2018-05-01] MEDS: INSULIN GLARGINE 100 UNIT/ML SUBCUT SCH (23:04)
[2018-05-02] MEDS: INSULIN LISPRO 100 UNIT/ML SUBCUT SCH ×4 (00:32→17:18)
[2018-05-02] MEDS: SODIUM CHLORIDE 0.45% 1,000 ML IV SCH ×5 (01:58→23:24)
[2018-05-02] MEDS: niCARdipine INJ 50 MG in SODIUM CHLORIDE 0.9% 480 ML IV PRN ×3 (02:47→18:59)
[2018-05-02] MEDS: ONDANSETRON 4 MG/2 ML VIAL IV PRN ×3 (05:40→22:19)
[2018-05-02 05:53] LABS: Calcium 8.9 MG/DL (8.5-10.1); Osmolality,Calculated 296.7 MOS/KG (273-304); Potassium 3.6 MMOL/L (3.5-5.1)
[2018-05-02 06:05] LABS: Basophils % 0.1 % (0.0-0.8); Eosinophils % 0.1 % (0.00-10.9); Hematocrit 20.7 VOL% (35.7-47.0); Hemoglobin 6.5 GM/DL (12.0-16.0); Immature Granulocytes % 0.7 %; Lymphocytes # 1.8 10*3/uL (1.4-4.0); Mean Corpuscular HGB Conc 31.4 GM/DL (32-36); Mean Corpuscular Hemoglobin 31 PG (27-34); Mean Platelet Volume 10.5 FL (9.6-12.0); Monocytes # 0.9 10*3/uL (0.11-0.8); Monocytes % 6.8 % (1.7-12.7); Neutrophils # 10.8 10*3/uL (1.4-7.4); Neutrophils % 79.3 % (38.7-73.9); Platelet Count 535 T/CUMM (130-400); Red Blood Count 2.07 MC/CUMM (3.8-5.5); Red Cell Distribution Width 15.3 % (9.3-17.3); White Blood Count 13.6 T/CUMM (4-12)
[2018-05-02] MEDS ORDERED: SODIUM CHLORIDE 0.9% 1,000 ML IV PRN (07:37)
[2018-05-02] MEDS ORDERED: FUROSEMIDE 40 MG/4 ML VIAL IV ONE (07:38)
[2018-05-02] MEDS: LEVOFLOXACIN INJ 500 MG in PREMIX 1 EACH IV SCH (08:55)
[2018-05-02] MEDS: ASPIRIN EC 81 MG TABLET PO SCH (10:57)
[2018-05-02] MEDS: CITALOPRAM 20 MG TABLET PO SCH (10:58)
[2018-05-02] MEDS: CARVEDILOL 25 MG TABLET PO SCH ×2 (10:58→22:09)
[2018-05-02] MEDS: CLOPIDOGREL 75 MG TABLET PO SCH (10:58)
[2018-05-02] MEDS: METOCLOPRAMIDE 5 MG TABLET PO SCH ×2 (10:58→17:11)
[2018-05-02] MEDS: DOXAZOSIN 1 MG TABLET PO SCH ×2 (10:58→22:09)
[2018-05-02] MEDS: ISOSORBIDE MONONITRATE 60 MG TABLET PO SCH (10:58)
[2018-05-02] MEDS: VENLAFAXINE XR 75 MG CAPSULE PO SCH (10:58)
[2018-05-02] MEDS: ASCORBIC ACID 500 MG TABLET PO SCH ×2 (10:58→22:09)
[2018-05-02] MEDS: POTASSIUM CHLORIDE 20 MEQ TABLET PO SCH (10:59)
[2018-05-02] MEDS: POLYETHYLENE GLYCOL POWDER 17 GM PACK PO SCH (10:59)
[2018-05-02] MEDS: TORSEMIDE 20 MG TABLET PO SCH (10:59)
[2018-05-02] MEDS ORDERED: FUROSEMIDE 40 MG/4 ML VIAL ONE (14:05)
[2018-05-02] MEDS ORDERED: ALBUTEROL/IPRATROPIUM 3 ML NEB RESP TX PRN (14:23)
[2018-05-02 18:46] LABS: Hematocrit 25.8 VOL% (35.7-47.0)
[2018-05-02 18:47] LABS: Hemoglobin 8.2 GM/DL (12.0-16.0)
[2018-05-02] MEDS: PHENYTOIN ER 100 MG CAPSULE PO SCH (22:08)
[2018-05-02] MEDS: SIMVASTATIN 20 MG TABLET PO SCH (22:09)
[2018-05-02] MEDS: GABAPENTIN 300 MG CAPSULE PO SCH (22:09)
[2018-05-02] MEDS: INSULIN GLARGINE 100 UNIT/ML SUBCUT SCH (22:10)
[2018-05-03] MEDS: niCARdipine INJ 50 MG in SODIUM CHLORIDE 0.9% 480 ML IV PRN ×3 (00:21→14:51)
[2018-05-03] MEDS: INSULIN LISPRO 100 UNIT/ML SUBCUT SCH ×4 (01:46→18:07)
[2018-05-03] MEDS: SODIUM CHLORIDE 0.45% 1,000 ML IV SCH ×3 (03:58→13:32)
[2018-05-03 04:17] LABS: Basophils % 0.2 % (0.0-0.8); Eosinophils # 0.1 10*3/uL (0.0-0.87); Eosinophils % 0.5 % (0.00-10.9); Hematocrit 25.5 VOL% (35.7-47.0); Immature Granulocytes % 0.6 %; Immature Granulocytes Absolute 0.07 #; Lymphocytes # 1.8 10*3/uL (1.4-4.0); Lymphocytes % 15.4 % (21.3-54.2); Mean Corpuscular HGB Conc 31.4 GM/DL (32-36); Mean Corpuscular Hemoglobin 30 PG (27-34); Mean Corpuscular Volume 94.1 FL (87-102); Mean Platelet Volume 10.2 FL (9.6-12.0); Monocytes # 1.1 10*3/uL (0.11-0.8); Monocytes % 9.5 % (1.7-12.7); Neutrophils # 8.8 10*3/uL (1.4-7.4); Neutrophils % 73.8 % (38.7-73.9); Platelet Count 440 T/CUMM (130-400); Red Blood Count 2.71 MC/CUMM (3.8-5.5); Red Cell Distribution Width 19.4 % (9.3-17.3); White Blood Count 11.9 T/CUMM (4-12)
[2018-05-03 04:47] LABS: Calcium 8.1 MG/DL (8.5-10.1); Potassium 3.3 MMOL/L (3.5-5.1)
[2018-05-03] MEDS: METOCLOPRAMIDE 5 MG TABLET PO SCH ×2 (07:26→16:31)
[2018-05-03] MEDS: LEVOFLOXACIN INJ 500 MG in PREMIX 1 EACH IV SCH (08:50)
[2018-05-03] MEDS ORDERED: PROPOFOL 200 MG/20 ML VIAL IV ONE (10:00)
[2018-05-03] MEDS ORDERED: LIDOCAINE 2% 5 ML VIAL ONE (10:00)
[2018-05-03] MEDS: DOXAZOSIN 1 MG TABLET PO SCH (13:33)
[2018-05-03] MEDS: VENLAFAXINE XR 75 MG CAPSULE PO SCH (14:24)
[2018-05-03] MEDS: POLYETHYLENE GLYCOL POWDER 17 GM PACK PO SCH (14:32)
[2018-05-03] MEDS: ASCORBIC ACID 500 MG TABLET PO SCH ×2 (14:32→21:46)
[2018-05-03] MEDS: ASPIRIN EC 81 MG TABLET PO SCH (14:32)
[2018-05-03] MEDS: CLOPIDOGREL 75 MG TABLET PO SCH (14:33)
[2018-05-03] MEDS: POTASSIUM CHLORIDE 20 MEQ TABLET PO SCH ×2 (14:33)
[2018-05-03] MEDS: CARVEDILOL 25 MG TABLET PO SCH ×2 (14:33→21:47)
[2018-05-03] MEDS: ISOSORBIDE MONONITRATE 60 MG TABLET PO SCH (14:33)
[2018-05-03] MEDS: CITALOPRAM 20 MG TABLET PO SCH (14:33)
[2018-05-03] MEDS: TORSEMIDE 20 MG TABLET PO SCH (15:25)
[2018-05-03] MEDS: INSULIN GLARGINE 100 UNIT/ML SUBCUT SCH (21:45)
[2018-05-03] MEDS: DOXAZOSIN 4 MG TABLET PO SCH (21:46)
[2018-05-03] MEDS: GABAPENTIN 300 MG CAPSULE PO SCH (21:46)
[2018-05-03] MEDS: PHENYTOIN ER 100 MG CAPSULE PO SCH (21:46)
[2018-05-03] MEDS: SIMVASTATIN 20 MG TABLET PO SCH (21:47)
[2018-05-04] MEDS: SODIUM CHLORIDE 0.45% 1,000 ML IV SCH ×3 (01:10→19:17)
[2018-05-04] MEDS: INSULIN LISPRO 100 UNIT/ML SUBCUT SCH ×5 (01:53→23:46)
[2018-05-04 03:46] LABS: Basophils % 0.1 % (0.0-0.8); Eosinophils # 0.1 10*3/uL (0.0-0.87); Eosinophils % 1.4 % (0.00-10.9); Hematocrit 24.4 VOL% (35.7-47.0); Hemoglobin 7.8 GM/DL (12.0-16.0); Immature Granulocytes % 0.4 %; Immature Granulocytes Absolute 0.04 #; Lymphocytes % 20.9 % (21.3-54.2); Mean Corpuscular Hemoglobin 30 PG (27-34); Mean Corpuscular Volume 94.2 FL (87-102); Mean Platelet Volume 9.7 FL (9.6-12.0); Monocytes # 0.9 10*3/uL (0.11-0.8); Monocytes % 9.8 % (1.7-12.7); Neutrophils # 6.3 10*3/uL (1.4-7.4); Neutrophils % 67.4 % (38.7-73.9); Platelet Count 412 T/CUMM (130-400); Red Blood Count 2.59 MC/CUMM (3.8-5.5); Red Cell Distribution Width 19.2 % (9.3-17.3); White Blood Count 9.3 T/CUMM (4-12)
[2018-05-04 04:04] LABS: Calcium 7.5 MG/DL (8.5-10.1); Osmolality,Calculated 284.3 MOS/KG (273-304); Potassium 3.4 MMOL/L (3.5-5.1)
[2018-05-04 04:06] LABS: Albumin 2.2 G/DL (3.4-5.0); Total Protein 5.7 G/DL (6.4-8.3)
[2018-05-04 07:31] LABS: Protein/Creatinine Ratio,Urine 3.5 RATIO
[2018-05-04] MEDS: LEVOFLOXACIN INJ 500 MG in PREMIX 1 EACH IV SCH (08:25)
[2018-05-04] MEDS: ASCORBIC ACID 500 MG TABLET PO SCH ×2 (08:26→20:34)
[2018-05-04] MEDS: TORSEMIDE 20 MG TABLET PO SCH (08:26)
[2018-05-04] MEDS: CLOPIDOGREL 75 MG TABLET PO SCH (08:26)
[2018-05-04] MEDS: POTASSIUM CHLORIDE 20 MEQ TABLET PO SCH ×4 (08:26→15:34)
[2018-05-04] MEDS: POLYETHYLENE GLYCOL POWDER 17 GM PACK PO SCH (08:26)
[2018-05-04] MEDS: DOXAZOSIN 4 MG TABLET PO SCH ×2 (08:26→20:35)
[2018-05-04] MEDS: ASPIRIN EC 81 MG TABLET PO SCH (08:27)
[2018-05-04] MEDS: VENLAFAXINE XR 75 MG CAPSULE PO SCH (08:27)
[2018-05-04] MEDS: ISOSORBIDE MONONITRATE 60 MG TABLET PO SCH (08:27)
[2018-05-04] MEDS: METOCLOPRAMIDE 5 MG TABLET PO SCH ×2 (08:27→15:34)
[2018-05-04] MEDS: CITALOPRAM 20 MG TABLET PO SCH (08:27)
[2018-05-04] MEDS: CARVEDILOL 25 MG TABLET PO SCH ×2 (08:27→20:35)
[2018-05-04] MEDS: MAGNESIUM SULFATE 1 GM/2 ML VIAL IM SCH ×3 (12:00→23:15)
[2018-05-04] MEDS: GABAPENTIN 300 MG CAPSULE PO SCH (20:34)
[2018-05-04] MEDS: SIMVASTATIN 20 MG TABLET PO SCH (20:35)
[2018-05-04] MEDS: PHENYTOIN ER 100 MG CAPSULE PO SCH (20:35)
[2018-05-04] MEDS: INSULIN GLARGINE 100 UNIT/ML SUBCUT SCH (20:36)
[2018-05-05 04:49] LABS: Basophils % 0.2 % (0.0-0.8); Eosinophils # 0.1 10*3/uL (0.0-0.87); Eosinophils % 1.4 % (0.00-10.9); Hematocrit 24.5 VOL% (35.7-47.0); Hemoglobin 7.8 GM/DL (12.0-16.0); Immature Granulocytes % 0.6 %; Immature Granulocytes Absolute 0.06 #; Lymphocytes # 1.5 10*3/uL (1.4-4.0); Lymphocytes % 14.8 % (21.3-54.2); Mean Corpuscular HGB Conc 31.8 GM/DL (32-36); Mean Corpuscular Hemoglobin 30 PG (27-34); Mean Corpuscular Volume 93.2 FL (87-102); Mean Platelet Volume 10.1 FL (9.6-12.0); Monocytes # 0.9 10*3/uL (0.11-0.8); Neutrophils # 7.4 10*3/uL (1.4-7.4); Platelet Count 421 T/CUMM (130-400); Red Blood Count 2.63 MC/CUMM (3.8-5.5); Red Cell Distribution Width 18.6 % (9.3-17.3)
[2018-05-05 05:04] LABS: Calcium 7.7 MG/DL (8.5-10.1); Osmolality,Calculated 277.5 MOS/KG (273-304); Potassium 3.6 MMOL/L (3.5-5.1)
[2018-05-05] MEDS: SODIUM CHLORIDE 0.45% 1,000 ML IV SCH (06:13)
[2018-05-05] MEDS: INSULIN LISPRO 100 UNIT/ML SUBCUT SCH ×3 (06:14→18:10)
[2018-05-05] MEDS: ASPIRIN EC 81 MG TABLET PO SCH (08:38)
[2018-05-05] MEDS: ISOSORBIDE MONONITRATE 60 MG TABLET PO SCH (08:38)
[2018-05-05] MEDS: CARVEDILOL 25 MG TABLET PO SCH ×2 (08:38→20:36)
[2018-05-05] MEDS: CLOPIDOGREL 75 MG TABLET PO SCH (08:38)
[2018-05-05] MEDS: ASCORBIC ACID 500 MG TABLET PO SCH ×2 (08:38→20:37)
[2018-05-05] MEDS: DOXAZOSIN 4 MG TABLET PO SCH ×2 (08:38→20:36)
[2018-05-05] MEDS: CITALOPRAM 20 MG TABLET PO SCH (08:38)
[2018-05-05] MEDS: METOCLOPRAMIDE 5 MG TABLET PO SCH ×2 (08:38→15:46)
[2018-05-05] MEDS: POTASSIUM CHLORIDE 20 MEQ TABLET PO SCH (08:38)
[2018-05-05] MEDS: VENLAFAXINE XR 75 MG CAPSULE PO SCH (08:38)
[2018-05-05] MEDS: LEVOFLOXACIN 500 MG TABLET PO SCH (08:39)
[2018-05-05] MEDS: POLYETHYLENE GLYCOL POWDER 17 GM PACK PO SCH ×2 (08:39→08:51)
[2018-05-05] MEDS: TORSEMIDE 20 MG TABLET PO SCH (08:41)
[2018-05-05] MEDS: hydrALAZINE 20 MG/1 ML VIAL IV PRN ×2 (12:04→18:03)
[2018-05-05] MEDS: PHENYTOIN ER 100 MG CAPSULE PO SCH (20:36)
[2018-05-05] MEDS: SIMVASTATIN 20 MG TABLET PO SCH (20:37)
[2018-05-05] MEDS: GABAPENTIN 300 MG CAPSULE PO SCH (20:37)
[2018-05-05] MEDS: INSULIN GLARGINE 100 UNIT/ML SUBCUT SCH (21:02)
[2018-05-06] MEDS: hydrALAZINE 20 MG/1 ML VIAL IV PRN (00:15)
[2018-05-06] MEDS: INSULIN LISPRO 100 UNIT/ML SUBCUT SCH ×4 (01:37→17:52)
[2018-05-06 04:53] LABS: Basophils % 0.3 % (0.0-0.8); Eosinophils # 0.1 10*3/uL (0.0-0.87); Eosinophils % 1.4 % (0.00-10.9); Hematocrit 26.5 VOL% (35.7-47.0); Hemoglobin 8.5 GM/DL (12.0-16.0); Immature Granulocytes % 0.5 %; Immature Granulocytes Absolute 0.05 #; Lymphocytes # 1.1 10*3/uL (1.4-4.0); Lymphocytes % 11.9 % (21.3-54.2); Mean Corpuscular HGB Conc 32.1 GM/DL (32-36); Mean Corpuscular Hemoglobin 30 PG (27-34); Mean Corpuscular Volume 93.6 FL (87-102); Mean Platelet Volume 10.3 FL (9.6-12.0); Monocytes # 0.9 10*3/uL (0.11-0.8); Monocytes % 9.3 % (1.7-12.7); Neutrophils # 7.3 10*3/uL (1.4-7.4); Neutrophils % 76.6 % (38.7-73.9); Platelet Count 441 T/CUMM (130-400); Red Blood Count 2.83 MC/CUMM (3.8-5.5); Red Cell Distribution Width 18.4 % (9.3-17.3); White Blood Count 9.5 T/CUMM (4-12)
[2018-05-06 05:34] LABS: Calcium 8.1 MG/DL (8.5-10.1); Osmolality,Calculated 279.3 MOS/KG (273-304); Potassium 3.5 MMOL/L (3.5-5.1)
[2018-05-06] MEDS: TORSEMIDE 20 MG TABLET PO SCH (08:23)
[2018-05-06] MEDS: ASCORBIC ACID 500 MG TABLET PO SCH ×2 (08:23→20:13)
[2018-05-06] MEDS: CARVEDILOL 25 MG TABLET PO SCH ×2 (08:23→20:13)
[2018-05-06] MEDS: METOCLOPRAMIDE 5 MG TABLET PO SCH ×2 (08:23→15:55)
[2018-05-06] MEDS: ISOSORBIDE MONONITRATE 60 MG TABLET PO SCH (08:24)
[2018-05-06] MEDS: LEVOFLOXACIN 500 MG TABLET PO SCH (08:24)
[2018-05-06] MEDS: CITALOPRAM 20 MG TABLET PO SCH (08:24)
[2018-05-06] MEDS: DOXAZOSIN 4 MG TABLET PO SCH ×2 (08:24→20:11)
[2018-05-06] MEDS: CLOPIDOGREL 75 MG TABLET PO SCH (08:24)
[2018-05-06] MEDS: VENLAFAXINE XR 75 MG CAPSULE PO SCH (08:24)
[2018-05-06] MEDS: ASPIRIN EC 81 MG TABLET PO SCH (08:25)
[2018-05-06] MEDS: POLYETHYLENE GLYCOL POWDER 17 GM PACK PO SCH (08:29)
[2018-05-06] MEDS: POTASSIUM CHLORIDE 20 MEQ TABLET PO SCH (08:32)
[2018-05-06] MEDS: LOSARTAN 50 MG TABLET PO SCH (10:21)
[2018-05-06] MEDS: PANTOPRAZOLE 40 MG TABLET PO SCH ×2 (15:55→20:12)
[2018-05-06] MEDS: GABAPENTIN 300 MG CAPSULE PO SCH (20:12)
[2018-05-06] MEDS: PHENYTOIN ER 100 MG CAPSULE PO SCH (20:12)
[2018-05-06] MEDS: SIMVASTATIN 20 MG TABLET PO SCH (20:12)
[2018-05-06] MEDS: INSULIN GLARGINE 100 UNIT/ML SUBCUT SCH (20:32)
[2018-05-07] MEDS: INSULIN LISPRO 100 UNIT/ML SUBCUT SCH ×5 (00:57→23:45)
[2018-05-07] MEDS: VENLAFAXINE XR 75 MG CAPSULE PO SCH (08:58)
[2018-05-07] MEDS: ISOSORBIDE MONONITRATE 60 MG TABLET PO SCH (08:58)
[2018-05-07] MEDS: METOCLOPRAMIDE 5 MG TABLET PO SCH ×2 (08:58→15:32)
[2018-05-07] MEDS: PANTOPRAZOLE 40 MG TABLET PO SCH ×2 (08:59→20:38)
[2018-05-07] MEDS: LEVOFLOXACIN 500 MG TABLET PO SCH (08:59)
[2018-05-07] MEDS: ASPIRIN EC 81 MG TABLET PO SCH (08:59)
[2018-05-07] MEDS: LOSARTAN 50 MG TABLET PO SCH (08:59)
[2018-05-07] MEDS: CLOPIDOGREL 75 MG TABLET PO SCH (08:59)
[2018-05-07] MEDS: POTASSIUM CHLORIDE 20 MEQ TABLET PO SCH (08:59)
[2018-05-07] MEDS: CITALOPRAM 20 MG TABLET PO SCH (09:00)
[2018-05-07] MEDS: DOXAZOSIN 4 MG TABLET PO SCH ×2 (09:00→20:38)
[2018-05-07] MEDS: CARVEDILOL 25 MG TABLET PO SCH ×2 (09:00→20:38)
[2018-05-07] MEDS: TORSEMIDE 20 MG TABLET PO SCH (09:00)
[2018-05-07] MEDS: POLYETHYLENE GLYCOL POWDER 17 GM PACK PO SCH (09:01)
[2018-05-07] MEDS: ASCORBIC ACID 500 MG TABLET PO SCH ×2 (09:01→20:37)
[2018-05-07] MEDS: SIMVASTATIN 20 MG TABLET PO SCH (20:37)
[2018-05-07] MEDS: INSULIN GLARGINE 100 UNIT/ML SUBCUT SCH (20:37)
[2018-05-07] MEDS: PHENYTOIN ER 100 MG CAPSULE PO SCH (20:37)
[2018-05-07] MEDS: GABAPENTIN 300 MG CAPSULE PO SCH (20:38)
[2018-05-08] MEDS: INSULIN LISPRO 100 UNIT/ML SUBCUT SCH ×3 (05:35→18:48)
[2018-05-08] MEDS: DOXAZOSIN 4 MG TABLET PO SCH ×2 (08:07→21:29)
[2018-05-08] MEDS: VENLAFAXINE XR 75 MG CAPSULE PO SCH (08:08)
[2018-05-08] MEDS: METOCLOPRAMIDE 5 MG TABLET PO SCH ×2 (08:08→16:14)
[2018-05-08] MEDS: ASCORBIC ACID 500 MG TABLET PO SCH ×2 (08:09→21:31)
[2018-05-08] MEDS: TORSEMIDE 20 MG TABLET PO SCH (08:11)
[2018-05-08] MEDS: CLOPIDOGREL 75 MG TABLET PO SCH (08:11)
[2018-05-08] MEDS: LOSARTAN 50 MG TABLET PO SCH (08:13)
[2018-05-08] MEDS: PANTOPRAZOLE 40 MG TABLET PO SCH ×2 (08:13→21:31)
[2018-05-08] MEDS: CITALOPRAM 20 MG TABLET PO SCH (08:14)
[2018-05-08] MEDS: ISOSORBIDE MONONITRATE 60 MG TABLET PO SCH (08:14)
[2018-05-08] MEDS: LEVOFLOXACIN 500 MG TABLET PO SCH (08:15)
[2018-05-08] MEDS: CARVEDILOL 25 MG TABLET PO SCH ×2 (08:15→21:29)
[2018-05-08] MEDS: POTASSIUM CHLORIDE 20 MEQ TABLET PO SCH (08:15)
[2018-05-08] MEDS: cloNIDine 0.2 MG/24 HR PATCH TRANSDERM SCH (08:17)
[2018-05-08] MEDS: POLYETHYLENE GLYCOL POWDER 17 GM PACK PO SCH (08:19)
[2018-05-08] MEDS: ASPIRIN EC 81 MG TABLET PO SCH (11:36)
[2018-05-08] MEDS: PHENYTOIN ER 100 MG CAPSULE PO SCH (21:29)
[2018-05-08] MEDS: GABAPENTIN 300 MG CAPSULE PO SCH (21:30)
[2018-05-08] MEDS: SIMVASTATIN 20 MG TABLET PO SCH (21:31)
[2018-05-08] MEDS: INSULIN GLARGINE 100 UNIT/ML SUBCUT SCH (21:49)
[2018-05-09] MEDS: INSULIN LISPRO 100 UNIT/ML SUBCUT SCH ×3 (01:42→12:31)
[2018-05-09 05:00] LABS: Basophils % 0.1 % (0.0-0.8); Eosinophils # 0.2 10*3/uL (0.0-0.87); Hematocrit 26.6 VOL% (35.7-47.0); Hemoglobin 8.4 GM/DL (12.0-16.0); Immature Granulocytes % 0.5 %; Immature Granulocytes Absolute 0.04 #; Lymphocytes # 1.5 10*3/uL (1.4-4.0); Lymphocytes % 18.8 % (21.3-54.2); Mean Corpuscular HGB Conc 31.6 GM/DL (32-36); Mean Corpuscular Hemoglobin 30 PG (27-34); Monocytes # 1.1 10*3/uL (0.11-0.8); Monocytes % 13.5 % (1.7-12.7); Neutrophils # 5.2 10*3/uL (1.4-7.4); Neutrophils % 65.1 % (38.7-73.9); Platelet Count 382 T/CUMM (130-400); Red Blood Count 2.83 MC/CUMM (3.8-5.5); Red Cell Distribution Width 18.2 % (9.3-17.3); White Blood Count 7.9 T/CUMM (4-12)
[2018-05-09 05:15] LABS: Calcium 8.3 MG/DL (8.5-10.1); Osmolality,Calculated 282.3 MOS/KG (273-304); Potassium 3.5 MMOL/L (3.5-5.1)
[2018-05-09] MEDS ORDERED: MAGNESIUM SULF RIDER 4 GM in PREMIX 1 EACH IV PRN (08:18)
[2018-05-09] MEDS ORDERED: MAGNESIUM SULF RIDER 2 GM in PREMIX 1 EACH IV PRN (08:18)
[2018-05-09] MEDS: CITALOPRAM 20 MG TABLET PO SCH (09:43)
[2018-05-09] MEDS: ASCORBIC ACID 500 MG TABLET PO SCH (09:43)
[2018-05-09] MEDS: CARVEDILOL 25 MG TABLET PO SCH (09:43)
[2018-05-09] MEDS: VENLAFAXINE XR 75 MG CAPSULE PO SCH (09:43)
[2018-05-09] MEDS: DOXAZOSIN 4 MG TABLET PO SCH (09:43)
[2018-05-09] MEDS: CLOPIDOGREL 75 MG TABLET PO SCH (09:43)
[2018-05-09] MEDS: METOCLOPRAMIDE 5 MG TABLET PO SCH (09:43)
[2018-05-09] MEDS: LOSARTAN 50 MG TABLET PO SCH (09:43)
[2018-05-09] MEDS: POTASSIUM CHLORIDE 20 MEQ TABLET PO SCH (09:44)
[2018-05-09] MEDS: POLYETHYLENE GLYCOL POWDER 17 GM PACK PO SCH (09:44)
[2018-05-09] MEDS: ISOSORBIDE MONONITRATE 60 MG TABLET PO SCH (09:44)
[2018-05-09] MEDS: PANTOPRAZOLE 40 MG TABLET PO SCH (09:44)
[2018-05-09] MEDS: ASPIRIN EC 81 MG TABLET PO SCH (09:44)
[2018-05-09] MEDS: TORSEMIDE 20 MG TABLET PO SCH (09:45)
[2018-05-09 12:29] VITALS: BP 160/86
== END 2018-05-09 12:37 | disposition home health service (06) | DRG 199 ==
LOC: N.ED 11:11 → SUATTDRO 13:24 → N.EDINP 13:24 → N.ICU 15:11
PROVIDERS: ADMIT Internal Medicine; ATTEND Internal Medicine

== ENCOUNTER 2018-06-10 13:56 | Inpatient (IN) ==
[2018-06-10 16:48] LABS: Basophils % 0.1 % (0.0-0.8); Eosinophils % 0.4 % (0.00-10.9); Hemoglobin 7.5 GM/DL (12.0-16.0); Immature Granulocytes % 0.4 %; Immature Granulocytes Absolute 0.03 #; Lymphocytes # 1.2 10*3/uL (1.4-4.0); Lymphocytes % 14.4 % (21.3-54.2); Mean Corpuscular HGB Conc 31.3 GM/DL (32-36); Mean Corpuscular Volume 100.8 FL (87-102); Mean Platelet Volume 10.2 FL (9.6-12.0); Monocytes % 9.6 % (1.7-12.7); Neutrophils % 75.1 % (38.7-73.9); Platelet Count 361 T/CUMM (130-400); Red Blood Count 2.38 MC/CUMM (3.8-5.5); Red Cell Distribution Width 21.2 % (9.3-17.3); White Blood Count 8.1 T/CUMM (4-12)
[2018-06-10 17:15] LABS: Alanine Aminotransferase 61 U/L (13-56); Albumin 2.3 G/DL (3.4-5.0); Alkaline Phosphatase 785 U/L (45-117); Aspartate Amino Transferase 42 U/L (0-37); Bilirubin,Total < 0.39 MG/DL (0.2-1.0); Blood Urea Nitrogen 22 MG/DL (7-18); Calcium 8.6 MG/DL (8.5-10.1); Glucose 350 MG/DL (74-106); Osmolality,Calculated 291.7 MOS/KG (273-304); Total Protein 7.2 G/DL (6.4-8.3)
[2018-06-10 18:12] LABS: Apearance,Urine CLOUDY (Clear); Bacteria,Urine Many /HPF (Few); Bilirubin,Urine Negative (Negative); Blood, Urine Negative (Negative); Glucose,Urine (UA) Negative (Negative); Ketones,Urine Negative (Negative); Mucus,Urine Few /LPF (Occasional); Nitrite,Urine Negative (Negative); Protein,Urine 100 MG/DL; Urine Color Yellow (Yellow); Urine Specific Gravity 1.012 (1.001-1.035); Urine Urobilinogen < 2.0 EU/DL (0.2-1.0); WBC,Urine 880 /HPF (0-6)
[2018-06-10] MEDS ORDERED: SODIUM CHLORIDE 0.9% 1,000 ML IV STA (18:18)
[2018-06-10] MEDS ORDERED: GLUCAGON 1 MG VIAL IM PRN (20:10)
[2018-06-10] MEDS ORDERED: DEXTROSE 50% 25 GM/50 ML SYRINGE IV PRN (20:10)
[2018-06-10] MEDS ORDERED: SODIUM POLYSTYRENE SULFATE 15 GM/60 ML BOTTLE PO STA (20:19)
[2018-06-10] MEDS ORDERED: MECLIZINE 12.5 MG TABLET PO PRN (20:44)
[2018-06-10] MEDS ORDERED: ALBUTEROL/IPRATROPIUM 3 ML NEB RESP TX PRN (21:01)
[2018-06-10 21:15] LABS: Risk Ratio 3.21; Thyroid Stimulating Hormone 2.6 uIU/ml (0.358-3.74); VLDL CHOLESTEROL 21.8 MG/DL
[2018-06-10] MEDS ORDERED: LEVOFLOXACIN INJ 100 ML IV ONE (21:37)
[2018-06-10] MEDS ORDERED: LEVOFLOXACIN INJ 500 MG in PREMIX 1 EACH IV ONE (21:45)
[2018-06-10] MEDS: ONDANSETRON 4 MG/2 ML VIAL IV PRN (22:15)
[2018-06-10 22:41] LABS: Troponin I < 0.015 NG/ML (0.00-0.045)
[2018-06-10 23:29] LABS: Hepatitis B Core IgM Quant 0.13 Index; Hepatitis B Surface Ag Quant < 0.10 Index; Hepatitis B Surface Ag Result Negative (Negative); Hepatitis C Virus Ab Quant < 0.02 Index; Hepatitis C Virus Ab Result Negative (Negative)
[2018-06-10 23:49] LABS: INR 1.2; PT Patient Result 12.6 SECS; Partial Thromboplastin Time 25.9 SECS (0-40)
[2018-06-11] MEDS: SODIUM CHLORIDE 0.9% 1,000 ML IV SCH ×2 (00:54→14:28)
[2018-06-11] MEDS: INSULIN LISPRO 100 UNIT/ML SUBCUT SCH ×5 (01:30→21:44)
[2018-06-11 05:39] LABS: Bilirubin,Total 0.5 MG/DL (0.2-1.0); Calcium 8.6 MG/DL (8.5-10.1); Osmolality,Calculated 287.3 MOS/KG (273-304); Total Protein 6.3 G/DL (6.4-8.3)
[2018-06-11 05:44] LABS: Troponin I 0.028 NG/ML (0.00-0.045)
[2018-06-11 05:55] LABS: Basophils % 0.3 % (0.0-0.8); Eosinophils % 0.3 % (0.00-10.9); Hematocrit 22.8 VOL% (35.7-47.0); Hemoglobin 6.9 GM/DL (12.0-16.0); Immature Granulocytes % 0.4 %; Immature Granulocytes Absolute 0.03 #; Lymphocytes # 1.2 10*3/uL (1.4-4.0); Mean Corpuscular HGB Conc 30.3 GM/DL (32-36); Mean Corpuscular Volume 102.7 FL (87-102); Mean Platelet Volume 10.3 FL (9.6-12.0); Monocytes % 10.2 % (1.7-12.7); Neutrophils % 71.8 % (38.7-73.9); Platelet Count 334 T/CUMM (130-400); Red Blood Count 2.22 MC/CUMM (3.8-5.5); Red Cell Distribution Width 21.1 % (9.3-17.3); White Blood Count 6.8 T/CUMM (4-12)
[2018-06-11] MEDS ORDERED: SODIUM CHLORIDE 0.9% 1,000 ML IV PRN (07:15)
[2018-06-11] MEDS: cloNIDine 0.2 MG/24 HR PATCH TRANSDERM SCH (08:33)
[2018-06-11] MEDS: ISOSORBIDE MONONITRATE 60 MG TABLET PO SCH (08:34)
[2018-06-11] MEDS: LOSARTAN 50 MG TABLET PO SCH (08:34)
[2018-06-11] MEDS: ASCORBIC ACID 500 MG TABLET PO SCH ×2 (08:34→21:40)
[2018-06-11] MEDS: DOCUSATE SODIUM 100 MG CAPSULE PO SCH ×2 (08:35→21:41)
[2018-06-11] MEDS: CITALOPRAM 20 MG TABLET PO SCH (08:35)
[2018-06-11] MEDS: CARVEDILOL 25 MG TABLET PO SCH ×2 (08:35→16:23)
[2018-06-11] MEDS: PANTOPRAZOLE 40 MG TABLET PO SCH (08:35)
[2018-06-11 10:42] LABS: Troponin I 0.025 NG/ML (0.00-0.045)
[2018-06-11] MEDS ORDERED: SODIUM POLYSTYRENE SULFATE 15 GM/60 ML BOTTLE PO STA (10:56)
[2018-06-11] MEDS: DOXAZOSIN 4 MG TABLET PO SCH ×2 (11:11→21:40)
[2018-06-11] MEDS: VENLAFAXINE XR 75 MG CAPSULE PO SCH (11:12)
[2018-06-11] MEDS ORDERED: FUROSEMIDE 20 MG/2 ML VIAL IV ONE (12:00)
[2018-06-11] MEDS ORDERED: METHYL SALICYLATE 60 ML BOTTLE TOP PRN (13:54)
[2018-06-11] MEDS: hydrALAZINE 20 MG/1 ML VIAL IV PRN (16:22)
[2018-06-11] MEDS ORDERED: FUROSEMIDE 40 MG/4 ML VIAL IV ONE (17:28)
[2018-06-11 20:02] LABS: Hematocrit 27.7 VOL% (35.7-47.0); Hemoglobin 8.7 GM/DL (12.0-16.0)
[2018-06-11] MEDS: SIMVASTATIN 20 MG TABLET PO SCH (21:41)
[2018-06-11] MEDS: PHENYTOIN ER 100 MG CAPSULE PO SCH (21:41)
[2018-06-11] MEDS: GABAPENTIN 300 MG CAPSULE PO SCH (21:41)
[2018-06-11] MEDS: LEVOFLOXACIN INJ 250 MG in PREMIX 1 EACH IV SCH (21:43)
[2018-06-11] MEDS: INSULIN GLARGINE 100 UNIT/ML SUBCUT SCH (21:50)
[2018-06-12] MEDS: INSULIN LISPRO 100 UNIT/ML SUBCUT SCH ×4 (01:37→18:35)
[2018-06-12 03:48] LABS: Apearance,Urine CLOUDY (Clear); Bacteria,Urine Many /HPF (Few); Bilirubin,Urine Negative (Negative); Blood, Urine Negative (Negative); Glucose,Urine (UA) Negative (Negative); Hyaline Casts,Urine 2 /LPF (0-3); Ketones,Urine Negative (Negative); Mucus,Urine Occasional /LPF (Occasional); Nitrite,Urine Negative (Negative); Protein,Urine 100 MG/DL; Squamous Epithelial Cell,Urine Occasional /HPF (0-10); Urine Color Amber (Yellow); Urine Specific Gravity 1.009 (1.001-1.035); Urine Urobilinogen < 2.0 EU/DL (0.2-1.0); WBC,Urine 99 /HPF (0-6)
[2018-06-12 04:30] LABS: Basophils % 0.2 % (0.0-0.8); Eosinophils # 0.1 10*3/uL (0.0-0.87); Eosinophils % 0.9 % (0.00-10.9); Hematocrit 25.5 VOL% (35.7-47.0); Hemoglobin 8.2 GM/DL (12.0-16.0); Immature Granulocytes % 0.2 %; Immature Granulocytes Absolute 0.02 #; Lymphocytes # 1.3 10*3/uL (1.4-4.0); Lymphocytes % 16.2 % (21.3-54.2); Mean Corpuscular HGB Conc 32.2 GM/DL (32-36); Mean Platelet Volume 10.4 FL (9.6-12.0); Monocytes % 9.7 % (1.7-12.7); Neutrophils % 72.8 % (38.7-73.9); Platelet Count 320 T/CUMM (130-400); Red Blood Count 2.63 MC/CUMM (3.8-5.5); Red Cell Distribution Width 20.8 % (9.3-17.3); White Blood Count 8.1 T/CUMM (4-12)
[2018-06-12 05:05] LABS: % Iron Saturation 34.6 % (18-50); Ferritin 138.6 ng/ml (8-252)
[2018-06-12 05:12] LABS: Folate 7.2 NG/ML (5.4-24.0); Vitamin B12 555 PG/ML (211-911)
[2018-06-12] MEDS: hydrALAZINE 20 MG/1 ML VIAL IV PRN (06:40)
[2018-06-12 07:28] LABS: Anisocytosis 2+; Platelet Estimate Normal; Poikilocytosis Slight
[2018-06-12 07:29] LABS: Burr Cells Few; Macrocytosis Slight
[2018-06-12] MEDS: CARVEDILOL 25 MG TABLET PO SCH ×2 (07:40→15:59)
[2018-06-12 07:46] LABS: Sedimentation Rate-Westergren 60 MM/HR (0-30)
[2018-06-12] MEDS ORDERED: LIDOCAINE 2% 5 ML VIAL ONE (09:00)
[2018-06-12] MEDS ORDERED: LACTATED RINGERS 500 ML IV SCH (09:00)
[2018-06-12] MEDS ORDERED: PROPOFOL 200 MG/20 ML VIAL IV ONE (09:00)
[2018-06-12 09:18] LABS: Hemoglobin A1 (Alkaline) 97.1 % (96.5-98.5); Hemoglobin A2 (Alkaline) 2.9 % (1.5-3.5)
[2018-06-12] MEDS: DOXAZOSIN 4 MG TABLET PO SCH ×2 (10:14→21:59)
[2018-06-12] MEDS: ISOSORBIDE MONONITRATE 60 MG TABLET PO SCH (10:15)
[2018-06-12] MEDS: LOSARTAN 50 MG TABLET PO SCH (10:15)
[2018-06-12] MEDS: PANTOPRAZOLE 40 MG TABLET PO SCH ×2 (14:05→21:58)
[2018-06-12] MEDS: VENLAFAXINE XR 75 MG CAPSULE PO SCH (14:05)
[2018-06-12] MEDS: DOCUSATE SODIUM 100 MG CAPSULE PO SCH ×2 (14:05→21:58)
[2018-06-12] MEDS: ASCORBIC ACID 500 MG TABLET PO SCH ×2 (14:05→21:57)
[2018-06-12] MEDS: CITALOPRAM 20 MG TABLET PO SCH (14:05)
[2018-06-12] MEDS: LEVOFLOXACIN INJ 250 MG in PREMIX 1 EACH IV SCH (14:36)
[2018-06-12] MEDS: INSULIN GLARGINE 100 UNIT/ML SUBCUT SCH (21:55)
[2018-06-12] MEDS: SIMVASTATIN 20 MG TABLET PO SCH (21:57)
[2018-06-12] MEDS: PHENYTOIN ER 100 MG CAPSULE PO SCH (21:57)
[2018-06-12] MEDS: GABAPENTIN 300 MG CAPSULE PO SCH (21:58)
[2018-06-13] MEDS: INSULIN LISPRO 100 UNIT/ML SUBCUT SCH ×4 (00:45→17:29)
[2018-06-13] MEDS: hydrALAZINE 20 MG/1 ML VIAL IV PRN (00:47)
[2018-06-13] MEDS: ASCORBIC ACID 500 MG TABLET PO SCH ×2 (08:11→21:27)
[2018-06-13] MEDS: LOSARTAN 50 MG TABLET PO SCH (08:11)
[2018-06-13] MEDS: CARVEDILOL 25 MG TABLET PO SCH ×2 (08:11→17:29)
[2018-06-13] MEDS: DOCUSATE SODIUM 100 MG CAPSULE PO SCH ×2 (08:11→21:26)
[2018-06-13] MEDS: ISOSORBIDE MONONITRATE 60 MG TABLET PO SCH (08:11)
[2018-06-13] MEDS: VENLAFAXINE XR 75 MG CAPSULE PO SCH (08:11)
[2018-06-13] MEDS: PANTOPRAZOLE 40 MG TABLET PO SCH ×2 (08:11→21:28)
[2018-06-13] MEDS: CITALOPRAM 20 MG TABLET PO SCH (08:12)
[2018-06-13] MEDS: DOXAZOSIN 4 MG TABLET PO SCH ×3 (08:12→22:21)
[2018-06-13 09:33] LABS: Hematocrit 28.6 VOL% (35.7-47.0)
[2018-06-13] MEDS ORDERED: POLYETHYLENE GLYCOL POWDER 255 GM BOTTLE PO ONE (13:00)
[2018-06-13] MEDS ORDERED: BISACODYL 5 MG TABLET PO ONE (13:00)
[2018-06-13] MEDS: PHENYTOIN ER 100 MG CAPSULE PO SCH (21:29)
[2018-06-13] MEDS: SIMVASTATIN 20 MG TABLET PO SCH ×2 (21:30→22:22)
[2018-06-13] MEDS: GABAPENTIN 300 MG CAPSULE PO SCH ×2 (21:30→22:22)
[2018-06-13] MEDS: INSULIN GLARGINE 100 UNIT/ML SUBCUT SCH (21:57)
[2018-06-13] MEDS: ONDANSETRON 4 MG/2 ML VIAL IV PRN (22:17)
[2018-06-14] MEDS: INSULIN LISPRO 100 UNIT/ML SUBCUT SCH ×4 (00:16→18:08)
[2018-06-14 04:45] LABS: Hematocrit 29.4 VOL% (35.7-47.0)
[2018-06-14 04:48] LABS: INR 1.1; PT Patient Result 11.6 SECS
[2018-06-14] MEDS ORDERED: MAGNESIUM CITRATE 300 ML BOTTLE PO ONE ×2 (06:17)
[2018-06-14] MEDS ORDERED: LACTATED RINGERS 500 ML IV SCH (08:00)
[2018-06-14] MEDS: ISOSORBIDE MONONITRATE 60 MG TABLET PO SCH (08:19)
[2018-06-14] MEDS: DOXAZOSIN 4 MG TABLET PO SCH ×2 (08:19→21:25)
[2018-06-14] MEDS: CARVEDILOL 25 MG TABLET PO SCH ×2 (08:19→18:18)
[2018-06-14] MEDS: LOSARTAN 50 MG TABLET PO SCH (08:19)
[2018-06-14] MEDS ORDERED: LIDOCAINE 2% 5 ML VIAL ONE (10:00)
[2018-06-14] MEDS ORDERED: PROPOFOL 200 MG/20 ML VIAL IV ONE (10:00)
[2018-06-14] MEDS: CITALOPRAM 20 MG TABLET PO SCH (12:19)
[2018-06-14] MEDS: PANTOPRAZOLE 40 MG TABLET PO SCH ×2 (12:19→21:25)
[2018-06-14] MEDS: VENLAFAXINE XR 75 MG CAPSULE PO SCH (12:19)
[2018-06-14] MEDS: CLOPIDOGREL 75 MG TABLET PO SCH (12:19)
[2018-06-14] MEDS: ASPIRIN EC 81 MG TABLET PO SCH (12:19)
[2018-06-14] MEDS: ASCORBIC ACID 500 MG TABLET PO SCH ×2 (12:19→21:25)
[2018-06-14] MEDS: DOCUSATE SODIUM 100 MG CAPSULE PO SCH ×2 (12:20→21:25)
[2018-06-14 17:14] LABS: Hematocrit 27.7 VOL% (35.7-47.0); Hemoglobin 8.6 GM/DL (12.0-16.0)
[2018-06-14] MEDS ORDERED: SODIUM CHLORIDE 0.9% 1,000 ML IV PRN (19:00)
[2018-06-14] MEDS: INSULIN GLARGINE 100 UNIT/ML SUBCUT SCH (21:23)
[2018-06-14] MEDS: SIMVASTATIN 20 MG TABLET PO SCH (21:25)
[2018-06-14] MEDS: PHENYTOIN ER 100 MG CAPSULE PO SCH (21:25)
[2018-06-14] MEDS: GABAPENTIN 300 MG CAPSULE PO SCH (21:27)
[2018-06-14] MEDS: ONDANSETRON 4 MG/2 ML VIAL IV PRN (21:35)
[2018-06-15] MEDS: INSULIN LISPRO 100 UNIT/ML SUBCUT SCH ×4 (00:07→18:45)
[2018-06-15 05:40] LABS: Hematocrit 26.2 VOL% (35.7-47.0); Hemoglobin 8.2 GM/DL (12.0-16.0)
[2018-06-15] MEDS: ISOSORBIDE MONONITRATE 60 MG TABLET PO SCH (08:43)
[2018-06-15] MEDS: PANTOPRAZOLE 40 MG TABLET PO SCH ×2 (08:43→21:52)
[2018-06-15] MEDS: CITALOPRAM 20 MG TABLET PO SCH (08:43)
[2018-06-15] MEDS: ASCORBIC ACID 500 MG TABLET PO SCH ×2 (08:43→21:52)
[2018-06-15] MEDS: DOXAZOSIN 4 MG TABLET PO SCH (08:43)
[2018-06-15] MEDS: VENLAFAXINE XR 75 MG CAPSULE PO SCH (08:43)
[2018-06-15] MEDS: ASPIRIN EC 81 MG TABLET PO SCH (08:43)
[2018-06-15] MEDS: CARVEDILOL 25 MG TABLET PO SCH ×2 (08:44→16:23)
[2018-06-15] MEDS: LOSARTAN 50 MG TABLET PO SCH (08:44)
[2018-06-15] MEDS: DOCUSATE SODIUM 100 MG CAPSULE PO SCH ×2 (08:44→21:52)
[2018-06-15] MEDS: CLOPIDOGREL 75 MG TABLET PO SCH (08:44)
[2018-06-15 15:22] LABS: Hematocrit 27.3 VOL% (35.7-47.0); Hemoglobin 8.5 GM/DL (12.0-16.0)
[2018-06-15] MEDS ORDERED: DOXAZOSIN 2 MG TABLET PO SCH (18:19)
[2018-06-15] MEDS: INSULIN GLARGINE 100 UNIT/ML SUBCUT SCH (21:49)
[2018-06-15] MEDS: PHENYTOIN ER 100 MG CAPSULE PO SCH (21:51)
[2018-06-15] MEDS: DOXAZOSIN 1 MG TABLET PO SCH (21:52)
[2018-06-15] MEDS: SIMVASTATIN 20 MG TABLET PO SCH (21:52)
[2018-06-15] MEDS: GABAPENTIN 300 MG CAPSULE PO SCH (21:58)
[2018-06-16] MEDS: INSULIN LISPRO 100 UNIT/ML SUBCUT SCH ×4 (00:10→18:00)
[2018-06-16] MEDS: hydrALAZINE 20 MG/1 ML VIAL IV PRN ×2 (00:25→16:15)
[2018-06-16 05:48] LABS: Basophils % 0.2 % (0.0-0.8); Eosinophils # 0.2 10*3/uL (0.0-0.87); Eosinophils % 4.3 % (0.00-10.9); Hematocrit 27.1 VOL% (35.7-47.0); Hemoglobin 8.4 GM/DL (12.0-16.0); Immature Granulocytes % 0.4 %; Immature Granulocytes Absolute 0.02 #; Lymphocytes # 1.2 10*3/uL (1.4-4.0); Lymphocytes % 21.9 % (21.3-54.2); Mean Corpuscular Volume 100.7 FL (87-102); Mean Platelet Volume 9.8 FL (9.6-12.0); Monocytes % 15.5 % (1.7-12.7); Neutrophils % 57.7 % (38.7-73.9); Platelet Count 340 T/CUMM (130-400); Red Blood Count 2.69 MC/CUMM (3.8-5.5); Red Cell Distribution Width 19.9 % (9.3-17.3); White Blood Count 5.3 T/CUMM (4-12)
[2018-06-16 06:05] LABS: Calcium 8.4 MG/DL (8.5-10.1); Osmolality,Calculated 285.8 MOS/KG (273-304)
[2018-06-16] MEDS: CLOPIDOGREL 75 MG TABLET PO SCH (08:52)
[2018-06-16] MEDS: DOXAZOSIN 1 MG TABLET PO SCH (08:52)
[2018-06-16] MEDS: LOSARTAN 50 MG TABLET PO SCH (08:52)
[2018-06-16] MEDS: PANTOPRAZOLE 40 MG TABLET PO SCH ×2 (08:52→20:55)
[2018-06-16] MEDS: ISOSORBIDE MONONITRATE 60 MG TABLET PO SCH (08:52)
[2018-06-16] MEDS: VENLAFAXINE XR 75 MG CAPSULE PO SCH (08:52)
[2018-06-16] MEDS: CARVEDILOL 25 MG TABLET PO SCH ×2 (08:53→16:15)
[2018-06-16] MEDS: ASPIRIN EC 81 MG TABLET PO SCH (08:53)
[2018-06-16] MEDS: DOCUSATE SODIUM 100 MG CAPSULE PO SCH ×2 (08:53→20:55)
[2018-06-16] MEDS: ASCORBIC ACID 500 MG TABLET PO SCH ×2 (08:53→20:54)
[2018-06-16] MEDS: CITALOPRAM 20 MG TABLET PO SCH (08:53)
[2018-06-16] MEDS ORDERED: cefTRIAXone 1,000 MG in SYRINGE 1 EACH IV SCH (09:00)
[2018-06-16] MEDS: DOXAZOSIN 4 MG TABLET PO SCH ×2 (09:02→20:54)
[2018-06-16] MEDS ORDERED: LABETALOL 20 MG/4 ML SYRINGE IV ONE (17:40)
[2018-06-16] MEDS: ONDANSETRON 4 MG/2 ML VIAL IV PRN (18:00)
[2018-06-16] MEDS: INSULIN GLARGINE 100 UNIT/ML SUBCUT SCH (20:52)
[2018-06-16] MEDS: PHENYTOIN ER 100 MG CAPSULE PO SCH (20:53)
[2018-06-16] MEDS: SIMVASTATIN 20 MG TABLET PO SCH (20:53)
[2018-06-16] MEDS: MINOXIDIL 2.5 MG TABLET PO SCH (20:54)
[2018-06-16] MEDS: GABAPENTIN 300 MG CAPSULE PO SCH (20:55)
[2018-06-17] MEDS: INSULIN LISPRO 100 UNIT/ML SUBCUT SCH ×5 (00:04→23:43)
[2018-06-17 07:26] LABS: Basophils % 0.2 % (0.0-0.8); Eosinophils # 0.2 10*3/uL (0.0-0.87); Eosinophils % 4.7 % (0.00-10.9); Hematocrit 26.3 VOL% (35.7-47.0); Hemoglobin 8.2 GM/DL (12.0-16.0); Immature Granulocytes % 0.2 %; Immature Granulocytes Absolute 0.01 #; Lymphocytes # 1.3 10*3/uL (1.4-4.0); Lymphocytes % 27.5 % (21.3-54.2); Mean Corpuscular HGB Conc 31.2 GM/DL (32-36); Mean Corpuscular Volume 100.8 FL (87-102); Mean Platelet Volume 10.2 FL (9.6-12.0); Monocytes % 14.1 % (1.7-12.7); Neutrophils % 53.3 % (38.7-73.9); Platelet Count 334 T/CUMM (130-400); Red Blood Count 2.61 MC/CUMM (3.8-5.5); Red Cell Distribution Width 19.8 % (9.3-17.3); White Blood Count 4.7 T/CUMM (4-12)
[2018-06-17] MEDS: VENLAFAXINE XR 75 MG CAPSULE PO SCH (08:57)
[2018-06-17] MEDS: DOCUSATE SODIUM 100 MG CAPSULE PO SCH ×2 (08:57→21:17)
[2018-06-17] MEDS: CITALOPRAM 20 MG TABLET PO SCH (08:57)
[2018-06-17] MEDS: CARVEDILOL 25 MG TABLET PO SCH ×2 (08:57→17:49)
[2018-06-17] MEDS: ISOSORBIDE MONONITRATE 60 MG TABLET PO SCH (08:58)
[2018-06-17] MEDS: PANTOPRAZOLE 40 MG TABLET PO SCH ×2 (08:58→21:17)
[2018-06-17] MEDS: LOSARTAN 50 MG TABLET PO SCH (08:58)
[2018-06-17] MEDS: ASPIRIN EC 81 MG TABLET PO SCH (08:58)
[2018-06-17] MEDS: CLOPIDOGREL 75 MG TABLET PO SCH (08:58)
[2018-06-17] MEDS: MINOXIDIL 2.5 MG TABLET PO SCH ×2 (08:58→21:17)
[2018-06-17] MEDS: DOXAZOSIN 4 MG TABLET PO SCH ×2 (09:03→21:17)
[2018-06-17] MEDS: ASCORBIC ACID 500 MG TABLET PO SCH ×2 (09:04→21:17)
[2018-06-17] MEDS: hydrALAZINE 20 MG/1 ML VIAL IV PRN (12:17)
[2018-06-17] MEDS ORDERED: MINOXIDIL 2.5 MG TABLET PO SCH (15:00)
[2018-06-17] MEDS ORDERED: SENNA 8.6 MG TABLET PO ONE (17:07)
[2018-06-17] MEDS: GABAPENTIN 300 MG CAPSULE PO SCH (21:17)
[2018-06-17] MEDS: PHENYTOIN ER 100 MG CAPSULE PO SCH (21:17)
[2018-06-17] MEDS: SIMVASTATIN 20 MG TABLET PO SCH (21:17)
[2018-06-17] MEDS: POLYETHYLENE GLYCOL POWDER 17 GM PACK PO SCH (21:17)
[2018-06-17] MEDS: INSULIN GLARGINE 100 UNIT/ML SUBCUT SCH (21:31)
[2018-06-18] MEDS: INSULIN LISPRO 100 UNIT/ML SUBCUT SCH ×2 (06:13→12:11)
[2018-06-18] MEDS: CLOPIDOGREL 75 MG TABLET PO SCH (09:11)
[2018-06-18] MEDS: CITALOPRAM 20 MG TABLET PO SCH (09:12)
[2018-06-18] MEDS: DOXAZOSIN 4 MG TABLET PO SCH (09:12)
[2018-06-18] MEDS: VENLAFAXINE XR 75 MG CAPSULE PO SCH (09:12)
[2018-06-18] MEDS: PANTOPRAZOLE 40 MG TABLET PO SCH (09:12)
[2018-06-18] MEDS: ISOSORBIDE MONONITRATE 60 MG TABLET PO SCH (09:12)
[2018-06-18] MEDS: ASCORBIC ACID 500 MG TABLET PO SCH (09:12)
[2018-06-18] MEDS: DOCUSATE SODIUM 100 MG CAPSULE PO SCH (09:12)
[2018-06-18] MEDS: CARVEDILOL 25 MG TABLET PO SCH (09:13)
[2018-06-18] MEDS: POLYETHYLENE GLYCOL POWDER 17 GM PACK PO SCH (09:13)
[2018-06-18] MEDS: cloNIDine 0.2 MG/24 HR PATCH TRANSDERM SCH (09:13)
[2018-06-18] MEDS: MINOXIDIL 2.5 MG TABLET PO SCH (09:24)
[2018-06-18] MEDS: ASPIRIN EC 81 MG TABLET PO SCH (09:35)
[2018-06-18 12:19] VITALS: BP 167/89
== END 2018-06-18 14:50 | disposition home or self-care (01) | DRG 663 ==
LOC: N.ED 13:56 → N.EDINP 13:56 → N.2E 23:13 → SUATTDRO 06-11 12:31
PROVIDERS: ADMIT Hospitalist; ATTEND Internal Medicine

== ENCOUNTER 2018-06-25 20:45 | Inpatient (IN) ==
[2018-06-25] MEDS ORDERED: ONDANSETRON 4 MG/2 ML VIAL IV STA (21:29)
[2018-06-25 22:39] LABS: Alanine Aminotransferase 37 U/L (13-56); Albumin 2.3 G/DL (3.4-5.0); Alkaline Phosphatase 541 U/L (45-117); Amylase 15 U/L (25-115); Aspartate Amino Transferase 33 U/L (0-37); Bilirubin,Total < 0.39 MG/DL (0.2-1.0); Blood Urea Nitrogen 39 MG/DL (7-18); Calcium 8.7 MG/DL (8.5-10.1); Glucose 282 MG/DL (74-106); Total Protein 6.4 G/DL (6.4-8.3)
[2018-06-25 22:44] LABS: Apearance,Urine CLOUDY (Clear); Bacteria,Urine Many /HPF (Few); Bilirubin,Urine Negative (Negative); Blood, Urine Negative (Negative); Glucose,Urine (UA) 50 mg/dL (Negative); Hyaline Casts,Urine 9 /LPF (0-3); Ketones,Urine 5 mg/dL (Negative); Nitrite,Urine Negative (Negative); Protein,Urine 100 MG/DL; RBC,Urine 3 /HPF (0-4); Squamous Epithelial Cell,Urine Occasional /HPF (0-10); Urine Color Amber (Yellow); Urine Specific Gravity 1.017 (1.001-1.035); Urine Urobilinogen < 2.0 EU/DL (0.2-1.0); WBC,Urine 42 /HPF (0-6)
[2018-06-25 22:49] LABS: Barbiturates Screen,Urine Negative (Negative); Benzodiazepines Screen,Urine Negative (Negative); Cannabinoid Screen,Urine Negative (Negative); Opiate Screen,Urine Negative (Negative); Phencyclidine Screen,Urine Negative (Negative)
[2018-06-25] MEDS ORDERED: CALCIUM CHLORIDE 1,000 MG/10 ML SYRINGE IV STA (22:51)
[2018-06-25] MEDS ORDERED: INSULIN REGULAR 100 UNIT/ML IV STA (22:52)
[2018-06-25] MEDS ORDERED: DEXTROSE 50% 25 GM/50 ML VIAL IV STA (22:52)
[2018-06-25] MEDS ORDERED: SODIUM POLYSTYRENE SULFATE 15 GM/60 ML BOTTLE PO STA (22:52)
[2018-06-25] MEDS ORDERED: MEROPENEM 1,000 MG in SODIUM CHLORIDE 0.9% 100 ML IV STA (22:53)
[2018-06-25] MEDS ORDERED: DEXTROSE 50% 25 GM/50 ML SYRINGE IV ONE (23:03)
[2018-06-25 23:56] LABS: Basophils % 0.5 % (0.0-0.8); Eosinophils % 0.3 % (0.00-10.9); Hematocrit 30.6 VOL% (35.7-47.0); Hemoglobin 9.1 GM/DL (12.0-16.0); Immature Granulocytes % 0.5 %; Immature Granulocytes Absolute 0.04 #; Lymphocytes # 1.3 10*3/uL (1.4-4.0); Lymphocytes % 17.5 % (21.3-54.2); Mean Corpuscular HGB Conc 29.7 GM/DL (32-36); Mean Corpuscular Volume 102.7 FL (87-102); Mean Platelet Volume 10.2 FL (9.6-12.0); Monocytes % 8.2 % (1.7-12.7); Platelet Count 320 T/CUMM (130-400); Red Blood Count 2.98 MC/CUMM (3.8-5.5); Red Cell Distribution Width 18.3 % (9.3-17.3); White Blood Count 7.3 T/CUMM (4-12)
[2018-06-26 00:03] LABS: INR 1.1; PT Patient Result 12.1 SECS
[2018-06-26] MEDS ORDERED: MORPHINE 4 MG/1 ML VIAL IV PRN (02:03)
[2018-06-26] MEDS ORDERED: ACETAMINOPHEN 325 MG TABLET PO PRN (02:03)
[2018-06-26] MEDS ORDERED: diphenhydrAMINE CAP 25 MG CAPSULE PO PRN (02:03)
[2018-06-26] MEDS ORDERED: ONDANSETRON 4 MG/2 ML VIAL IV PRN (02:03)
[2018-06-26] MEDS ORDERED: NICOTINE 21 MG/24 HR PATCH TRANSDERM PRN (02:03)
[2018-06-26] MEDS ORDERED: BISACODYL 5 MG TABLET PO PRN (02:03)
[2018-06-26 03:09] LABS: Risk Ratio 3.07; Thyroid Stimulating Hormone 3.44 uIU/ml (0.358-3.74); VLDL CHOLESTEROL 28.2 MG/DL
[2018-06-26 06:45] LABS: Calcium 9.1 MG/DL (8.5-10.1); Osmolality,Calculated 290.8 MOS/KG (273-304)
[2018-06-26] MEDS ORDERED: SODIUM POLYSTYRENE SULFATE 15 GM/60 ML BOTTLE PO ONE (06:57)
[2018-06-26] MEDS ORDERED: INSULIN REGULAR IV STA ×2 (07:06→07:12)
[2018-06-26] MEDS ORDERED: [UNRECOGNIZED DRUG - OTHER] IV STA (07:06)
[2018-06-26] MEDS ORDERED: CALCIUM CHLORIDE IV STA ×2 (07:06→07:12)
[2018-06-26] MEDS ORDERED: DEXTROSE IV STA ×2 (07:06→07:12)
[2018-06-26] MEDS ORDERED: [UNRECOGNIZED DRUG - OTHER] IV STA (07:12)
[2018-06-26] MEDS ORDERED: FUROSEMIDE 20 MG/2 ML VIAL IV ONE (07:30)
[2018-06-26 08:10] LABS: Allen Test Positive
[2018-06-26 08:13] LABS: ABG Base Excess -7.4 MMOL/L (-2.5-2.5); ABG Oxygen Saturation 95.1 % (95-100); ABG PH 7.317 (7.35-7.45); ABG PO2 83.4 MM HG (80-95); ABG TCO2 19.1 MMOL/L (23-27)
[2018-06-26 08:59] LABS: Alanine Aminotransferase 42 U/L (13-56); Albumin 2.4 G/DL (3.4-5.0); Alkaline Phosphatase 548 U/L (45-117); Aspartate Amino Transferase 40 U/L (0-37); Bilirubin,Total < 0.39 MG/DL (0.2-1.0); Blood Urea Nitrogen 40 MG/DL (7-18); Calcium 9.4 MG/DL (8.5-10.1); Glucose 239 MG/DL (74-106); Osmolality,Calculated 292.7 MOS/KG (273-304); Total Protein 6.7 G/DL (6.4-8.3)
[2018-06-26] MEDS ORDERED: cloNIDine 0.2 MG/24 HR PATCH TRANSDERM SCH (09:00)
[2018-06-26] MEDS ORDERED: CARVEDILOL 25 MG TABLET PO SCH (09:00)
[2018-06-26] MEDS ORDERED: DEXTROSE 50% 25 GM/50 ML VIAL IV PRN (10:29)
[2018-06-26] MEDS ORDERED: GLUCAGON 1 MG VIAL IM PRN (10:29)
[2018-06-26] MEDS ORDERED: LEVOFLOXACIN INJ 250 MG in PREMIX 1 EACH IV SCH (11:30)
[2018-06-26] MEDS: ROSUVASTATIN 20 MG TABLET PO SCH (13:25)
[2018-06-26] MEDS: LOSARTAN 50 MG TABLET PO SCH (13:26)
[2018-06-26] MEDS: CLOPIDOGREL 75 MG TABLET PO SCH (13:29)
[2018-06-26] MEDS: ASCORBIC ACID 500 MG TABLET PO SCH ×2 (13:29→20:57)
[2018-06-26] MEDS: ISOSORBIDE MONONITRATE 60 MG TABLET PO SCH (13:29)
[2018-06-26] MEDS: MINOXIDIL 2.5 MG TABLET PO SCH ×2 (13:30→20:57)
[2018-06-26] MEDS: PANTOPRAZOLE 40 MG TABLET PO SCH (13:30)
[2018-06-26] MEDS: TORSEMIDE 20 MG TABLET PO SCH (13:30)
[2018-06-26] MEDS: DOXAZOSIN 4 MG TABLET PO SCH ×2 (13:31→20:57)
[2018-06-26] MEDS: SODIUM BICARB INJ 50 MEQ in DEXTROSE 5% NACL 0.45% 1,000 ML IV SCH (13:31)
[2018-06-26] MEDS: ASPIRIN 325 MG TABLET PO SCH (13:31)
[2018-06-26 14:13] LABS: Calcium 9.6 MG/DL (8.5-10.1); Osmolality,Calculated 290.5 MOS/KG (273-304)
[2018-06-26] MEDS: SODIUM POLYSTYRENE SULFATE 15 GM/60 ML BOTTLE RECTAL SCH ×2 (16:22→22:39)
[2018-06-26] MEDS: cefTRIAXone 1,000 MG in SYRINGE 1 EACH IV SCH (16:23)
[2018-06-26] MEDS: INSULIN REGULAR 100 UNIT/ML SUBCUT SCH ×3 (19:48→21:26)
[2018-06-26] MEDS: GABAPENTIN 300 MG CAPSULE PO SCH (20:57)
[2018-06-26] MEDS: INSULIN GLARGINE 100 UNIT/ML SUBCUT SCH (21:26)
[2018-06-27 05:19] LABS: Calcium 8.6 MG/DL (8.5-10.1); Osmolality,Calculated 288.4 MOS/KG (273-304)
[2018-06-27] MEDS ORDERED: DEXTROSE 50% 25 GM/50 ML SYRINGE IV PRN (07:00)
[2018-06-27] MEDS ORDERED: SODIUM POLYSTYRENE SULFATE 15 GM/60 ML BOTTLE RECTAL ONE (09:00)
[2018-06-27] MEDS: ASCORBIC ACID 500 MG TABLET PO SCH ×2 (10:20→21:22)
[2018-06-27] MEDS: LOSARTAN 50 MG TABLET PO SCH (10:20)
[2018-06-27] MEDS: MINOXIDIL 2.5 MG TABLET PO SCH ×2 (10:20→21:26)
[2018-06-27] MEDS: CLOPIDOGREL 75 MG TABLET PO SCH (10:20)
[2018-06-27] MEDS: ISOSORBIDE MONONITRATE 60 MG TABLET PO SCH (10:21)
[2018-06-27] MEDS: DOXAZOSIN 4 MG TABLET PO SCH ×2 (10:21→21:23)
[2018-06-27] MEDS: TORSEMIDE 20 MG TABLET PO SCH (10:21)
[2018-06-27] MEDS: ASPIRIN 325 MG TABLET PO SCH (10:21)
[2018-06-27] MEDS: PANTOPRAZOLE 40 MG TABLET PO SCH (10:22)
[2018-06-27] MEDS: ROSUVASTATIN 20 MG TABLET PO SCH (10:35)
[2018-06-27] MEDS: cefTRIAXone 1,000 MG in SYRINGE 1 EACH IV SCH (12:58)
[2018-06-27] MEDS: INSULIN REGULAR 100 UNIT/ML SUBCUT SCH ×3 (14:52→21:22)
[2018-06-27 17:14] LABS: Calcium 8.6 MG/DL (8.5-10.1)
[2018-06-27] MEDS: GABAPENTIN 300 MG CAPSULE PO SCH (21:23)
[2018-06-27] MEDS: INSULIN GLARGINE 100 UNIT/ML SUBCUT SCH (21:23)
[2018-06-28] MEDS: SODIUM BICARB INJ 50 MEQ in DEXTROSE 5% NACL 0.45% 1,000 ML IV SCH ×2 (06:25→08:57)
[2018-06-28 08:34] LABS: Alanine Aminotransferase 27 U/L (13-56); Albumin 2.2 G/DL (3.4-5.0); Alkaline Phosphatase 411 U/L (45-117); Aspartate Amino Transferase 19 U/L (0-37); Bilirubin,Total < 0.39 MG/DL (0.2-1.0); Blood Urea Nitrogen 38 MG/DL (7-18); Calcium 8.4 MG/DL (8.5-10.1); Glucose 71 MG/DL (74-106); Osmolality,Calculated 287.3 MOS/KG (273-304); Total Protein 5.9 G/DL (6.4-8.3)
[2018-06-28] MEDS: DOXAZOSIN 4 MG TABLET PO SCH (08:41)
[2018-06-28] MEDS: TORSEMIDE 20 MG TABLET PO SCH (08:42)
[2018-06-28] MEDS: ISOSORBIDE MONONITRATE 60 MG TABLET PO SCH (08:42)
[2018-06-28] MEDS: MINOXIDIL 2.5 MG TABLET PO SCH (08:42)
[2018-06-28] MEDS: cefTRIAXone 1,000 MG in SYRINGE 1 EACH IV SCH (08:42)
[2018-06-28] MEDS: ASPIRIN 325 MG TABLET PO SCH (08:42)
[2018-06-28] MEDS: ASCORBIC ACID 500 MG TABLET PO SCH (08:42)
[2018-06-28] MEDS: ROSUVASTATIN 20 MG TABLET PO SCH (08:42)
[2018-06-28] MEDS: CLOPIDOGREL 75 MG TABLET PO SCH (08:42)
[2018-06-28] MEDS: LOSARTAN 50 MG TABLET PO SCH (08:42)
[2018-06-28] MEDS: PANTOPRAZOLE 40 MG TABLET PO SCH (08:42)
[2018-06-28] MEDS: INSULIN REGULAR 100 UNIT/ML SUBCUT SCH ×2 (08:57→12:29)
[2018-06-28 12:06] VITALS: BP 135/69
== END 2018-06-28 14:32 | disposition home health service (06) | DRG 52 ==
LOC: N.ED 20:45 → N.EDINP 20:45 → N.2E 06-26 01:19
PROVIDERS: ADMIT Internal Medicine; ATTEND Internal Medicine

== ENCOUNTER 2018-07-05 11:03 | Inpatient (IN) ==
[2018-07-05 14:14] LABS: Basophils % 0.5 % (0.0-0.8); Eosinophils # 0.1 10*3/uL (0.0-0.87); Eosinophils % 1.5 % (0.00-10.9); Hematocrit 28.9 VOL% (35.7-47.0); Hemoglobin 9.2 GM/DL (12.0-16.0); Immature Granulocytes % 0.3 %; Immature Granulocytes Absolute 0.02 #; Lymphocytes # 1.3 10*3/uL (1.4-4.0); Mean Corpuscular HGB Conc 31.8 GM/DL (32-36); Mean Platelet Volume 10.1 FL (9.6-12.0); Monocytes % 6.8 % (1.7-12.7); Neutrophils % 71.9 % (38.7-73.9); Platelet Count 346 T/CUMM (130-400); Red Blood Count 2.86 MC/CUMM (3.8-5.5); Red Cell Distribution Width 17.9 % (9.3-17.3); White Blood Count 6.6 T/CUMM (4-12)
[2018-07-05 14:25] LABS: Albumin 2.6 G/DL (3.4-5.0); Bilirubin,Total 0.4 MG/DL (0.2-1.0); Calcium 8.7 MG/DL (8.5-10.1); Osmolality,Calculated 290.1 MOS/KG (273-304); Total Protein 6.8 G/DL (6.4-8.3)
[2018-07-05 14:48] LABS: INR 1.3; PT Patient Result 14.1 SECS; Partial Thromboplastin Time < 21.0 SECS (0-40)
[2018-07-05] MEDS ORDERED: ONDANSETRON 4 MG/2 ML VIAL IV PRN (16:14)
[2018-07-05] MEDS ORDERED: ACETAMINOPHEN 325 MG TABLET PO PRN (16:14)
[2018-07-05] MEDS ORDERED: LACTULOSE 20 GM/30 ML UDCUP PO PRN ×2 (16:14→17:14)
[2018-07-05] MEDS ORDERED: GLUCAGON 1 MG VIAL IM PRN (16:50)
[2018-07-05] MEDS ORDERED: NITROGLYCERIN SL 0.4 MG TABLET SL PRN (17:14)
[2018-07-05] MEDS ORDERED: MECLIZINE 12.5 MG TABLET PO PRN (17:14)
[2018-07-05 17:52] LABS: Basophils % 0.3 % (0.0-0.8); Eosinophils # 0.1 10*3/uL (0.0-0.87); Eosinophils % 1.5 % (0.00-10.9); Hematocrit 28.7 VOL% (35.7-47.0); Hemoglobin 8.9 GM/DL (12.0-16.0); Immature Granulocytes % 0.3 %; Immature Granulocytes Absolute 0.02 #; Lymphocytes # 1.3 10*3/uL (1.4-4.0); Lymphocytes % 19.7 % (21.3-54.2); Mean Corpuscular Volume 101.4 FL (87-102); Monocytes % 8.5 % (1.7-12.7); Neutrophils % 69.7 % (38.7-73.9); Platelet Count 337 T/CUMM (130-400); Red Blood Count 2.83 MC/CUMM (3.8-5.5); Red Cell Distribution Width 17.6 % (9.3-17.3); White Blood Count 6.7 T/CUMM (4-12)
[2018-07-05] MEDS: SODIUM CHLORIDE 0.9% 1,000 ML IV SCH (18:15)
[2018-07-05 18:18] LABS: Apearance,Urine CLOUDY (Clear); Bacteria,Urine Moderate /HPF (Few); Bilirubin,Urine Negative (Negative); Blood, Urine Negative (Negative); Glucose,Urine (UA) Negative (Negative); Hyaline Casts,Urine 11 /LPF (0-3); Ketones,Urine Negative (Negative); Mucus,Urine Occasional /LPF (Occasional); Nitrite,Urine Negative (Negative); Protein,Urine 100 MG/DL; RBC,Urine 21 /HPF (0-4); Squamous Epithelial Cell,Urine Few /HPF (0-10); Urine Color Yellow (Yellow); Urine Specific Gravity 1.006 (1.001-1.035); Urine Urobilinogen < 2.0 EU/DL (0.2-1.0); WBC,Urine 627 /HPF (0-6)
[2018-07-05 18:20] LABS: Risk Ratio 2.9; Thyroid Stimulating Hormone 2.32 uIU/ml (0.358-3.74); VLDL CHOLESTEROL 19.2 MG/DL
[2018-07-05] MEDS: hydrALAZINE 20 MG/1 ML VIAL IV PRN (19:41)
[2018-07-05] MEDS ORDERED: PHENYTOIN ER 100 MG CAPSULE PO SCH (21:00)
[2018-07-05] MEDS: PANTOPRAZOLE 40 MG VIAL IV SCH (21:23)
[2018-07-05] MEDS: DOXAZOSIN 4 MG TABLET PO SCH ×2 (21:27→22:39)
[2018-07-05] MEDS: MINOXIDIL 2.5 MG TABLET PO SCH (21:27)
[2018-07-05] MEDS: CARVEDILOL 25 MG TABLET PO SCH ×2 (21:27→22:39)
[2018-07-05] MEDS: INSULIN GLARGINE 100 UNIT/ML SUBCUT SCH (21:28)
[2018-07-05] MEDS ORDERED: PROMETHAZINE 25 MG/1 ML VIAL IM PRN (22:31)
[2018-07-05] MEDS: DOCUSATE SODIUM 100 MG CAPSULE PO SCH (22:39)
[2018-07-05] MEDS: GABAPENTIN 300 MG CAPSULE PO SCH (22:40)
[2018-07-05] MEDS: SIMVASTATIN 20 MG TABLET PO SCH (22:40)
[2018-07-05] MEDS: ASCORBIC ACID 500 MG TABLET PO SCH (22:40)
[2018-07-05] MEDS: INSULIN LISPRO 100 UNIT/ML SUBCUT SCH (22:40)
[2018-07-05] MEDS: LUBIPROSTONE 24 MCG CAPSULE PO SCH (22:41)
[2018-07-05 22:52] LABS: Hematocrit 22.7 VOL% (35.7-47.0); Hemoglobin 7.1 GM/DL (12.0-16.0)
[2018-07-06] MEDS ORDERED: SODIUM CHLORIDE 0.9% 1,000 ML IV PRN ×2 (00:14→08:48)
[2018-07-06 00:50] LABS: Calcium 8.6 MG/DL (8.5-10.1)
[2018-07-06 01:02] LABS: Hematocrit 22.2 VOL% (35.7-47.0)
[2018-07-06] MEDS ORDERED: FUROSEMIDE 40 MG/4 ML VIAL IV ONE ×2 (07:40→08:49)
[2018-07-06] MEDS: INSULIN LISPRO 100 UNIT/ML SUBCUT SCH ×4 (08:13→22:23)
[2018-07-06] MEDS: CARVEDILOL 25 MG TABLET PO SCH ×2 (08:15→16:21)
[2018-07-06] MEDS: DOXAZOSIN 4 MG TABLET PO SCH ×2 (08:15→22:22)
[2018-07-06] MEDS: LUBIPROSTONE 24 MCG CAPSULE PO SCH ×2 (08:15→22:22)
[2018-07-06] MEDS: CITALOPRAM 20 MG TABLET PO SCH (08:15)
[2018-07-06] MEDS: METOCLOPRAMIDE 10 MG TABLET PO SCH ×2 (08:15→15:47)
[2018-07-06] MEDS: FUROSEMIDE 40 MG/4 ML VIAL IV SCH ×2 (08:15→08:19)
[2018-07-06] MEDS: hydrALAZINE 20 MG/1 ML VIAL IV PRN ×2 (08:16→13:41)
[2018-07-06] MEDS: DOCUSATE SODIUM 100 MG CAPSULE PO SCH ×2 (08:19→22:23)
[2018-07-06] MEDS: MINOXIDIL 2.5 MG TABLET PO SCH ×2 (08:19→22:24)
[2018-07-06] MEDS: ASCORBIC ACID 500 MG TABLET PO SCH ×2 (08:19→22:24)
[2018-07-06] MEDS: VENLAFAXINE XR 75 MG CAPSULE PO SCH (08:20)
[2018-07-06] MEDS: POLYETHYLENE GLYCOL POWDER 17 GM PACK PO SCH (08:20)
[2018-07-06] MEDS: TORSEMIDE 20 MG TABLET PO SCH (08:20)
[2018-07-06] MEDS: ISOSORBIDE MONONITRATE 60 MG TABLET PO SCH (08:20)
[2018-07-06 08:24] LABS: Basophils % 0.3 % (0.0-0.8); Eosinophils # 0.1 10*3/uL (0.0-0.87); Eosinophils % 1.9 % (0.00-10.9); Hematocrit 21.7 VOL% (35.7-47.0); Hemoglobin 6.8 GM/DL (12.0-16.0); Immature Granulocytes % 0.3 %; Immature Granulocytes Absolute 0.02 #; Lymphocytes # 1.9 10*3/uL (1.4-4.0); Lymphocytes % 28.6 % (21.3-54.2); Mean Corpuscular HGB Conc 31.3 GM/DL (32-36); Mean Corpuscular Volume 101.4 FL (87-102); Mean Platelet Volume 10.4 FL (9.6-12.0); Monocytes % 9.6 % (1.7-12.7); Neutrophils % 59.3 % (38.7-73.9); Platelet Count 246 T/CUMM (130-400); Red Blood Count 2.14 MC/CUMM (3.8-5.5); Red Cell Distribution Width 17.3 % (9.3-17.3); White Blood Count 6.5 T/CUMM (4-12)
[2018-07-06] MEDS: SODIUM CHLORIDE 0.9% 1,000 ML IV SCH ×2 (09:01→09:48)
[2018-07-06] MEDS: PANTOPRAZOLE 40 MG VIAL IV SCH (09:01)
[2018-07-06] MEDS: PANTOPRAZOLE 40 MG VIAL IV ONE ×2 (10:54→12:00)
[2018-07-06] MEDS: PANTOPRAZOLE INJ 200 MG in SODIUM CHLORIDE 0.9% 250 ML IV SCH (17:09)
[2018-07-06 19:27] LABS: Hematocrit 25.4 VOL% (35.7-47.0); Hemoglobin 8.7 GM/DL (12.0-16.0)
[2018-07-06] MEDS: PHENYTOIN 100 MG/2 ML VIAL IV SCH (22:07)
[2018-07-06] MEDS: INSULIN GLARGINE 100 UNIT/ML SUBCUT SCH (22:23)
[2018-07-06] MEDS: GABAPENTIN 300 MG CAPSULE PO SCH (22:24)
[2018-07-06] MEDS: SIMVASTATIN 20 MG TABLET PO SCH (22:24)
[2018-07-07 00:04] LABS: Hematocrit 20.1 VOL% (35.7-47.0); Hemoglobin 6.6 GM/DL (12.0-16.0)
[2018-07-07] MEDS ORDERED: LORazepam 2 MG/1 ML VIAL IM ONE (01:30)
[2018-07-07] MEDS ORDERED: SODIUM CHLORIDE 0.9% 1,000 ML IV PRN ×2 (01:37→16:07)
[2018-07-07 07:19] LABS: Basophils % 0.2 % (0.0-0.8); Eosinophils # 0.1 10*3/uL (0.0-0.87); Immature Granulocytes % 0.8 %; Immature Granulocytes Absolute 0.08 #; Lymphocytes # 1.9 10*3/uL (1.4-4.0); Lymphocytes % 19.8 % (21.3-54.2); Mean Corpuscular HGB Conc 32.5 GM/DL (32-36); Mean Corpuscular Volume 97.1 FL (87-102); Mean Platelet Volume 10.1 FL (9.6-12.0); Monocytes % 7.9 % (1.7-12.7); Neutrophils % 70.3 % (38.7-73.9); Platelet Count 175 T/CUMM (130-400); Red Blood Count 1.71 MC/CUMM (3.8-5.5); Red Cell Distribution Width 17.4 % (9.3-17.3); White Blood Count 9.6 T/CUMM (4-12)
[2018-07-07 07:26] LABS: Hematocrit 16.6 VOL% (35.7-47.0); Hemoglobin 5.4 GM/DL (12.0-16.0)
[2018-07-07 07:30] LABS: Calcium 8.3 MG/DL (8.5-10.1); Osmolality,Calculated 318.1 MOS/KG (273-304)
[2018-07-07] MEDS: hydrALAZINE 20 MG/1 ML VIAL IV PRN (07:30)
[2018-07-07] MEDS: FUROSEMIDE 40 MG/4 ML VIAL IV SCH (08:20)
[2018-07-07] MEDS ORDERED: FUROSEMIDE 40 MG/4 ML VIAL IV ONE (08:22)
[2018-07-07] MEDS: INSULIN LISPRO 100 UNIT/ML SUBCUT SCH ×4 (08:36→20:27)
[2018-07-07] MEDS: POLYETHYLENE GLYCOL POWDER 17 GM PACK PO SCH (08:36)
[2018-07-07] MEDS: CITALOPRAM 20 MG TABLET PO SCH ×2 (08:37→11:29)
[2018-07-07] MEDS: DOCUSATE SODIUM 100 MG CAPSULE PO SCH ×2 (08:37→20:27)
[2018-07-07] MEDS: POTASSIUM CHLORIDE RIDER 10 MEQ in PREMIX 1 EACH IV PRN (08:46)
[2018-07-07] MEDS: PANTOPRAZOLE INJ 200 MG in SODIUM CHLORIDE 0.9% 250 ML IV SCH ×2 (08:48→10:43)
[2018-07-07] MEDS: METOCLOPRAMIDE 10 MG TABLET PO SCH ×2 (08:56→16:18)
[2018-07-07] MEDS: CARVEDILOL 25 MG TABLET PO SCH ×3 (08:56→16:18)
[2018-07-07] MEDS: LUBIPROSTONE 24 MCG CAPSULE PO SCH ×2 (08:57→20:26)
[2018-07-07] MEDS: DOXAZOSIN 4 MG TABLET PO SCH ×3 (08:57→20:25)
[2018-07-07] MEDS: TORSEMIDE 20 MG TABLET PO SCH ×2 (08:57→11:18)
[2018-07-07] MEDS: ASCORBIC ACID 500 MG TABLET PO SCH ×2 (08:58→20:26)
[2018-07-07] MEDS: ISOSORBIDE MONONITRATE 60 MG TABLET PO SCH ×2 (08:58→11:17)
[2018-07-07] MEDS: VENLAFAXINE XR 75 MG CAPSULE PO SCH ×2 (08:58→11:28)
[2018-07-07] MEDS: MINOXIDIL 2.5 MG TABLET PO SCH ×3 (08:58→20:26)
[2018-07-07] MEDS: POTASSIUM CHLORIDE RIDER 20 MEQ in PREMIX 1 EACH IV PRN (10:19)
[2018-07-07] MEDS ORDERED: hydrALAZINE 20 MG/1 ML VIAL IV ONE (11:04)
[2018-07-07] MEDS ORDERED: VANCOMYCIN INJ 750 MG in SODIUM CHLORIDE 0.9% 250 ML IV ONE (14:00)
[2018-07-07] MEDS: SODIUM CHLORIDE 0.9% 1,000 ML IV SCH ×2 (14:52→21:58)
[2018-07-07 15:33] LABS: Hematocrit 21.2 VOL% (35.7-47.0); Hemoglobin 6.9 GM/DL (12.0-16.0)
[2018-07-07] MEDS ORDERED: ALBUMIN 5% 12.5 GM in PREMIX 1 EACH IV ONE (16:57)
[2018-07-07] MEDS: PHENYTOIN 100 MG/2 ML VIAL IV SCH (20:25)
[2018-07-07] MEDS: SIMVASTATIN 20 MG TABLET PO SCH (20:26)
[2018-07-07] MEDS: GABAPENTIN 300 MG CAPSULE PO SCH (20:26)
[2018-07-07] MEDS: INSULIN GLARGINE 100 UNIT/ML SUBCUT SCH (20:26)
[2018-07-08 04:58] LABS: Basophils % 0.3 % (0.0-0.8); Eosinophils # 0.2 10*3/uL (0.0-0.87); Eosinophils % 3.2 % (0.00-10.9); Hematocrit 26.6 VOL% (35.7-47.0); Hemoglobin 8.7 GM/DL (12.0-16.0); Immature Granulocytes % 0.5 %; Immature Granulocytes Absolute 0.03 #; Lymphocytes # 1.9 10*3/uL (1.4-4.0); Lymphocytes % 28.2 % (21.3-54.2); Mean Corpuscular HGB Conc 32.7 GM/DL (32-36); Mean Corpuscular Volume 88.4 FL (87-102); Mean Platelet Volume 10.4 FL (9.6-12.0); Monocytes % 8.6 % (1.7-12.7); Neutrophils % 59.2 % (38.7-73.9); Platelet Count 125 T/CUMM (130-400); Red Blood Count 3.01 MC/CUMM (3.8-5.5); Red Cell Distribution Width 17.2 % (9.3-17.3); White Blood Count 6.6 T/CUMM (4-12)
[2018-07-08 05:17] LABS: Calcium 8.4 MG/DL (8.5-10.1); Osmolality,Calculated 325.7 MOS/KG (273-304)
[2018-07-08] MEDS: SODIUM CHLORIDE 0.9% 1,000 ML IV SCH ×2 (05:17→21:31)
[2018-07-08] MEDS: POTASSIUM CHLORIDE RIDER 20 MEQ in PREMIX 1 EACH IV PRN (05:52)
[2018-07-08] MEDS: INSULIN LISPRO 100 UNIT/ML SUBCUT SCH ×4 (07:20→21:15)
[2018-07-08] MEDS: POTASSIUM CHLORIDE RIDER 10 MEQ in PREMIX 1 EACH IV PRN (07:52)
[2018-07-08] MEDS: PANTOPRAZOLE INJ 200 MG in SODIUM CHLORIDE 0.9% 250 ML IV SCH ×2 (07:53→10:32)
[2018-07-08] MEDS: POLYETHYLENE GLYCOL POWDER 17 GM PACK PO SCH (08:09)
[2018-07-08] MEDS: CARVEDILOL 25 MG TABLET PO SCH ×2 (08:09→17:50)
[2018-07-08] MEDS: DOXAZOSIN 4 MG TABLET PO SCH ×2 (08:09→21:17)
[2018-07-08] MEDS: MINOXIDIL 2.5 MG TABLET PO SCH ×2 (08:09→21:17)
[2018-07-08] MEDS: VENLAFAXINE XR 75 MG CAPSULE PO SCH (08:09)
[2018-07-08] MEDS: TORSEMIDE 20 MG TABLET PO SCH (08:09)
[2018-07-08] MEDS: ISOSORBIDE MONONITRATE 60 MG TABLET PO SCH (08:09)
[2018-07-08] MEDS: CITALOPRAM 20 MG TABLET PO SCH (08:09)
[2018-07-08] MEDS: ASCORBIC ACID 500 MG TABLET PO SCH ×2 (08:09→21:29)
[2018-07-08] MEDS: FUROSEMIDE 40 MG/4 ML VIAL IV SCH (08:10)
[2018-07-08] MEDS: LUBIPROSTONE 24 MCG CAPSULE PO SCH ×2 (08:10→21:14)
[2018-07-08] MEDS: DOCUSATE SODIUM 100 MG CAPSULE PO SCH ×2 (08:10→21:14)
[2018-07-08] MEDS: METOCLOPRAMIDE 10 MG TABLET PO SCH ×2 (08:10→17:50)
[2018-07-08] MEDS ORDERED: NOREPINEPHRINE 8 MG in SODIUM CHLORIDE 0.9% 242 ML IV PRN (11:15)
[2018-07-08 11:44] LABS: Hematocrit 24.1 VOL% (35.7-47.0); Hemoglobin 7.8 GM/DL (12.0-16.0)
[2018-07-08 15:47] LABS: Hematocrit 24.7 VOL% (35.7-47.0); Hemoglobin 8.2 GM/DL (12.0-16.0)
[2018-07-08] MEDS: INSULIN GLARGINE 100 UNIT/ML SUBCUT SCH (21:29)
[2018-07-08] MEDS: GABAPENTIN 300 MG CAPSULE PO SCH (21:29)
[2018-07-08] MEDS: PHENYTOIN 100 MG/2 ML VIAL IV SCH (21:29)
[2018-07-08] MEDS: SIMVASTATIN 20 MG TABLET PO SCH (21:29)
[2018-07-08 23:50] LABS: Hematocrit 24.1 VOL% (35.7-47.0); Hemoglobin 7.8 GM/DL (12.0-16.0)
[2018-07-09 06:58] LABS: Basophils % 0.3 % (0.0-0.8); Eosinophils # 0.2 10*3/uL (0.0-0.87); Eosinophils % 3.8 % (0.00-10.9); Hematocrit 31.4 VOL% (35.7-47.0); Immature Granulocytes % 0.3 %; Immature Granulocytes Absolute 0.02 #; Lymphocytes # 1.2 10*3/uL (1.4-4.0); Lymphocytes % 20.5 % (21.3-54.2); Mean Corpuscular HGB Conc 31.5 GM/DL (32-36); Mean Corpuscular Volume 91.5 FL (87-102); Mean Platelet Volume 10.5 FL (9.6-12.0); Monocytes % 10.2 % (1.7-12.7); Neutrophils % 64.9 % (38.7-73.9); Platelet Count 126 T/CUMM (130-400); Red Blood Count 3.43 MC/CUMM (3.8-5.5); Red Cell Distribution Width 17.2 % (9.3-17.3); White Blood Count 6.1 T/CUMM (4-12)
[2018-07-09] MEDS ORDERED: SODIUM CHLORIDE 0.9% 1,000 ML IV PRN (07:00)
[2018-07-09 07:04] LABS: Hemoglobin 9.9 GM/DL (12.0-16.0)
[2018-07-09 07:15] LABS: Calcium 8.1 MG/DL (8.5-10.1); Osmolality,Calculated 313.3 MOS/KG (273-304)
[2018-07-09] MEDS: INSULIN LISPRO 100 UNIT/ML SUBCUT SCH ×4 (07:25→20:34)
[2018-07-09] MEDS: DEXTROSE 50% 25 GM/50 ML SYRINGE IV PRN ×3 (07:26→16:28)
[2018-07-09] MEDS ORDERED: POTASSIUM CHLORIDE 10 MEQ TABLET PO ONE (07:48)
[2018-07-09] MEDS ORDERED: LACTATED RINGERS 500 ML IV SCH (08:00)
[2018-07-09] MEDS ORDERED: VANCOMYCIN INJ 750 MG in SODIUM CHLORIDE 0.9% 250 ML IV ONE (09:00)
[2018-07-09] MEDS: FUROSEMIDE 40 MG/4 ML VIAL IV SCH (09:48)
[2018-07-09] MEDS: POTASSIUM CHLORIDE RIDER 20 MEQ in PREMIX 1 EACH IV PRN (09:50)
[2018-07-09] MEDS ORDERED: ETOMIDATE 20 MG/10 ML VIAL IV ONE (10:00)
[2018-07-09] MEDS ORDERED: PROPOFOL 200 MG/20 ML VIAL IV ONE (10:00)
[2018-07-09] MEDS ORDERED: LIDOCAINE 2% 5 ML VIAL ONE (10:00)
[2018-07-09] MEDS: PANTOPRAZOLE INJ 200 MG in SODIUM CHLORIDE 0.9% 250 ML IV SCH (10:57)
[2018-07-09] MEDS: POLYETHYLENE GLYCOL POWDER 17 GM PACK PO SCH (11:17)
[2018-07-09] MEDS: ASCORBIC ACID 500 MG TABLET PO SCH ×2 (11:18→20:35)
[2018-07-09] MEDS: DOCUSATE SODIUM 100 MG CAPSULE PO SCH ×2 (11:18→20:34)
[2018-07-09] MEDS: CITALOPRAM 20 MG TABLET PO SCH (11:19)
[2018-07-09] MEDS: METOCLOPRAMIDE 10 MG TABLET PO SCH ×2 (11:20→16:52)
[2018-07-09] MEDS: LUBIPROSTONE 24 MCG CAPSULE PO SCH ×2 (11:21→20:34)
[2018-07-09] MEDS: VENLAFAXINE XR 75 MG CAPSULE PO SCH (11:21)
[2018-07-09] MEDS: CARVEDILOL 25 MG TABLET PO SCH ×2 (11:22→16:52)
[2018-07-09] MEDS: TORSEMIDE 20 MG TABLET PO SCH (11:22)
[2018-07-09] MEDS ORDERED: VANCOMYCIN INJ 250 MG in SODIUM CHLORIDE 0.9% 100 ML IV ONE (11:30)
[2018-07-09] MEDS: POTASSIUM CHLORIDE RIDER 10 MEQ in PREMIX 1 EACH IV PRN (11:33)
[2018-07-09] MEDS: ISOSORBIDE MONONITRATE 60 MG TABLET PO SCH (13:15)
[2018-07-09] MEDS ORDERED: DEXTROSE 5% 1,000 ML IV SCH (14:00)
[2018-07-09 16:29] LABS: Hematocrit 31.7 VOL% (35.7-47.0); Hemoglobin 10.1 GM/DL (12.0-16.0)
[2018-07-09] MEDS: PHENYTOIN 100 MG/2 ML VIAL IV SCH (20:34)
[2018-07-09] MEDS: INSULIN GLARGINE 100 UNIT/ML SUBCUT SCH (20:34)
[2018-07-09] MEDS: PANTOPRAZOLE 40 MG TABLET PO SCH (20:35)
[2018-07-09] MEDS: GABAPENTIN 300 MG CAPSULE PO SCH (20:35)
[2018-07-09] MEDS: SIMVASTATIN 20 MG TABLET PO SCH (20:35)
[2018-07-09] MEDS ORDERED: VANCOMYCIN INJ 500 MG in SODIUM CHLORIDE 0.9% 100 ML IV ONE (21:00)
[2018-07-10] MEDS: hydrALAZINE 20 MG/1 ML VIAL IV PRN (02:05)
[2018-07-10 03:48] LABS: Basophils % 0.2 % (0.0-0.8); Eosinophils # 0.2 10*3/uL (0.0-0.87); Eosinophils % 4.3 % (0.00-10.9); Hematocrit 33.3 VOL% (35.7-47.0); Hemoglobin 10.4 GM/DL (12.0-16.0); Immature Granulocytes % 0.4 %; Immature Granulocytes Absolute 0.02 #; Lymphocytes # 1.4 10*3/uL (1.4-4.0); Mean Corpuscular HGB Conc 31.2 GM/DL (32-36); Mean Corpuscular Volume 91.7 FL (87-102); Mean Platelet Volume 10.4 FL (9.6-12.0); Monocytes % 10.2 % (1.7-12.7); Neutrophils % 59.9 % (38.7-73.9); Platelet Count 151 T/CUMM (130-400); Red Blood Count 3.63 MC/CUMM (3.8-5.5); Red Cell Distribution Width 17.2 % (9.3-17.3); White Blood Count 5.6 T/CUMM (4-12)
[2018-07-10] MEDS: INSULIN LISPRO 100 UNIT/ML SUBCUT SCH ×4 (07:32→20:56)
[2018-07-10] MEDS: VANCOMYCIN INJ 1,000 MG in SODIUM CHLORIDE 0.9% 250 ML IV SCH (08:12)
[2018-07-10] MEDS: DEXTROSE 50% 25 GM/50 ML SYRINGE IV PRN (08:12)
[2018-07-10] MEDS: DOCUSATE SODIUM 100 MG CAPSULE PO SCH ×2 (08:13→20:57)
[2018-07-10] MEDS: PANTOPRAZOLE 40 MG TABLET PO SCH ×2 (08:13→20:56)
[2018-07-10] MEDS: VENLAFAXINE XR 75 MG CAPSULE PO SCH (08:13)
[2018-07-10] MEDS: CITALOPRAM 20 MG TABLET PO SCH (08:13)
[2018-07-10] MEDS: METOCLOPRAMIDE 10 MG TABLET PO SCH ×2 (08:13→17:50)
[2018-07-10] MEDS: LUBIPROSTONE 24 MCG CAPSULE PO SCH ×2 (08:13→20:57)
[2018-07-10] MEDS: ISOSORBIDE MONONITRATE 60 MG TABLET PO SCH (08:13)
[2018-07-10] MEDS: ASCORBIC ACID 500 MG TABLET PO SCH ×2 (08:13→20:56)
[2018-07-10] MEDS: CARVEDILOL 25 MG TABLET PO SCH ×2 (08:13→17:50)
[2018-07-10] MEDS: TORSEMIDE 20 MG TABLET PO SCH (08:13)
[2018-07-10] MEDS: FUROSEMIDE 40 MG/4 ML VIAL IV SCH (08:14)
[2018-07-10] MEDS: POLYETHYLENE GLYCOL POWDER 17 GM PACK PO SCH (08:14)
[2018-07-10 12:38] LABS: Calcium 8.3 MG/DL (8.5-10.1); Osmolality,Calculated 308.7 MOS/KG (273-304)
[2018-07-10] MEDS: GABAPENTIN 300 MG CAPSULE PO SCH (20:56)
[2018-07-10] MEDS: INSULIN GLARGINE 100 UNIT/ML SUBCUT SCH (20:56)
[2018-07-10] MEDS: PHENYTOIN 100 MG/2 ML VIAL IV SCH (20:57)
[2018-07-10] MEDS: SIMVASTATIN 20 MG TABLET PO SCH (20:57)
[2018-07-11 05:35] LABS: Basophils % 0.5 % (0.0-0.8); Eosinophils # 0.2 10*3/uL (0.0-0.87); Eosinophils % 3.7 % (0.00-10.9); Hematocrit 31.8 VOL% (35.7-47.0); Immature Granulocytes % 0.3 %; Immature Granulocytes Absolute 0.02 #; Lymphocytes # 1.4 10*3/uL (1.4-4.0); Lymphocytes % 23.1 % (21.3-54.2); Mean Corpuscular HGB Conc 31.4 GM/DL (32-36); Mean Corpuscular Volume 92.7 FL (87-102); Mean Platelet Volume 10.8 FL (9.6-12.0); Monocytes % 12.2 % (1.7-12.7); Neutrophils % 60.2 % (38.7-73.9); Platelet Count 171 T/CUMM (130-400); Red Blood Count 3.43 MC/CUMM (3.8-5.5); Red Cell Distribution Width 16.6 % (9.3-17.3); White Blood Count 5.9 T/CUMM (4-12)
[2018-07-11] MEDS: INSULIN LISPRO 100 UNIT/ML SUBCUT SCH ×4 (07:43→21:49)
[2018-07-11] MEDS: DOCUSATE SODIUM 100 MG CAPSULE PO SCH ×2 (09:37→20:41)
[2018-07-11] MEDS: CITALOPRAM 20 MG TABLET PO SCH (09:37)
[2018-07-11] MEDS: ISOSORBIDE MONONITRATE 60 MG TABLET PO SCH (09:37)
[2018-07-11] MEDS: TORSEMIDE 20 MG TABLET PO SCH (09:37)
[2018-07-11] MEDS: METOCLOPRAMIDE 10 MG TABLET PO SCH ×2 (09:37→17:25)
[2018-07-11] MEDS: VENLAFAXINE XR 75 MG CAPSULE PO SCH (09:37)
[2018-07-11] MEDS: ASCORBIC ACID 500 MG TABLET PO SCH ×2 (09:37→20:41)
[2018-07-11] MEDS: PANTOPRAZOLE 40 MG TABLET PO SCH ×2 (09:37→20:42)
[2018-07-11] MEDS: VANCOMYCIN INJ 1,000 MG in SODIUM CHLORIDE 0.9% 250 ML IV SCH (09:38)
[2018-07-11] MEDS: LUBIPROSTONE 24 MCG CAPSULE PO SCH ×2 (09:38→20:42)
[2018-07-11] MEDS: POLYETHYLENE GLYCOL POWDER 17 GM PACK PO SCH (09:38)
[2018-07-11] MEDS: CARVEDILOL 25 MG TABLET PO SCH ×2 (09:38→17:25)
[2018-07-11] MEDS: FUROSEMIDE 40 MG/4 ML VIAL IV SCH (09:38)
[2018-07-11] MEDS: SIMVASTATIN 20 MG TABLET PO SCH (20:42)
[2018-07-11] MEDS: GABAPENTIN 300 MG CAPSULE PO SCH (20:42)
[2018-07-11] MEDS ORDERED: PHENYTOIN ER 100 MG CAPSULE PO SCH (21:00)
[2018-07-11] MEDS: INSULIN GLARGINE 100 UNIT/ML SUBCUT SCH (21:50)
[2018-07-12 05:08] LABS: Basophils % 0.3 % (0.0-0.8); Eosinophils # 0.2 10*3/uL (0.0-0.87); Eosinophils % 2.6 % (0.00-10.9); Hematocrit 29.6 VOL% (35.7-47.0); Hemoglobin 9.6 GM/DL (12.0-16.0); Immature Granulocytes % 0.3 %; Immature Granulocytes Absolute 0.02 #; Lymphocytes # 1.2 10*3/uL (1.4-4.0); Lymphocytes % 19.8 % (21.3-54.2); Mean Corpuscular HGB Conc 32.4 GM/DL (32-36); Mean Corpuscular Volume 91.6 FL (87-102); Monocytes % 14.3 % (1.7-12.7); Neutrophils % 62.7 % (38.7-73.9); Platelet Count 185 T/CUMM (130-400); Red Blood Count 3.23 MC/CUMM (3.8-5.5); Red Cell Distribution Width 16.1 % (9.3-17.3); White Blood Count 6.2 T/CUMM (4-12)
[2018-07-12] MEDS: INSULIN LISPRO 100 UNIT/ML SUBCUT SCH ×2 (07:42→12:14)
[2018-07-12] MEDS: POLYETHYLENE GLYCOL POWDER 17 GM PACK PO SCH (08:54)
[2018-07-12] MEDS: ASCORBIC ACID 500 MG TABLET PO SCH (08:54)
[2018-07-12] MEDS: PANTOPRAZOLE 40 MG TABLET PO SCH (08:54)
[2018-07-12] MEDS: ISOSORBIDE MONONITRATE 60 MG TABLET PO SCH (08:54)
[2018-07-12] MEDS: LUBIPROSTONE 24 MCG CAPSULE PO SCH (08:55)
[2018-07-12] MEDS: DOCUSATE SODIUM 100 MG CAPSULE PO SCH (08:56)
[2018-07-12] MEDS: METOCLOPRAMIDE 10 MG TABLET PO SCH (08:56)
[2018-07-12] MEDS: TORSEMIDE 20 MG TABLET PO SCH (08:56)
[2018-07-12] MEDS: CITALOPRAM 20 MG TABLET PO SCH (08:56)
[2018-07-12] MEDS: CARVEDILOL 25 MG TABLET PO SCH (08:57)
[2018-07-12] MEDS: VENLAFAXINE XR 75 MG CAPSULE PO SCH (08:57)
[2018-07-12] MEDS ORDERED: cloNIDine 0.2 MG/24 HR PATCH TRANSDERM SCH (09:00)
[2018-07-12] MEDS: FUROSEMIDE 40 MG/4 ML VIAL IV SCH (09:02)
[2018-07-12] MEDS: VANCOMYCIN INJ 1,000 MG in SODIUM CHLORIDE 0.9% 250 ML IV SCH (09:05)
[2018-07-12 13:42] VITALS: BP 149/86
== END 2018-07-12 15:17 | disposition home or self-care (01) | DRG 661 ==
LOC: N.ED 11:03 → N.EDINP 16:14 → N.5E 18:21 → N.CC 07-07 02:00 → N.2E 07-10 10:29
PROVIDERS: ADMIT Internal Medicine; ATTEND Internal Medicine

== ENCOUNTER 2018-08-18 10:12 | Inpatient (IN) ==
[2018-08-18] MEDS ORDERED: ONDANSETRON 4 MG/2 ML VIAL IV PRN (14:50)
[2018-08-18 15:43] LABS: Basophils % 0.2 % (0.0-0.8); Eosinophils # 0.1 10*3/uL (0.0-0.87); Hematocrit 22.4 VOL% (35.7-47.0); Hemoglobin 7.1 GM/DL (12.0-16.0); Immature Granulocytes % 0.3 %; Immature Granulocytes Absolute 0.02 #; Lymphocytes # 0.9 10*3/uL (1.4-4.0); Lymphocytes % 13.1 % (21.3-54.2); Mean Corpuscular HGB Conc 31.7 GM/DL (32-36); Mean Corpuscular Volume 94.5 FL (87-102); Neutrophils % 72.4 % (38.7-73.9); Platelet Count 283 T/CUMM (130-400); Red Blood Count 2.37 MC/CUMM (3.8-5.5); Red Cell Distribution Width 18.4 % (9.3-17.3); White Blood Count 6.6 T/CUMM (4-12)
[2018-08-18] MEDS ORDERED: DEXTROSE 10% 250 ML BAG IV PRN (15:49)
[2018-08-18] MEDS ORDERED: GLUCAGON 1 MG VIAL IM PRN (15:49)
[2018-08-18 16:08] LABS: Albumin 2.1 G/DL (3.4-5.0); Bilirubin,Total 0.4 MG/DL (0.2-1.0); Calcium 8.5 MG/DL (8.5-10.1); Osmolality,Calculated 288.4 MOS/KG (273-304); Thyroid Stimulating Hormone 2.08 uIU/ml (0.358-3.74); Total Protein 6.1 G/DL (6.4-8.3)
[2018-08-18] MEDS: CLINDAMYCIN INJ 600 MG in PREMIX 1 EACH IV SCH (16:53)
[2018-08-18] MEDS ORDERED: LACTULOSE 20 GM/30 ML UDCUP PO PRN (17:10)
[2018-08-18] MEDS: DOCUSATE SODIUM 100 MG CAPSULE PO SCH (23:41)
[2018-08-18] MEDS: levETIRAcetam 250 MG TABLET PO SCH (23:41)
[2018-08-19] MEDS: ENOXAPARIN 30 MG/0.3 ML SYRINGE SUBCUT SCH ×2 (01:31→22:44)
[2018-08-19] MEDS: CLINDAMYCIN INJ 600 MG in PREMIX 1 EACH IV SCH ×3 (01:36→16:27)
[2018-08-19 05:48] LABS: Basophils % 0.2 % (0.0-0.8); Eosinophils # 0.2 10*3/uL (0.0-0.87); Eosinophils % 3.3 % (0.00-10.9); Hematocrit 22.5 VOL% (35.7-47.0); Hemoglobin 7.4 GM/DL (12.0-16.0); Immature Granulocytes % 0.4 %; Immature Granulocytes Absolute 0.02 #; Lymphocytes % 17.9 % (21.3-54.2); Mean Corpuscular HGB Conc 32.9 GM/DL (32-36); Mean Corpuscular Volume 91.5 FL (87-102); Mean Platelet Volume 10.4 FL (9.6-12.0); Monocytes % 13.9 % (1.7-12.7); Neutrophils % 64.3 % (38.7-73.9); Platelet Count 294 T/CUMM (130-400); Red Blood Count 2.46 MC/CUMM (3.8-5.5); Red Cell Distribution Width 18.4 % (9.3-17.3); White Blood Count 5.5 T/CUMM (4-12)
[2018-08-19 06:13] LABS: Albumin 2.1 G/DL (3.4-5.0); Bilirubin,Total 0.6 MG/DL (0.2-1.0); Calcium 8.7 MG/DL (8.5-10.1); Osmolality,Calculated 285.4 MOS/KG (273-304); Risk Ratio 2.87; Total Protein 6.3 G/DL (6.4-8.3); VLDL CHOLESTEROL 13.4 MG/DL
[2018-08-19] MEDS: METOCLOPRAMIDE 5 MG TABLET PO SCH ×2 (09:24→16:27)
[2018-08-19] MEDS: DOCUSATE SODIUM 100 MG CAPSULE PO SCH ×2 (09:24→22:44)
[2018-08-19] MEDS: PANTOPRAZOLE 40 MG TABLET PO SCH (09:25)
[2018-08-19] MEDS: levETIRAcetam 250 MG TABLET PO SCH ×2 (09:25→22:44)
[2018-08-19] MEDS: POLYETHYLENE GLYCOL POWDER 17 GM PACK PO SCH (09:25)
[2018-08-19] MEDS: CLOPIDOGREL 75 MG TABLET PO SCH (09:25)
[2018-08-19] MEDS ORDERED: LIDOCAINE 1% 20 ML VIAL ONE (12:31)
[2018-08-19] MEDS ORDERED: SODIUM CHLORIDE 0.9% 250 ML IV SCH (13:30)
[2018-08-19] MEDS ORDERED: PROPOFOL 200 MG/20 ML VIAL IV ONE (13:56)
[2018-08-19] MEDS ORDERED: MIDAZOLAM 2 MG/2 ML VIAL ONE (13:57)
[2018-08-19] MEDS ORDERED: fentaNYL 100 MCG/2 ML VIAL ONE (13:57)
[2018-08-19] MEDS: SODIUM CHLORIDE 0.45% 1,000 ML IV SCH (14:59)
[2018-08-20] MEDS: SODIUM CHLORIDE 0.45% 1,000 ML IV SCH ×2 (01:03→12:30)
[2018-08-20] MEDS: CLINDAMYCIN INJ 600 MG in PREMIX 1 EACH IV SCH ×3 (01:03→16:03)
[2018-08-20 08:01] LABS: Basophils % 0.3 % (0.0-0.8); Eosinophils # 0.3 10*3/uL (0.0-0.87); Eosinophils % 4.5 % (0.00-10.9); Hematocrit 20.2 VOL% (35.7-47.0); Immature Granulocytes % 0.5 %; Immature Granulocytes Absolute 0.03 #; Lymphocytes # 1.1 10*3/uL (1.4-4.0); Lymphocytes % 17.8 % (21.3-54.2); Mean Corpuscular HGB Conc 32.7 GM/DL (32-36); Mean Corpuscular Volume 93.1 FL (87-102); Monocytes % 14.2 % (1.7-12.7); Neutrophils % 62.7 % (38.7-73.9); Platelet Count 305 T/CUMM (130-400); Red Blood Count 2.17 MC/CUMM (3.8-5.5)
[2018-08-20 08:05] LABS: Hemoglobin 6.6 GM/DL (12.0-16.0)
[2018-08-20 08:23] LABS: Calcium 8.2 MG/DL (8.5-10.1); Osmolality,Calculated 290.2 MOS/KG (273-304)
[2018-08-20] MEDS: DOCUSATE SODIUM 100 MG CAPSULE PO SCH ×2 (08:53→20:59)
[2018-08-20] MEDS: METOCLOPRAMIDE 5 MG TABLET PO SCH ×2 (08:53→16:00)
[2018-08-20] MEDS: POLYETHYLENE GLYCOL POWDER 17 GM PACK PO SCH (08:53)
[2018-08-20] MEDS: PANTOPRAZOLE 40 MG TABLET PO SCH (08:53)
[2018-08-20] MEDS: levETIRAcetam 250 MG TABLET PO SCH ×2 (08:53→20:59)
[2018-08-20] MEDS: CLOPIDOGREL 75 MG TABLET PO SCH (08:53)
[2018-08-20] MEDS ORDERED: SODIUM CHLORIDE 0.9% 1,000 ML IV PRN ×2 (11:11→12:46)
[2018-08-20] MEDS: ALBUMIN 25% 25 GM in PREMIX 1 EACH IV SCH ×2 (12:31→21:43)
[2018-08-20] MEDS: ENOXAPARIN 30 MG/0.3 ML SYRINGE SUBCUT SCH (20:59)
[2018-08-21] MEDS: CLINDAMYCIN INJ 600 MG in PREMIX 1 EACH IV SCH ×3 (00:27→16:18)
[2018-08-21 03:10] LABS: Basophils % 0.4 % (0.0-0.8); Eosinophils # 0.2 10*3/uL (0.0-0.87); Eosinophils % 4.6 % (0.00-10.9); Hematocrit 23.7 VOL% (35.7-47.0); Hemoglobin 7.8 GM/DL (12.0-16.0); Immature Granulocytes % 0.4 %; Immature Granulocytes Absolute 0.02 #; Lymphocytes # 1.1 10*3/uL (1.4-4.0); Lymphocytes % 20.5 % (21.3-54.2); Mean Corpuscular HGB Conc 32.9 GM/DL (32-36); Mean Corpuscular Volume 87.8 FL (87-102); Monocytes % 14.1 % (1.7-12.7); Platelet Count 281 T/CUMM (130-400); Red Cell Distribution Width 18.3 % (9.3-17.3); White Blood Count 5.2 T/CUMM (4-12)
[2018-08-21 03:31] LABS: Calcium 8.3 MG/DL (8.5-10.1); Osmolality,Calculated 288.1 MOS/KG (273-304)
[2018-08-21] MEDS: ALBUMIN 25% 25 GM in PREMIX 1 EACH IV SCH ×2 (04:07→12:18)
[2018-08-21] MEDS: METOCLOPRAMIDE 5 MG TABLET PO SCH ×2 (07:15→16:18)
[2018-08-21] MEDS: SODIUM CHLORIDE 0.9% 1,000 ML IV SCH ×2 (07:17→22:37)
[2018-08-21] MEDS: PANTOPRAZOLE 40 MG TABLET PO SCH (08:09)
[2018-08-21] MEDS: DOCUSATE SODIUM 100 MG CAPSULE PO SCH ×2 (08:09→22:38)
[2018-08-21] MEDS: amLODIPine 5 MG TABLET PO SCH (08:09)
[2018-08-21] MEDS: POLYETHYLENE GLYCOL POWDER 17 GM PACK PO SCH (08:09)
[2018-08-21] MEDS: levETIRAcetam 250 MG TABLET PO SCH ×2 (08:09→22:38)
[2018-08-21] MEDS: CLOPIDOGREL 75 MG TABLET PO SCH (08:09)
[2018-08-21] MEDS: hydrALAZINE 20 MG/1 ML VIAL IV PRN ×2 (12:13→16:16)
[2018-08-21] MEDS: ENOXAPARIN 30 MG/0.3 ML SYRINGE SUBCUT SCH (22:46)
[2018-08-21] MEDS ORDERED: FUROSEMIDE 40 MG/4 ML VIAL IV ONE (23:32)
[2018-08-22 00:27] LABS: Albumin 2.9 G/DL (3.4-5.0); Bilirubin,Total 0.8 MG/DL (0.2-1.0); Calcium 8.5 MG/DL (8.5-10.1); Total Protein 6.7 G/DL (6.4-8.3)
[2018-08-22] MEDS: ALBUMIN 25% 25 GM in PREMIX 1 EACH IV SCH ×2 (00:52→06:45)
[2018-08-22] MEDS: hydrALAZINE 20 MG/1 ML VIAL IV PRN ×3 (00:59→20:15)
[2018-08-22] MEDS: CLINDAMYCIN INJ 600 MG in PREMIX 1 EACH IV SCH ×3 (02:08→17:39)
[2018-08-22 06:07] LABS: Basophils % 0.2 % (0.0-0.8); Eosinophils # 0.3 10*3/uL (0.0-0.87); Eosinophils % 4.5 % (0.00-10.9); Hematocrit 25.7 VOL% (35.7-47.0); Hemoglobin 8.3 GM/DL (12.0-16.0); Immature Granulocytes % 0.4 %; Immature Granulocytes Absolute 0.02 #; Lymphocytes # 1.1 10*3/uL (1.4-4.0); Lymphocytes % 18.8 % (21.3-54.2); Mean Corpuscular HGB Conc 32.3 GM/DL (32-36); Mean Corpuscular Volume 89.5 FL (87-102); Mean Platelet Volume 9.9 FL (9.6-12.0); Monocytes % 12.9 % (1.7-12.7); Neutrophils % 63.2 % (38.7-73.9); Platelet Count 317 T/CUMM (130-400); Red Blood Count 2.87 MC/CUMM (3.8-5.5); Red Cell Distribution Width 18.6 % (9.3-17.3); White Blood Count 5.6 T/CUMM (4-12)
[2018-08-22] MEDS ORDERED: ALBUMIN 25% 25 GM/100 ML VIAL IV ONE (06:07)
[2018-08-22 06:33] LABS: Calcium 8.6 MG/DL (8.5-10.1); Osmolality,Calculated 290.1 MOS/KG (273-304)
[2018-08-22] MEDS: METOCLOPRAMIDE 5 MG TABLET PO SCH ×2 (07:43→17:38)
[2018-08-22] MEDS: CLOPIDOGREL 75 MG TABLET PO SCH (08:27)
[2018-08-22] MEDS: DOCUSATE SODIUM 100 MG CAPSULE PO SCH ×2 (08:27→21:22)
[2018-08-22] MEDS: PANTOPRAZOLE 40 MG TABLET PO SCH (08:27)
[2018-08-22] MEDS: levETIRAcetam 250 MG TABLET PO SCH ×2 (08:27→21:23)
[2018-08-22] MEDS: amLODIPine 5 MG TABLET PO SCH (08:27)
[2018-08-22] MEDS: POLYETHYLENE GLYCOL POWDER 17 GM PACK PO SCH (08:28)
[2018-08-22] MEDS: amLODIPine 10 MG TABLET PO SCH (11:15)
[2018-08-22] MEDS: ENOXAPARIN 30 MG/0.3 ML SYRINGE SUBCUT SCH (21:24)
[2018-08-23] MEDS: INSULIN GLARGINE 100 UNIT/ML SUBCUT SCH ×2 (00:26→20:59)
[2018-08-23] MEDS: CLINDAMYCIN INJ 600 MG in PREMIX 1 EACH IV SCH ×3 (00:34→17:29)
[2018-08-23 04:50] LABS: Basophils % 0.3 % (0.0-0.8); Eosinophils # 0.2 10*3/uL (0.0-0.87); Hematocrit 23.1 VOL% (35.7-47.0); Hemoglobin 7.5 GM/DL (12.0-16.0); Immature Granulocytes % 0.5 %; Immature Granulocytes Absolute 0.03 #; Lymphocytes % 16.1 % (21.3-54.2); Mean Corpuscular HGB Conc 32.5 GM/DL (32-36); Mean Corpuscular Volume 90.2 FL (87-102); Mean Platelet Volume 10.1 FL (9.6-12.0); Monocytes % 11.3 % (1.7-12.7); Neutrophils % 68.8 % (38.7-73.9); Platelet Count 327 T/CUMM (130-400); Red Blood Count 2.56 MC/CUMM (3.8-5.5); Red Cell Distribution Width 18.5 % (9.3-17.3)
[2018-08-23 05:05] LABS: Calcium 8.9 MG/DL (8.5-10.1); Osmolality,Calculated 295.7 MOS/KG (273-304)
[2018-08-23] MEDS: levETIRAcetam 250 MG TABLET PO SCH ×2 (10:30→20:58)
[2018-08-23] MEDS: METOCLOPRAMIDE 5 MG TABLET PO SCH ×2 (10:31→17:29)
[2018-08-23] MEDS: POLYETHYLENE GLYCOL POWDER 17 GM PACK PO SCH (10:31)
[2018-08-23] MEDS: CLOPIDOGREL 75 MG TABLET PO SCH (10:31)
[2018-08-23] MEDS: PANTOPRAZOLE 40 MG TABLET PO SCH (10:31)
[2018-08-23] MEDS: DOCUSATE SODIUM 100 MG CAPSULE PO SCH ×2 (10:31→20:59)
[2018-08-23] MEDS: amLODIPine 10 MG TABLET PO SCH (10:31)
[2018-08-23] MEDS ORDERED: SODIUM CHLORIDE 0.9% 1,000 ML IV PRN (11:23)
[2018-08-23] MEDS: ALBUTEROL/IPRATROPIUM 3 ML NEB RESP TX SCH ×2 (14:34→21:27)
[2018-08-23] MEDS: ENOXAPARIN 30 MG/0.3 ML SYRINGE SUBCUT SCH (20:59)
[2018-08-23 22:01] LABS: Hematocrit 26.8 VOL% (35.7-47.0); Hemoglobin 8.7 GM/DL (12.0-16.0)
[2018-08-24] MEDS: ALBUTEROL/IPRATROPIUM 3 ML NEB RESP TX SCH ×7 (00:45→23:06)
[2018-08-24] MEDS: CLINDAMYCIN INJ 600 MG in PREMIX 1 EACH IV SCH ×3 (01:08→16:06)
[2018-08-24] MEDS: CLOPIDOGREL 75 MG TABLET PO SCH (08:08)
[2018-08-24] MEDS: amLODIPine 10 MG TABLET PO SCH (08:08)
[2018-08-24] MEDS: levETIRAcetam 250 MG TABLET PO SCH ×2 (08:09→21:28)
[2018-08-24] MEDS: PANTOPRAZOLE 40 MG TABLET PO SCH (08:09)
[2018-08-24] MEDS: POLYETHYLENE GLYCOL POWDER 17 GM PACK PO SCH (08:09)
[2018-08-24] MEDS: DOCUSATE SODIUM 100 MG CAPSULE PO SCH ×2 (08:09→21:28)
[2018-08-24] MEDS: METOCLOPRAMIDE 5 MG TABLET PO SCH ×2 (08:15→16:06)
[2018-08-24] MEDS: INSULIN GLARGINE 100 UNIT/ML SUBCUT SCH (21:28)
[2018-08-24] MEDS: ENOXAPARIN 30 MG/0.3 ML SYRINGE SUBCUT SCH (21:28)
[2018-08-25] MEDS: CLINDAMYCIN INJ 600 MG in PREMIX 1 EACH IV SCH ×2 (01:30→08:17)
[2018-08-25] MEDS: ALBUTEROL/IPRATROPIUM 3 ML NEB RESP TX SCH ×2 (02:55→07:37)
[2018-08-25 05:04] LABS: Basophils % 0.3 % (0.0-0.8); Calcium 9.2 MG/DL (8.5-10.1); Eosinophils # 0.2 10*3/uL (0.0-0.87); Eosinophils % 2.8 % (0.00-10.9); Hematocrit 26.1 VOL% (35.7-47.0); Hemoglobin 8.4 GM/DL (12.0-16.0); Immature Granulocytes % 0.3 %; Immature Granulocytes Absolute 0.02 #; Lymphocytes # 1.1 10*3/uL (1.4-4.0); Mean Corpuscular HGB Conc 32.2 GM/DL (32-36); Mean Platelet Volume 10.4 FL (9.6-12.0); Monocytes % 11.8 % (1.7-12.7); Neutrophils % 68.8 % (38.7-73.9); Osmolality,Calculated 298.4 MOS/KG (273-304); Platelet Count 380 T/CUMM (130-400); Red Cell Distribution Width 18.9 % (9.3-17.3); White Blood Count 6.7 T/CUMM (4-12)
[2018-08-25] MEDS: METOCLOPRAMIDE 5 MG TABLET PO SCH (08:17)
[2018-08-25] MEDS: POLYETHYLENE GLYCOL POWDER 17 GM PACK PO SCH (08:17)
[2018-08-25] MEDS: PANTOPRAZOLE 40 MG TABLET PO SCH (08:17)
[2018-08-25] MEDS: levETIRAcetam 250 MG TABLET PO SCH (08:18)
[2018-08-25] MEDS: CLOPIDOGREL 75 MG TABLET PO SCH (08:18)
[2018-08-25] MEDS: DOCUSATE SODIUM 100 MG CAPSULE PO SCH (08:18)
[2018-08-25] MEDS: amLODIPine 10 MG TABLET PO SCH (08:18)
[2018-08-25 12:16] VITALS: BP 152/88
== END 2018-08-25 14:28 | disposition home health service (06) | DRG 180 ==
LOC: N.TELES → SUATTDRO 15:51
PROVIDERS: ADMIT Internal Medicine; ATTEND Emergency Medicine

== ENCOUNTER 2018-08-27 14:38 | Observation (INO) ==
[2018-08-27 16:15] LABS: Amorphous Crystals,Urine Occasional /HPF (Few); Apearance,Urine CLOUDY (Clear); Bilirubin,Urine Negative (Negative); Blood, Urine Negative (Negative); Glucose,Urine (UA) Negative (Negative); Hyaline Casts,Urine 18 /LPF (0-3); Ketones,Urine Negative (Negative); Mucus,Urine Occasional /LPF (Occasional); Nitrite,Urine Negative (Negative); Protein,Urine 100 MG/DL; Squamous Epithelial Cell,Urine Occasional /HPF (0-10); Urine Color Amber (Yellow); Urine Specific Gravity 1.014 (1.001-1.035); Urine Urobilinogen < 2.0 EU/DL (0.2-1.0); WBC,Urine 83 /HPF (0-6)
[2018-08-27 16:22] LABS: Barbiturates Screen,Urine Negative (Negative); Benzodiazepines Screen,Urine Positive (Negative); Cannabinoid Screen,Urine Negative (Negative); Opiate Screen,Urine Negative (Negative); Phencyclidine Screen,Urine Negative (Negative)
[2018-08-27 16:24] LABS: Basophils % 0.5 % (0.0-0.8); Eosinophils # 0.2 10*3/uL (0.0-0.87); Eosinophils % 3.6 % (0.00-10.9); Hematocrit 27.3 VOL% (35.7-47.0); Hemoglobin 8.5 GM/DL (12.0-16.0); Immature Granulocytes % 0.3 %; Immature Granulocytes Absolute 0.02 #; Lymphocytes % 16.7 % (21.3-54.2); Mean Corpuscular HGB Conc 31.1 GM/DL (32-36); Mean Corpuscular Volume 93.2 FL (87-102); Mean Platelet Volume 9.9 FL (9.6-12.0); Monocytes % 10.7 % (1.7-12.7); Neutrophils % 68.2 % (38.7-73.9); Platelet Count 415 T/CUMM (130-400); Red Blood Count 2.93 MC/CUMM (3.8-5.5); Red Cell Distribution Width 19.1 % (9.3-17.3); White Blood Count 6.2 T/CUMM (4-12)
[2018-08-27 16:49] LABS: Albumin 2.8 G/DL (3.4-5.0); Bilirubin,Total 1.1 MG/DL (0.2-1.0); Calcium 9.1 MG/DL (8.5-10.1); Osmolality,Calculated 298.4 MOS/KG (273-304); Total Protein 6.8 G/DL (6.4-8.3)
[2018-08-27] MEDS ORDERED: LEVOFLOXACIN INJ 250 MG in PREMIX 1 EACH IV STA (17:37)
[2018-08-27] MEDS ORDERED: ACETAMINOPHEN 325 MG TABLET PO PRN (18:46)
[2018-08-27] MEDS ORDERED: NITROGLYCERIN SL 0.4 MG TABLET SL PRN (18:49)
[2018-08-27] MEDS ORDERED: LACTULOSE 20 GM/30 ML UDCUP PO PRN (18:49)
[2018-08-27] MEDS ORDERED: MECLIZINE 12.5 MG TABLET PO PRN (18:49)
[2018-08-27] MEDS ORDERED: SODIUM CHLORIDE 0.9% 1,000 ML IV SCH (19:00)
[2018-08-27] MEDS ORDERED: INSULIN GLARGINE 100 UNIT/ML SUBCUT SCH (21:00)
[2018-08-27] MEDS ORDERED: GABAPENTIN 300 MG CAPSULE PO SCH (21:00)
[2018-08-27] MEDS ORDERED: ENOXAPARIN 30 MG/0.3 ML SYRINGE SUBCUT SCH (21:00)
[2018-08-27] MEDS ORDERED: SIMVASTATIN 20 MG TABLET PO SCH (21:00)
[2018-08-27] MEDS: DOXAZOSIN 4 MG TABLET PO SCH (23:57)
[2018-08-27] MEDS: DOCUSATE SODIUM 100 MG CAPSULE PO SCH (23:57)
[2018-08-27] MEDS: LUBIPROSTONE 24 MCG CAPSULE PO SCH (23:57)
[2018-08-27] MEDS: CARVEDILOL 25 MG TABLET PO SCH (23:57)
[2018-08-27] MEDS: PANTOPRAZOLE 40 MG TABLET PO SCH (23:58)
[2018-08-27] MEDS: PHENYTOIN ER 100 MG CAPSULE PO SCH (23:58)
[2018-08-27] MEDS: levETIRAcetam 250 MG TABLET PO SCH (23:58)
[2018-08-27] MEDS: ASCORBIC ACID 500 MG TABLET PO SCH (23:59)
[2018-08-28] MEDS ORDERED: hydrALAZINE 20 MG/1 ML VIAL IV PRN (04:10)
[2018-08-28 05:09] LABS: Calcium 9.4 MG/DL (8.5-10.1); Osmolality,Calculated 295.4 MOS/KG (273-304)
[2018-08-28] MEDS ORDERED: TORSEMIDE 20 MG TABLET PO SCH (09:00)
[2018-08-28] MEDS ORDERED: ISOSORBIDE MONONITRATE 60 MG TABLET PO SCH (09:00)
[2018-08-28] MEDS ORDERED: POLYETHYLENE GLYCOL POWDER 17 GM PACK PO SCH (09:00)
[2018-08-28] MEDS ORDERED: ASPIRIN 325 MG TABLET PO SCH (09:00)
[2018-08-28] MEDS ORDERED: VENLAFAXINE 75 MG TABLET PO SCH (09:00)
[2018-08-28] MEDS ORDERED: CITALOPRAM 20 MG TABLET PO SCH (09:00)
[2018-08-28] MEDS ORDERED: CLOPIDOGREL 75 MG TABLET PO SCH (09:00)
[2018-08-28] MEDS: LUBIPROSTONE 24 MCG CAPSULE PO SCH (09:00)
[2018-08-28] MEDS ORDERED: METOCLOPRAMIDE 5 MG TABLET PO SCH (09:00)
[2018-08-28] MEDS: levETIRAcetam 250 MG TABLET PO SCH (09:01)
[2018-08-28] MEDS: DOXAZOSIN 4 MG TABLET PO SCH (09:01)
[2018-08-28] MEDS: DOCUSATE SODIUM 100 MG CAPSULE PO SCH (09:02)
[2018-08-28] MEDS: PANTOPRAZOLE 40 MG TABLET PO SCH (09:02)
[2018-08-28] MEDS: PHENYTOIN ER 100 MG CAPSULE PO SCH (09:02)
[2018-08-28] MEDS: ASCORBIC ACID 500 MG TABLET PO SCH (09:02)
[2018-08-28] MEDS: CARVEDILOL 25 MG TABLET PO SCH (09:03)
[2018-08-28 12:17] VITALS: BP 127/68
== END 2018-08-28 12:51 | disposition home health service (06) ==
LOC: N.EDINP 14:38 → N.ED 14:38 → N.5E 19:21
PROVIDERS: ADMIT Internal Medicine; ATTEND Internal Medicine

== ENCOUNTER 2018-09-08 14:45 | Inpatient (IN) ==
[2018-09-08] MEDS ORDERED: FUROSEMIDE 20 MG/2 ML VIAL IV STA (15:33)
[2018-09-08 16:01] LABS: Basophils % 0.3 % (0.0-0.8); Eosinophils # 0.1 10*3/uL (0.0-0.87); Eosinophils % 1.2 % (0.00-10.9); Hematocrit 27.6 VOL% (35.7-47.0); Hemoglobin 8.5 GM/DL (12.0-16.0); Immature Granulocytes % 0.6 %; Immature Granulocytes Absolute 0.04 #; Lymphocytes % 14.1 % (21.3-54.2); Mean Corpuscular HGB Conc 30.8 GM/DL (32-36); Mean Corpuscular Volume 97.9 FL (87-102); Mean Platelet Volume 10.5 FL (9.6-12.0); Monocytes % 9.2 % (1.7-12.7); Neutrophils % 74.6 % (38.7-73.9); Platelet Count 356 T/CUMM (130-400); Red Blood Count 2.82 MC/CUMM (3.8-5.5); Red Cell Distribution Width 20.3 % (9.3-17.3); White Blood Count 7.3 T/CUMM (4-12)
[2018-09-08 16:06] LABS: Apearance,Urine CLOUDY (Clear); Bilirubin,Urine Negative (Negative); Blood, Urine Negative (Negative); Glucose,Urine (UA) Negative (Negative); Ketones,Urine Negative (Negative); Nitrite,Urine Negative (Negative); Protein,Urine 100 MG/DL; RBC,Urine 18 /HPF (0-4); Urine Color Yellow (Yellow); Urine Urobilinogen < 2.0 EU/DL (0.2-1.0); WBC,Urine 3805 /HPF (0-6)
[2018-09-08 16:26] LABS: Alanine Aminotransferase 10 U/L (13-56); Albumin 2.7 G/DL (3.4-5.0); Alkaline Phosphatase 792 U/L (45-117); Amylase 28 U/L (25-115); Aspartate Amino Transferase 14 U/L (0-37); Blood Urea Nitrogen 56 MG/DL (7-18); Calcium 8.9 MG/DL (8.5-10.1); Glucose 190 MG/DL (74-106); Osmolality,Calculated 306.8 MOS/KG (273-304); Total Protein 6.9 G/DL (6.4-8.3); Troponin I < 0.015 NG/ML (0.00-0.045)
[2018-09-08 16:40] LABS: INR 1.1; PT Patient Result 11.8 SECS; Partial Thromboplastin Time 27.8 SECS (0-40)
[2018-09-08] MEDS ORDERED: ONDANSETRON 4 MG/2 ML VIAL IV PRN (17:23)
[2018-09-08] MEDS ORDERED: ACETAMINOPHEN 325 MG TABLET PO PRN (17:23)
[2018-09-08] MEDS ORDERED: NITROGLYCERIN SL 0.4 MG TABLET SL PRN (17:30)
[2018-09-08] MEDS ORDERED: DEXTROSE 50% 25 GM/50 ML VIAL IV PRN (17:49)
[2018-09-08] MEDS ORDERED: GLUCAGON 1 MG VIAL IM PRN (17:49)
[2018-09-08] MEDS ORDERED: ALBUTEROL/IPRATROPIUM 3 ML NEB RESP TX PRN (17:57)
[2018-09-08] MEDS ORDERED: cefTRIAXone 1,000 MG in SYRINGE 1 EACH IV SCH (18:00)
[2018-09-08] MEDS ORDERED: AZITHROMYCIN INJ 500 MG in SODIUM CHLORIDE 0.9% 250 ML IV SCH (18:00)
[2018-09-08] MEDS: DOCUSATE SODIUM 100 MG CAPSULE PO SCH (20:51)
[2018-09-08] MEDS: GABAPENTIN 300 MG CAPSULE PO SCH (20:52)
[2018-09-08] MEDS: levETIRAcetam 250 MG TABLET PO SCH (20:52)
[2018-09-08] MEDS: ASCORBIC ACID 500 MG TABLET PO SCH (20:53)
[2018-09-08] MEDS: CARVEDILOL 25 MG TABLET PO SCH (20:55)
[2018-09-08] MEDS: cloNIDine 0.1 MG TABLET PO SCH (20:55)
[2018-09-08] MEDS: SIMVASTATIN 20 MG TABLET PO SCH (20:56)
[2018-09-08] MEDS: PHENYTOIN ER 100 MG CAPSULE PO SCH (20:56)
[2018-09-08] MEDS: FUROSEMIDE 20 MG/2 ML VIAL IV SCH (20:58)
[2018-09-08] MEDS ORDERED: INSULIN GLARGINE 100 UNIT/ML SUBCUT SCH (21:00)
[2018-09-08] MEDS: INSULIN LISPRO 100 UNIT/ML SUBCUT SCH (21:55)
[2018-09-09 06:06] LABS: Basophils % 0.3 % (0.0-0.8); Eosinophils # 0.2 10*3/uL (0.0-0.87); Eosinophils % 3.1 % (0.00-10.9); Hematocrit 25.5 VOL% (35.7-47.0); Hemoglobin 8.1 GM/DL (12.0-16.0); Immature Granulocytes % 0.5 %; Immature Granulocytes Absolute 0.03 #; Lymphocytes # 1.4 10*3/uL (1.4-4.0); Lymphocytes % 23.9 % (21.3-54.2); Mean Corpuscular HGB Conc 31.8 GM/DL (32-36); Mean Corpuscular Volume 96.2 FL (87-102); Mean Platelet Volume 10.8 FL (9.6-12.0); Neutrophils % 60.2 % (38.7-73.9); Platelet Count 333 T/CUMM (130-400); Red Blood Count 2.65 MC/CUMM (3.8-5.5); Red Cell Distribution Width 20.6 % (9.3-17.3); White Blood Count 5.9 T/CUMM (4-12)
[2018-09-09 06:16] LABS: Calcium 8.6 MG/DL (8.5-10.1); Osmolality,Calculated 304.6 MOS/KG (273-304); Thyroid Stimulating Hormone 2.96 uIU/ml (0.358-3.74)
[2018-09-09] MEDS ORDERED: FUROSEMIDE 40 MG/4 ML VIAL IV SCH (09:00)
[2018-09-09] MEDS: PANTOPRAZOLE 40 MG TABLET PO SCH (09:46)
[2018-09-09] MEDS: CLOPIDOGREL 75 MG TABLET PO SCH (09:46)
[2018-09-09] MEDS: levETIRAcetam 250 MG TABLET PO SCH ×2 (09:46→20:57)
[2018-09-09] MEDS: DOCUSATE SODIUM 100 MG CAPSULE PO SCH ×2 (09:46→20:58)
[2018-09-09] MEDS: ISOSORBIDE MONONITRATE 60 MG TABLET PO SCH (09:46)
[2018-09-09] MEDS: PHENYTOIN ER 100 MG CAPSULE PO SCH ×2 (09:46→20:53)
[2018-09-09] MEDS: VENLAFAXINE XR 75 MG CAPSULE PO SCH (09:46)
[2018-09-09] MEDS: cloNIDine 0.1 MG TABLET PO SCH ×2 (09:46→20:57)
[2018-09-09] MEDS: FUROSEMIDE 20 MG/2 ML VIAL IV SCH ×2 (09:47→20:58)
[2018-09-09] MEDS: CITALOPRAM 20 MG TABLET PO SCH (09:47)
[2018-09-09] MEDS: CARVEDILOL 25 MG TABLET PO SCH ×2 (09:47→20:58)
[2018-09-09] MEDS ORDERED: DEXTROSE 10% 250 ML IV ONE (09:51)
[2018-09-09] MEDS: ASCORBIC ACID 500 MG TABLET PO SCH ×2 (10:00→20:51)
[2018-09-09] MEDS ORDERED: DEXTROSE 10% 250 ML IV PRN ×2 (10:05→11:07)
[2018-09-09] MEDS: METOCLOPRAMIDE 5 MG TABLET PO SCH (10:13)
[2018-09-09] MEDS: INSULIN LISPRO 100 UNIT/ML SUBCUT SCH ×2 (10:13→11:28)
[2018-09-09] MEDS ORDERED: DEXTROSE 10% 1,000 ML IV SCH (12:00)
[2018-09-09] MEDS: GABAPENTIN 300 MG CAPSULE PO SCH (20:52)
[2018-09-09] MEDS: ZINC OXIDE PASTE 113 GM TUBE TOP SCH (21:03)
[2018-09-09] MEDS: SIMVASTATIN 20 MG TABLET PO SCH (22:50)
[2018-09-10 05:07] LABS: Basophils % 0.2 % (0.0-0.8); Eosinophils # 0.2 10*3/uL (0.0-0.87); Hematocrit 24.8 VOL% (35.7-47.0); Hemoglobin 7.7 GM/DL (12.0-16.0); Immature Granulocytes % 0.5 %; Immature Granulocytes Absolute 0.03 #; Lymphocytes # 1.1 10*3/uL (1.4-4.0); Lymphocytes % 18.1 % (21.3-54.2); Mean Corpuscular Volume 95.8 FL (87-102); Mean Platelet Volume 10.7 FL (9.6-12.0); Monocytes % 10.7 % (1.7-12.7); Neutrophils % 67.5 % (38.7-73.9); Platelet Count 337 T/CUMM (130-400); Red Blood Count 2.59 MC/CUMM (3.8-5.5); White Blood Count 6.2 T/CUMM (4-12)
[2018-09-10 05:15] LABS: Calcium 8.3 MG/DL (8.5-10.1); Osmolality,Calculated 298.1 MOS/KG (273-304)
[2018-09-10] MEDS: ISOSORBIDE MONONITRATE 60 MG TABLET PO SCH (08:57)
[2018-09-10] MEDS: VENLAFAXINE XR 75 MG CAPSULE PO SCH (08:57)
[2018-09-10] MEDS: CARVEDILOL 25 MG TABLET PO SCH ×2 (08:57→20:51)
[2018-09-10] MEDS: CITALOPRAM 20 MG TABLET PO SCH (08:57)
[2018-09-10] MEDS: PHENYTOIN ER 100 MG CAPSULE PO SCH ×2 (08:57→20:50)
[2018-09-10] MEDS: CLOPIDOGREL 75 MG TABLET PO SCH (08:57)
[2018-09-10] MEDS: levETIRAcetam 250 MG TABLET PO SCH ×2 (08:58→20:52)
[2018-09-10] MEDS: cloNIDine 0.1 MG TABLET PO SCH ×2 (08:58→20:51)
[2018-09-10] MEDS: DOCUSATE SODIUM 100 MG CAPSULE PO SCH ×2 (08:58→20:53)
[2018-09-10] MEDS: PANTOPRAZOLE 40 MG TABLET PO SCH (08:58)
[2018-09-10] MEDS: ASCORBIC ACID 500 MG TABLET PO SCH ×2 (08:58→20:50)
[2018-09-10] MEDS: METOCLOPRAMIDE 5 MG TABLET PO SCH (08:58)
[2018-09-10] MEDS: FUROSEMIDE 100 MG/10 ML VIAL IV SCH ×2 (09:03→16:20)
[2018-09-10] MEDS: ZINC OXIDE PASTE 113 GM TUBE TOP SCH ×2 (09:17→20:55)
[2018-09-10] MEDS: GABAPENTIN 300 MG CAPSULE PO SCH (20:48)
[2018-09-10] MEDS: SIMVASTATIN 20 MG TABLET PO SCH (20:52)
[2018-09-11 05:07] LABS: Basophils % 0.3 % (0.0-0.8); Eosinophils # 0.2 10*3/uL (0.0-0.87); Eosinophils % 2.7 % (0.00-10.9); Hematocrit 24.9 VOL% (35.7-47.0); Hemoglobin 7.6 GM/DL (12.0-16.0); Immature Granulocytes % 0.5 %; Immature Granulocytes Absolute 0.03 #; Lymphocytes # 0.9 10*3/uL (1.4-4.0); Mean Corpuscular HGB Conc 30.5 GM/DL (32-36); Mean Platelet Volume 10.8 FL (9.6-12.0); Neutrophils % 70.5 % (38.7-73.9); Platelet Count 343 T/CUMM (130-400); Red Blood Count 2.54 MC/CUMM (3.8-5.5); Red Cell Distribution Width 19.9 % (9.3-17.3); White Blood Count 6.2 T/CUMM (4-12)
[2018-09-11 05:18] LABS: Calcium 8.5 MG/DL (8.5-10.1); Osmolality,Calculated 299.1 MOS/KG (273-304)
[2018-09-11] MEDS: FUROSEMIDE 100 MG/10 ML VIAL IV SCH (08:30)
[2018-09-11] MEDS: DOCUSATE SODIUM 100 MG CAPSULE PO SCH (08:31)
[2018-09-11] MEDS: ASCORBIC ACID 500 MG TABLET PO SCH (08:31)
[2018-09-11] MEDS: PHENYTOIN ER 100 MG CAPSULE PO SCH (08:31)
[2018-09-11] MEDS: VENLAFAXINE XR 75 MG CAPSULE PO SCH (08:31)
[2018-09-11] MEDS: ZINC OXIDE PASTE 113 GM TUBE TOP SCH (08:32)
[2018-09-11] MEDS: CLOPIDOGREL 75 MG TABLET PO SCH (08:32)
[2018-09-11] MEDS: ISOSORBIDE MONONITRATE 60 MG TABLET PO SCH (08:32)
[2018-09-11] MEDS: PANTOPRAZOLE 40 MG TABLET PO SCH (08:32)
[2018-09-11] MEDS: levETIRAcetam 250 MG TABLET PO SCH (08:32)
[2018-09-11] MEDS: METOCLOPRAMIDE 5 MG TABLET PO SCH (08:32)
[2018-09-11] MEDS: CITALOPRAM 20 MG TABLET PO SCH (08:32)
[2018-09-11] MEDS: cloNIDine 0.1 MG TABLET PO SCH (08:32)
[2018-09-11] MEDS: CARVEDILOL 25 MG TABLET PO SCH (08:32)
[2018-09-11 11:57] VITALS: BP 146/86
== END 2018-09-11 13:29 | disposition hospice, home (50) | DRG 194 ==
LOC: EDUNIT# → EDBD → N.ED 14:45 → INTOOBSV 17:12 → N.EDINP 17:12 → N.2E 17:38
PROVIDERS: ADMIT Internal Medicine; ATTEND Internal Medicine